=== PATIENT | female | born 1950 | race American Indian/Alaskan Native ===

== ENCOUNTER 2016-10-09 12:12 | Outpatient (CLI) | payer MEDICARE ==
--- NOTE | 2016-10-10 16:02 | Mammography Report ---
BONE DENSITY STUDY: DEFINITIONS: BMD = Bone Mineral Density T-score = BMD related to mean peak bone mass of young adult (mean expressed in Standard Deviation) Z-score = Age matched BMD expressed in SD World Health Organization (WHO) Diagnostic Criteria Normal T-score > -1 SD Osteopenia T-score between -1 and -2.4 SD Osteoporosis T-score -2.5 SD or below FINDINGS: The average L1-L4 BMD is 1.239 with a T-value score of 1.7. The average left hip BMD is 1.116 with a T-value score of 1.4. IMPRESSION: The patient's T-score is diagnostic for normal bone density and low relative risk for fracture. RECOMMENDATION: Follow-up with referring physician. NOTE: BMD is not the only risk factor for fracture; also consider factors such as the patient's age, risk of falling, previous osteoporotic fracture, family history of osteoporotic fractures, current smoker, and low body weight. Lakhani's triangle is a region of interest in femur, predominantly of trabecular bone. It is not a true anatomic site, and [facility] does not recommend its use clinically.
== END 2016-10-09 12:13 | disposition home or self-care (01) ==
LOC: MAMMO 12:12
PROVIDERS: ATTEND Physician Assistant
DX: M81.0 Age-related osteoporosis without current pathological fracture (principal); Z85.9 Personal history of malignant neoplasm, unspecified
CPT/HCPCS: 77080

== ENCOUNTER 2016-11-06 11:31 | Outpatient (CLI) | payer MEDICARE ==
--- NOTE | 2016-11-06 13:34 | XRay Report ---
ROUTINE CHEST, TWO VIEWS: HISTORY: Followup pleural effusion. The moderate right pleural effusion appears stable in size since 09/02/16. There is compressive atelectasis at the right lung base. No evidence for infiltrate, pleural effusion or pneumothorax. Heart size is within normal limits. Right [id number] is in good position. IMPRESSION: No change.
== END 2016-11-06 11:32 | disposition home or self-care (01) ==
LOC: XRAY 11:31
PROVIDERS: ATTEND Internal Medicine
DX: J90 Pleural effusion, not elsewhere classified (principal)
CPT/HCPCS: 71020

== ENCOUNTER 2016-12-05 12:59 | Outpatient (CLI) | payer MEDICARE ==
--- NOTE | 2016-12-05 14:32 | XRay Report ---
Bilateral knee: History: Chronic knee pain. Findings: Narrowing of the medial, lateral and patellofemoral compartment knee joint. Sclerotic articular surfaces with peripheral osteophyte suggestive of moderate to severe degenerative changes. No fracture. No soft tissue lesion. Impression: Moderate to severe tricompartment degenerative changes right and left knee.
== END 2016-12-05 13:00 | disposition home or self-care (01) ==
LOC: XRAY 12:59
PROVIDERS: ATTEND Physician Assistant
DX: M25.762 Osteophyte, left knee (principal); M25.761 Osteophyte, right knee

== ENCOUNTER 2017-04-08 12:03 | Outpatient (CLI) | payer MEDICARE ==
[2017-04-08 12:41] LABS: Blood Urea Nitrogen 17 mg/dL (7-17)
--- NOTE | 2017-04-09 08:05 | Cat Scan Report ---
CT CHEST WITH CONTRAST HISTORY: Breast cancer, pain with breathing. TECHNIQUE: Helical CT and 1.25 mm intervals with sagittal and coronal reformatted images. IV contrast was administered. COMPARISON: Correlation is made to the PET/CT dated 05/02/16. FINDINGS: Surgical changes in the left breast are again noted and appear stable. A left axillary lymph node has decreased from 2.1 cm to 1.6 cm. A left subpectoral lymph node has decreased from 2.2 cm to 1.4 cm. Borderline paratracheal lymph nodes have also decreased in size. No new thoracic adenopathy is appreciated. Right pleural drain has been removed since 05/02/16. The loculated right pleural effusion has decreased by 50% or more. No left pleural collection. There are numerous areas of focal pleural thickening and nodularity particularly within the right lung consistent with pleural metastasis. Most of the pleural nodules appear slightly decreased in size since the previous exam. For instance, a pleural-based mass in the medial right lung base has decreased from 2.2 cm to 1.4 cm. There are few tiny areas of pleural thickening along the major fissure in the left lung which probably represents early left pleural metastasis which are unchanged. 1 cm nodule in the left lower lobe is stable. No new pulmonary masses. No infiltrate or pneumothorax. Heart size is within normal limits. The mediastinal vessels are patent. Thyroid gland, tracheobronchial tree and esophagus remain within normal limits. There is mild multilevel thoracic spondylosis but no evidence for fracture or suspicious bony lesion. 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 Impression: No acute cardiopulmonary process is appreciated. Decreased complex and loculated right pleural effusion. 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 Improved left axillary/left subpectoral/peritracheal lymphadenopathy.
--- NOTE | 2017-04-09 08:10 | Cat Scan Report ---
CT ABDOMEN WITH CONTRAST HISTORY: Breast cancer, abdominal pain, pain with breathing. TECHNIQUE: Helical CT following IV contrast. Sagittal and coronal reformatted images. COMPARISON: Head CT dated 05/02/16. FINDINGS: The liver and spleen remain normal size and attenuation. No suspicious mass has developed. Noncalcified debris is identified in the gallbladder which probably represent sludge or noncalcified stone. No biliary dilatation or inflammation. The pancreas, kidneys and right adrenal gland remain normal. A 1 cm nodule is identified in the medial limb of the left adrenal gland which is unchanged since the previous PET/CT. This probably represents a small adenoma. The visualized bowel loops are normal caliber and wall thickness. The appendix is not included. The aorta is normal caliber. No evidence for abdominal adenopathy, ascites or suspicious mass. There is moderate thoracolumbar spondylosis no evidence for fracture or bony lesion. Moderate to large umbilical hernia containing fat is noted in the 3 cm neck. IMPRESSION: No evidence for metastatic disease to the abdomen. No acute process noted. Probable cholelithiasis or sludge in the gallbladder. Left adrenal adenoma, unchanged. Umbilical hernia containing fat.
== END 2017-04-08 12:04 | disposition home or self-care (01) ==
LOC: CT 12:03
DX: C78.2 Secondary malignant neoplasm of pleura (principal); C50.412 Malignant neoplasm of upper-outer quadrant of left female breast; D35.02 Benign neoplasm of left adrenal gland; K42.9 Umbilical hernia without obstruction or gangrene; K82.8 Other specified diseases of gallbladder; M47.894 Other spondylosis, thoracic region; J94.8 Other specified pleural conditions; R91.1 Solitary pulmonary nodule; J90 Pleural effusion, not elsewhere classified; E11.9 Type 2 diabetes mellitus without complications; I10 Essential (primary) hypertension; J45.909 Unspecified asthma, uncomplicated; J96.10 Chronic respiratory failure, unspecified whether with hypoxia or hypercapnia
CPT/HCPCS: 36415; 71260; 74160; 82565; 84520; Q9967

== ENCOUNTER 2017-05-15 17:50 | Emergency (ER) | payer MEDICARE ==
[2017-05-15 18:30] VITALS: BP 144/98
--- NOTE | 2017-05-15 20:37 | XRay Report ---
FINAL REPORT PROCEDURE: XR HIP 2-3V LT TECHNIQUE: AP view of the pelvis and lateral view of the left hip are obtained HISTORY: fall / left lower back / hip pain COMPARISON: No prior studies are available for comparison. FINDINGS: There is no fracture or dislocation. No arthritic changes are seen. IMPRESSION: No fracture is seen.
[2017-05-15] MEDS ORDERED: TYLENOL PO ONE (22:00)
--- NOTE | 2017-05-15 22:00 | Emergency Department Report ---
ED Fall HPI - General Chief Complaint: Fall Stated Complaint: FALL Time Seen by Provider: 05/15/17 21:16 Source: patient Mode of arrival: Wheelchair - History of Present Illness Initial Comments: This is a 66-year-old female nontoxic, well nourished in appearance, no acute signs of distress since the ED complaining of low back pain and left hip pain status post fall has occurred 3 days ago. Patient stated that her knee gave out and she fell backwards landed on her left buttock region. Patient denies any numbness, tingling, joint swelling, fever, chills, headache, nausea or vomiting, chest pain and short of breath. He denies any head trauma. Denies loss of consciousness. Patient stated that her was there during fall. Daughter and were present during fall. Daughter stated that when patient fell she was holding on to the wall and did not fall fast and hard. Patient denies any allergies. Patient denies any abnormal gait but stated she is in pain when waking due to the left hip. 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 denies: headache, neck pain, numbness, weakness, chest paint, shortness of breath, abdominal pain, hematuria, unable to walk, lightheaded, vertigo, confusion - Related Data Home Medications Medication Instructions Recorded Confirmed Last Taken Carvedilol [Carvedilol] 3.125 mg PO BID 09/02/16 09/02/16 09/01/16 3.125mg Cyproheptadine HCl [Cyproheptadine 4 mg PO DAILY 09/02/16 09/02/16 09/01/16 HCl] 4mg Exemestane [Exemestane] 25 mg PO BID 09/02/16 09/02/16 09/01/16 25mg Furosemide [Furosemide] 40 mg PO DAILY 09/02/16 09/02/16 09/01/16 40mg Metoclopramide HCl [Metoclopramide 10 mg PO DAILY 09/02/16 09/02/16 09/01/16 HCl] 10mg Previous Rx's Medication Instructions Recorded Last Taken Type Metformin HCl [Glucophage] 1,000 mg PO BID #60 tablet 02/07/16 09/01/16 Rx 1000mg Omeprazole [PriLOSEC] 20 mg PO QDAY #30 capsule. 02/07/16 09/01/16 Rx 20mg Acetaminophen [Arthritis Pain 650 mg PO Q6H #30 tablet.er 05/15/17 Unknown Rx Relief] Allergies Allergy/AdvReac Type Severity Reaction Status Date / Time No Known Allergies Allergy Verified 05/15/17 18:23 ED Review of Systems ROS: Stated complaint: FALL Other details as noted in HPI Constitutional: denies: chills, fever Eyes: denies: eye pain, eye discharge, vision change ENT: denies: ear pain, throat pain Respiratory: denies: cough, shortness of breath, wheezing Cardiovascular: denies: chest pain, palpitations Endocrine: no symptoms reported Gastrointestinal: denies: abdominal pain, nausea, diarrhea Genitourinary: denies: urgency, dysuria, discharge Musculoskeletal: back pain (low). denies: joint swelling, arthralgia Skin: denies: rash, lesions Neurological: denies: headache, weakness, paresthesias Psychiatric: denies: anxiety, depression Hematological/Lymphatic: denies: easy bleeding, easy bruising ED Past Medical Hx - Past Medical History Hx Hypertension: Yes Hx Heart Attack/AMI: No Hx Congestive Heart Failure: Yes Hx Diabetes: Yes Hx GERD: Yes Hx Liver Disease: No Hx of Cancer: Yes (left breast) Hx Seizures: No Hx Psychiatric Treatment: Yes (depression) Hx Asthma: Yes Hx COPD: Yes (O2 @ home PRN) Hx HIV: No Additional medical history: Breast Cancer- Received chemo on 03/05/16. anemia. high cholesterol - Surgical History Hx Appendectomy: Yes Additional Surgical History: Port Placement to right chest. Hyst. Left knee surgery. sinus surgery. tonsillectomy - Social History Smoking Status: Never Smoker Substance Use Type: Prescribed - Medications Home Medications: Home Medications Medication Instructions Recorded Confirmed Last Taken Type Metformin HCl [Glucophage] 1,000 mg PO BID #60 tablet 05/11/16 12/05/16 12/04/ 16 Rx 1000mg Omeprazole [PriLOSEC] 20 mg PO QDAY #30 capsule. 02/07/16 09/02/16 09/01/16 Rx 20mg Carvedilol [Carvedilol] 3.125 mg PO BID 09/02/16 09/02/16 09/01/16 History 3.125mg Cyproheptadine HCl [Cyproheptadine 4 mg PO DAILY 09/02/16 09/02/16 09/01/16 History HCl] 4mg Exemestane [Exemestane] 25 mg PO BID 09/02/16 09/02/16 09/01/16 History 25mg Furosemide [Furosemide] 40 mg PO DAILY 09/02/16 09/02/16 09/01/16 History 40mg Metoclopramide HCl [Metoclopramide 10 mg PO DAILY 09/02/16 09/02/16 09/01/16 History HCl] 10mg Acetaminophen [Arthritis Pain 650 mg PO Q6H #30 tablet.er 05/15/17 Unknown Rx Relief] ED Physical Exam - General Limitations: Physical Limitation General appearance: alert, in no apparent distress - Head Head exam: Present: atraumatic, normocephalic, normal inspection - Eye Eye exam: Present: normal appearance, PERRL, EOMI. Absent: scleral icterus, conjunctival injection, nystagmus, periorbital swelling, periorbital tenderness Pupils: Present: normal accommodation - ENT ENT exam: Present: normal exam, normal orophraynx, mucous membranes moist, TM's normal bilaterally, normal external ear exam - Neck Neck exam: Present: normal inspection, full ROM. Absent: tenderness, meningismus, lymphadenopathy, thyromegaly - Respiratory Respiratory exam: Present: normal lung sounds bilaterally. Absent: respiratory distress, wheezes, rales, rhonchi, stridor, chest wall tenderness, accessory muscle use, decreased breath sounds, prolonged expiratory - Cardiovascular Cardiovascular Exam: Present: regular rate, normal rhythm, normal heart sounds. Absent: bradycardia, tachycardia, irregular rhythm, systolic murmur, diastolic murmur, rubs, gallop - GI/Abdominal GI/Abdominal exam: Present: soft, normal bowel sounds. Absent: distended, tenderness, guarding, rebound, rigid, diminished bowel sounds - Rectal Rectal exam: Present: deferred - Extremities Exam Extremities exam: Present: normal inspection, full ROM, normal capillary refill. Absent: tenderness, pedal edema, joint swelling, calf tenderness - Expanded Lower Extremity Exam Left Hip exam: Present: normal inspection, full ROM, external rotation, internal rotation, pelvic stability. Absent: tenderness, swelling, abrasion, laceration , ecchymosis, deformity, crepidus, dislocation, erythema, shortening Upper Leg exam: Present: normal inspection, full ROM. Absent: tenderness, swelling, abrasion, laceration, ecchymosis, deformity, crepidus, dislocation, erythema Knee exam: Present: normal inspection, full ROM, full knee extension. Absent: tenderness, swelling, abrasion, laceration, ecchymosis, deformity, crepidus, dislocation, erythema, effusion, pain w/ pronation/supination, posterior draw sign, pain/laxity with valgus, pain/laxity with varus Lower Leg exam: Present: normal inspection, full ROM. Absent: tenderness, swelling, abrasion, laceration, ecchymosis, deformity, crepidus, dislocation, erythema, palpable cord, Brayan's sign Ankle exam: Present: normal inspection, full ROM. Absent: tenderness, swelling , abrasion, laceration, ecchymosis, deformity, crepidus, dislocation, erythema, anterior draw sign Foot/Toe exam: Present: normal inspection, full ROM. Absent: tenderness, swelling, abrasion, laceration, ecchymosis, deformity, crepidus, dislocation, erythema, amputation, puncture wound, foreign body, calcaneal tenderness, tenderness at base of 5th metatarsal, nail avulsion, subungual hematoma Neuro vascular tendon exam: Present: no vascular compromise. Absent: pulse deficit, abnormal cap refill, motor deficit, sensory deficit, tendon deficit, extremity cold to touch, pallor, abnormal 2-point discrimination, decreased fine /light touch, foot drop, peroneal nerve deficit, significant pain with passive ROM of distal joint Gait: Positive: observed and normal - Back Exam Back exam: Present: normal inspection, full ROM, paraspinal tenderness (lumbar region). Absent: tenderness, CVA tenderness (R), CVA tenderness (L), muscle spasm, vertebral tenderness, rash noted - Neurological Exam Neurological exam: Present: alert, oriented X3, CN II-XII intact, normal gait, reflexes normal - Psychiatric Psychiatric exam: Present: normal affect, normal mood - Skin Skin exam: Present: warm, dry, intact, normal color. Absent: rash ED Course Vital Signs 05/15/17 05/15/17 18:27 22:17 Temperature 98.9 F Pulse Rate 88 Respiratory 17 18 Rate Blood Pressure 144/98 O2 Sat by Pulse 95 Oximetry - Reevaluation(s) Reevaluation #1: 05/15/17 22:07 Patient is able to speak in full sentences with no signs of distress noted. ED Medical Decision Making - Medical Decision Making Ed course: This is a 66-year-old female that presents with low back strain and hip strain s/p fall 1- patient was examined. Xray of hip has been obtained with normal findings of any fractures or dislocation. Dictated by radiologist. Patient was notified of xray findings with no further questions noted by the patient 2- Patient received acetaminophen 650 in the ed as well as d/c 3- patient was instructed follow-up with orthopedic doctor in 3-5 days for possible MRI or if symptoms worsen such as numbness or tingling sensation in extremities, headache, dizziness, visual changes, nausea vomiting, chest pain, shortness of breathe, or abdominal pain, return back to emergency room as was possible. 4- At time time of discharge, the patient does not seem toxic or ill in appearance. No acute signs of distress noted. Patient agrees to discharge treatment plan of care. No further questions noted by the patient. 5- patient states she does have a walker present and a cane at home. 6- patient was instructed not to bear any weight due to possible occult hip fracture and until cleared by orthopedic Critical care attestation.: If time is entered above; I have spent that time in minutes in the direct care of this critically ill patient, excluding procedure time. ED Disposition Clinical Impression: Low back strain Qualifiers: Encounter type: initial encounter Qualified Code(s): S39.012A - Strain of muscle, fascia and tendon of lower back, initial encounter Strain of hip Qualifiers: Encounter type: initial encounter Laterality: left Qualified Code(s): S76.012A - Strain of muscle, fascia and tendon of left hip, initial encounter Disposition: TO HOME OR SELFCARE Is pt being admited?: No Does the pt Need Aspirin: No Condition: Stable Instructions: Acetaminophen (By mouth), Hip Sprain (ED) Additional Instructions: Do not put any weight on hip/leg until cleared by orthopedic doctor Follow-up with orthopedic doctor in 3-5 days for possible MRI or if symptoms worsen such as numbness or tingling sensation in extremities, headache, dizziness, visual changes, nausea vomiting, chest pain, shortness of breathe, or abdominal pain, return back to emergency room as was possible. Prescriptions: Acetaminophen [Arthritis Pain Relief] 650 mg PO Q6H #30 tablet.er Referrals: ANJU CASTRO MD [Primary Care Provider] - 3-5 Days JOSE NARAYAN MD [Staff Physician] - 3-5 Days [facility] [Outside] - 3-5 Days [facility] [Outside] - 3-5 Days
== END 2017-05-15 22:34 | disposition home or self-care (01) ==
LOC: ED 17:50
DX: S39.012A Strain of muscle, fascia and tendon of lower back, initial encounter (principal); S76.012A Strain of muscle, fascia and tendon of left hip, initial encounter; I50.9 Heart failure, unspecified; E11.9 Type 2 diabetes mellitus without complications; K21.9 Gastro-esophageal reflux disease without esophagitis; F32.9 Major depressive disorder, single episode, unspecified; J45.909 Unspecified asthma, uncomplicated; W17.89XA Other fall from one level to another, initial encounter; Y93.89 Activity, other specified; Y99.8 Other external cause status; Y92.89 Other specified places as the place of occurrence of the external cause
CPT/HCPCS: 99283

== ENCOUNTER 2017-05-25 15:37 | Emergency (ER) | payer MEDICARE ==
[2017-05-25] MEDS ORDERED: BENADRYL IV ONE (19:36)
[2017-05-25] MEDS ORDERED: PEPCID IV ONE (19:36)
[2017-05-25] MEDS ORDERED: DILAUDID IV ONE (19:49)
[2017-05-25] MEDS ORDERED: ZOFRAN IV ONE (19:49)
--- NOTE | 2017-05-25 20:35 | Emergency Department Report ---
HPI - General Chief Complaint: Allergic Reaction Time Seen by Provider: 05/25/17 19:36 - HPI HPI: 66 year old female with multiple past medical problems presents to the hospital with complaints of complaints about 1 PM. Swelling started to upper and lower lip to see to spread to face. Patient denies tongue or throat swelling. She feels like the swelling is causing nose to feel closed up. No shortness of breath or stridor reported. Patient has been on Benazapril for several years and last dose was this a.m. Denies rash or wheezing. ED Past Medical Hx - Past Medical History Hx Hypertension: Yes Hx Heart Attack/AMI: No Hx Congestive Heart Failure: Yes Hx Diabetes: Yes Hx GERD: Yes Hx Liver Disease: No Hx Seizures: No Hx Psychiatric Treatment: Yes (depression) Hx Asthma: Yes Hx COPD: Yes (O2 @ home PRN) Hx HIV: No Additional medical history: Breast Cancer- Received chemo on 03/05/16. anemia. high cholesterol. DVT - Surgical History Hx Appendectomy: Yes Additional Surgical History: Port Placement to right chest. Hyst. Left knee surgery. sinus surgery. tonsillectomy - Social History Smoking Status: Never Smoker Substance Use Type: None - Medications Home Medications: Home Medications Medication Instructions Recorded Confirmed Last Taken Type Omeprazole [PriLOSEC] 20 mg PO QDAY #30 capsule. 02/07/16 05/25/17 05/25/17 Rx Cyproheptadine HCl [Cyproheptadine 4 mg PO DAILY 09/02/16 05/25/17 05/25/17 History HCl] Exemestane [Exemestane] 25 mg PO DAILY 09/02/16 05/25/17 05/25/17 History Metoclopramide HCl [Metoclopramide 10 mg PO DAILY 09/02/16 05/25/17 05/24/17 21: 00 History HCl] Benazepril (Nf) 20 mg PO 05/25/17 05/25/17 History FLUoxetine [PROzac] 20 mg PO QDAY 05/25/17 05/25/17 05/25/17 History Famotidine [Pepcid] 20 mg PO BID #10 tablet 05/25/17 Unknown Rx Ferrous Sulfate [Feosol] 325 mg PO BID 05/25/17 05/25/17 05/25/17 History Furosemide [Lasix] 10 mg PO QDAY #15 tablet 05/25/17 Unknown Rx Metformin HCl [Metformin HCl ER] 1,000 mg PO QAM #30 [id number] 05/25/17 Unknown Rx amLODIPine [Norvasc] 10 mg PO DAILY 05/25/17 05/25/17 05/25/17 History diphenhydrAMINE [Benadryl CAP] 25 mg PO Q6HR PRN #20 capsule 05/25/17 Unknown Rx predniSONE [Deltasone] 40 mg PO QDAY 5 Days 05/25/17 Unknown Rx ED Review of Systems ROS: Stated complaint: LIP SWELLING Other details as noted in HPI Comment: All other systems reviewed and negative Other: Constitutional: No fevers chills or weight loss Eyes: No eye pain visual changes or discharge ENT: as per hpi Neck: Denies pain Respiratory: Denies cough wheezing shortness of breath Cardiovascular: Denies chest pain, palpitations, syncope GI: Denies abdominal pain, nausea, vomiting, diarrhea : Denies dysuria Musculoskeletal: Denies back pain Skin: Denies rash, lesions, erythema Neurologic: Denies headache, numbness, weakness Psychiatric: Denies suicidal ideation, hallucinations Physical Exam - Physical Exam Vital Signs: Vital Signs 05/25/17 05/25/17 05/25/17 15:45 15:46 15:48 Temperature Pulse Rate Respiratory Rate Blood Pressure 123/85 123/85 123/85 O2 Sat by Pulse 100 100 Oximetry 05/25/17 05/25/17 05/25/17 15:50 15:52 15:54 Temperature Pulse Rate 79 82 83 Respiratory 17 13 21 Rate Blood Pressure 123/85 123/85 123/85 O2 Sat by Pulse 100 99 100 Oximetry 05/25/17 05/25/17 05/25/17 15:55 15:56 15:58 Temperature 98.4 F Pulse Rate 74 80 Respiratory 19 13 Rate Blood Pressure 123/85 123/85 O2 Sat by Pulse 100 100 Oximetry 05/25/17 05/25/17 05/25/17 16:00 16:02 16:04 Temperature Pulse Rate 79 88 78 Respiratory 11 L 11 L 12 Rate Blood Pressure 122/84 122/84 122/84 O2 Sat by Pulse 99 100 100 Oximetry 05/25/17 05/25/17 05/25/17 16:06 16:08 16:10 Temperature Pulse Rate 76 78 73 Respiratory 15 16 12 Rate Blood Pressure 122/84 122/84 122/84 O2 Sat by Pulse 100 100 100 Oximetry 05/25/17 05/25/17 05/25/17 16:12 16:14 16:16 Temperature Pulse Rate 76 72 75 Respiratory 13 14 12 Rate Blood Pressure 122/84 122/84 120/82 O2 Sat by Pulse 100 99 100 Oximetry 05/25/17 05/25/17 05/25/17 16:18 16:20 16:22 Temperature Pulse Rate 71 80 73 Respiratory 12 13 11 L Rate Blood Pressure 120/82 120/82 120/82 O2 Sat by Pulse 99 99 100 Oximetry 05/25/17 05/25/17 05/25/17 16:24 16:26 16:28 Temperature Pulse Rate 72 76 77 Respiratory 16 12 10 L Rate Blood Pressure 120/82 120/82 120/82 O2 Sat by Pulse 100 99 100 Oximetry 05/25/17 05/25/17 05/25/17 16:30 16:32 16:34 Temperature Pulse Rate 74 73 76 Respiratory 13 11 L 12 Rate Blood Pressure 123/80 123/80 123/80 O2 Sat by Pulse 98 100 100 Oximetry 05/25/17 05/25/17 05/25/17 16:36 16:38 16:40 Temperature Pulse Rate 75 74 77 Respiratory 12 13 11 L Rate Blood Pressure 123/80 123/80 123/80 O2 Sat by Pulse 100 100 99 Oximetry 05/25/17 05/25/17 05/25/17 16:42 16:44 16:46 Temperature Pulse Rate 79 78 75 Respiratory 14 13 17 Rate Blood Pressure 123/80 123/80 121/85 O2 Sat by Pulse 99 100 100 Oximetry 05/25/17 05/25/17 05/25/17 16:48 16:50 16:52 Temperature Pulse Rate 75 75 71 Respiratory 13 11 L 12 Rate Blood Pressure 121/85 121/85 121/85 O2 Sat by Pulse 100 100 100 Oximetry 05/25/17 05/25/17 05/25/17 16:54 16:56 16:58 Temperature Pulse Rate 82 80 82 Respiratory 12 14 12 Rate Blood Pressure 121/85 121/85 121/85 O2 Sat by Pulse 99 100 99 Oximetry 05/25/17 05/25/17 05/25/17 17:00 17:02 17:04 Temperature Pulse Rate 85 79 81 Respiratory 10 L 12 12 Rate Blood Pressure 146/71 146/71 146/71 O2 Sat by Pulse 100 100 98 Oximetry 05/25/17 05/25/17 05/25/17 17:06 17:08 17:10 Temperature Pulse Rate 81 78 86 Respiratory 11 L 12 14 Rate Blood Pressure 146/71 146/71 146/71 O2 Sat by Pulse 98 99 100 Oximetry 05/25/17 05/25/17 05/25/17 17:12 17:14 17:16 Temperature Pulse Rate 83 84 87 Respiratory 12 15 15 Rate Blood Pressure 146/71 146/71 125/92 O2 Sat by Pulse 99 99 98 Oximetry 05/25/17 05/25/17 05/25/17 17:18 17:20 17:22 Temperature Pulse Rate 83 93 H 86 Respiratory 16 12 15 Rate Blood Pressure 125/92 125/92 125/92 O2 Sat by Pulse 99 99 100 Oximetry Physical Exam: General: No limitations, patient is alert in no acute distress Head exam: Atraumatic, normocephalic Eyes exam: Normal appearance, pupils equal reactive to light, extraocular movements intact ENT: Moist mucous membrane, swelling isolated to upper and mild swelling to the lower lip. No tongue swelling, no swelling to posterior oropharynx Neck exam: Normal inspection, full range of motion, no meningismus nontender Respiratory exam: Clear to auscultation bilateral, no wheezes, rales, crackles Cardiovascular: Normal rate and rhythm, normal heart sounds Abdomen: Soft, nondistended, and nontender, with normal bowel sounds, no rebound, or guarding Extremity: Full range of motion normal inspection no deformity Back: Normal Inspection, full range of motion, no tenderness Neurologic: Alert, oriented x3, cranial nerves intact, no motor or sensory deficit Psychiatric: normal affect, normal mood Skin: Warm, dry, intact, no rash ED Course Vital Signs 05/25/17 05/25/17 05/25/17 15:45 15:46 15:48 Temperature Pulse Rate Respiratory Rate Blood Pressure 123/85 123/85 123/85 O2 Sat by Pulse 100 100 Oximetry 05/25/17 05/25/17 05/25/17 15:50 15:52 15:54 Temperature Pulse Rate 79 82 83 Respiratory 17 13 21 Rate Blood Pressure 123/85 123/85 123/85 O2 Sat by Pulse 100 99 100 Oximetry 05/25/17 05/25/17 05/25/17 15:55 15:56 15:58 Temperature 98.4 F Pulse Rate 74 80 Respiratory 19 13 Rate Blood Pressure 123/85 123/85 O2 Sat by Pulse 100 100 Oximetry 05/25/17 05/25/17 05/25/17 16:00 16:02 16:04 Temperature Pulse Rate 79 88 78 Respiratory 11 L 11 L 12 Rate Blood Pressure 122/84 122/84 122/84 O2 Sat by Pulse 99 100 100 Oximetry 05/25/17 05/25/17 05/25/17 16:06 16:08 16:10 Temperature Pulse Rate 76 78 73 Respiratory 15 16 12 Rate Blood Pressure 122/84 122/84 122/84 O2 Sat by Pulse 100 100 100 Oximetry 05/25/17 05/25/17 05/25/17 16:12 16:14 16:16 Temperature Pulse Rate 76 72 75 Respiratory 13 14 12 Rate Blood Pressure 122/84 122/84 120/82 O2 Sat by Pulse 100 99 100 Oximetry 05/25/17 05/25/17 05/25/17 16:18 16:20 16:22 Temperature Pulse Rate 71 80 73 Respiratory 12 13 11 L Rate Blood Pressure 120/82 120/82 120/82 O2 Sat by Pulse 99 99 100 Oximetry 05/25/17 05/25/17 05/25/17 16:24 16:26 16:28 Temperature Pulse Rate 72 76 77 Respiratory 16 12 10 L Rate Blood Pressure 120/82 120/82 120/82 O2 Sat by Pulse 100 99 100 Oximetry 05/25/17 05/25/17 05/25/17 16:30 16:32 16:34 Temperature Pulse Rate 74 73 76 Respiratory 13 11 L 12 Rate Blood Pressure 123/80 123/80 123/80 O2 Sat by Pulse 98 100 100 Oximetry 05/25/17 05/25/17 05/25/17 16:36 16:38 16:40 Temperature Pulse Rate 75 74 77 Respiratory 12 13 11 L Rate Blood Pressure 123/80 123/80 123/80 O2 Sat by Pulse 100 100 99 Oximetry 05/25/17 05/25/17 05/25/17 16:42 16:44 16:46 Temperature Pulse Rate 79 78 75 Respiratory 14 13 17 Rate Blood Pressure 123/80 123/80 121/85 O2 Sat by Pulse 99 100 100 Oximetry 05/25/17 05/25/17 05/25/17 16:48 16:50 16:52 Temperature Pulse Rate 75 75 71 Respiratory 13 11 L 12 Rate Blood Pressure 121/85 121/85 121/85 O2 Sat by Pulse 100 100 100 Oximetry 05/25/17 05/25/17 05/25/17 16:54 16:56 16:58 Temperature Pulse Rate 82 80 82 Respiratory 12 14 12 Rate Blood Pressure 121/85 121/85 121/85 O2 Sat by Pulse 99 100 99 Oximetry 05/25/17 05/25/17 05/25/17 17:00 17:02 17:04 Temperature Pulse Rate 85 79 81 Respiratory 10 L 12 12 Rate Blood Pressure 146/71 146/71 146/71 O2 Sat by Pulse 100 100 98 Oximetry 05/25/17 05/25/17 05/25/17 17:06 17:08 17:10 Temperature Pulse Rate 81 78 86 Respiratory 11 L 12 14 Rate Blood Pressure 146/71 146/71 146/71 O2 Sat by Pulse 98 99 100 Oximetry 05/25/17 05/25/17 05/25/17 17:12 17:14 17:16 Temperature Pulse Rate 83 84 87 Respiratory 12 15 15 Rate Blood Pressure 146/71 146/71 125/92 O2 Sat by Pulse 99 99 98 Oximetry 05/25/17 05/25/17 05/25/17 17:18 17:20 17:22 Temperature Pulse Rate 83 93 H 86 Respiratory 16 12 15 Rate Blood Pressure 125/92 125/92 125/92 O2 Sat by Pulse 99 99 100 Oximetry - Reevaluation(s) Reevaluation #1: 05/25/17 21:23 Patient received Benadryl, Pepcid, and Solu-Medrol. Dilaudid and Zofran given for chronic pain 05/25/17 22:20 Pt is lower lip swelling has improved however upper lip still swollen. Still denies any still denies any tongue swelling or throat swelling at this time ED Medical Decision Making - Medical Decision Making Patient was observed for several hours in the ED. Symptoms are not significantly advanced and actually improved at the ED treatment. Patient will be discharged home on medications for allergic reaction. Patient instructed to to discontinue her benazepril and follow-up with PMD for further BP medication adjustment as necessary. Outpatient follow-up with PMD will be encouraged. I will restart patient's metformin and Lasix as requested since she no longer has any more of the medication. - Differential Diagnosis allergic reaction, angioedema Critical Care Time: No Critical care attestation.: If time is entered above; I have spent that time in minutes in the direct care of this critically ill patient, excluding procedure time. ED Disposition Clinical Impression: CHRISTEL inhibitor-aggravated angioedema Disposition: DC- TO HOME OR SELFCARE Is pt being admited?: No Does the pt Need Aspirin: No Condition: Stable Instructions: Angioedema (ED) Additional Instructions: STOP BENAZAPRIL. Please report Benazepril as and allergy and inform your health care providers that this medicine causes your lip to swell while taking this medication. Follow-up with primary care doctor for further adjustment of blood pressure medication. Take the allergy medication as prescribed. Contineu to monitor your sugars closely because steroids may cause your sugar to be elevated more than normal. Return if symptoms worsen. Prescriptions: diphenhydrAMINE [Benadryl CAP] 25 mg PO Q6HR PRN #20 capsule PRN Reason: Allergic Reaction Famotidine [Pepcid] 20 mg PO BID #10 tablet Furosemide [Lasix] 10 mg PO QDAY #15 tablet Metformin HCl [Metformin HCl ER] 1,000 mg PO QAM #30 [id number] predniSONE [Deltasone] 40 mg PO QDAY 5 Days Referrals: PRIMARY CARE, [Primary Care Provider] - 2-3 Days Time of Disposition: 22:33
[2017-05-25 23:11] VITALS: BP 146/97
== END 2017-05-25 23:08 | disposition home or self-care (01) ==
LOC: ED 15:37
DX: T78.3XXA Angioneurotic edema, initial encounter (principal); I11.0 Hypertensive heart disease with heart failure; I50.9 Heart failure, unspecified; E11.9 Type 2 diabetes mellitus without complications; K21.9 Gastro-esophageal reflux disease without esophagitis; J44.9 Chronic obstructive pulmonary disease, unspecified
CPT/HCPCS: 82962; 96374; 96375; 99283; J1170; J1200; J2405; J2930

== ENCOUNTER 2017-07-25 08:20 | Outpatient (CLI) | payer MEDICARE ==
[2017-07-25 08:37] LABS: Hematocrit 32.1 % (30.3-42.9); Hemoglobin 10.1 gm/dl (10.1-14.3); Mean Corpuscular HGB Conc 32 % (30-34); Platelet Count 363 K/mm3 (140-440); Red Blood Count 4.62 M/mm3 (3.65-5.03); Red Cell Distribution Width 19.3 % (13.2-15.2); White Blood Count 6.3 K/mm3 (4.5-11.0)
[2017-07-25 08:38] LABS: Mean Corpuscular Hemoglobin 22 pg (28-32); Mean Corpuscular Volume 69 fl (79-97)
[2017-07-25 08:57] LABS: Alanine Aminotransferase 26 units/L (7-56); Albumin/Globulin Ratio 0.8 %; Alkaline Phosphatase 71 units/L (35-129); Anion Gap 20 mmol/L; BUN/Creatinine Ratio 12; Blood Urea Nitrogen 11 mg/dL (7-17); Calcium 8.7 mg/dL (8.4-10.2); Carbon Dioxide 26 mmol/L (22-30); Chloride 100.9 mmol/L (98-107); Glucose 126 mg/dL (65-100); Potassium 3.6 mmol/L (3.6-5.0); Sodium 143 mmol/L (137-145); Total Protein 6.9 g/dL (6.3-8.2)
[2017-07-25] MEDS ORDERED: NACL ONE (09:05)
--- NOTE | 2017-07-25 15:22 | Cat Scan Report ---
CTA CHEST INDICATION: Shortness of breath. Breast cancer. COMPARISON: 04/08/2017 FINDINGS: Chest CTA performed following intravenous administration of 100 cc of Omnipaque 350. Rotational MIP's also obtained. Stable, normal heart size and great vessels without aortic aneurysm, dissection or suspicious pulmonary arterial filling defects. Patent central airway. Few small mediastinal lymph nodes may again be noted as also an approximately 1.2 cm right paratracheal lymph node, axial image 65, series 2. No pericardial effusion. Approximately 1.9 cm left axillary lymph node again noted, axial image 61 series 2, previously 1.6 cm. Few left subpectoral lymph nodes also appear stable, axial image 43. Normal imaged thyroid. Increased interstitial densities within both lungs now noted, greatest at the right lung base/lower lobe with few confluent opacities measuring approximately 3 x 2.5 cm on axial image 141, series 2. Small, somewhat loculated right pleural fluid again noted, stable to slightly smaller along inner aspect of the right ribs and measuring approximately 3.5 x 2.8 cm, axial image 153, series 2, previously approximately 5.2 x 3 cm, axial image 82. Multifocal right hemithorax nodular pleural thickening/masses again noted, axial series 2, images 18-178 with an index lesion approximately 2.7 x 1.2 cm on axial image 145, series 2, previously the same. Approximately 8 mm noncalcified presumed metastatic nodule in the superior segment of the left lower lobe again noted, axial image 103, series 2. Nonspecific distal esophageal wall prominence/thickening, not excluded for gastroesophageal reflux and/or hiatal hernia, amongst others. Few metastatic masses again project adjacent/posterior to the liver, possibly along the pleura posteriorly as measuring approximately 3 cm, axial image 162 and approximately 4 cm, axial image 173, amongst others. Mild air filled distal esophageal prominence/wall thickening, not excluded for gastroesophageal reflux and/or hiatal hernia, amongst illness. Approximately 9 mm hypodense left adrenal nodule/adenoma appears stable, axial image 194. Mild multilevel thoracic spine degenerative changes. CONCLUSION: 1. No CT evidence of pulmonary embolism, though scattered bilateral interstitial infiltrates are new and noted greatest at the right lung base/lower lobe, as described. These may represent lymphangitic spread of tumor in this patient with multiple/diffuse right pleural metastases, left lower lobe nodule and left axillary/subpectoral lymph nodes again noted, as described. Please correlate. 2. Few other incidental findings, as above. Thank you for the opportunity to participate in this patient's care.
--- NOTE | 2017-07-28 07:30 | Vascular Lab Report ---
LOWER EXTREMITY VENOUS DUPLEX: REASON FOR EXAM: Swelling of the lower extremities. COMMENTS ON THE RIGHT: All veins visualized are freely compressible without evidence of internal echogenicity. Flow is spontaneous and phasic throughout. COMMENTS ON THE LEFT: All veins visualized are freely compressible without evidence of internal echogenicity. Flow is spontaneous and phasic throughout. IMPRESSION: No evidence of acute or chronic deep venous thrombosis in either lower extremity.
== END 2017-07-25 08:21 | disposition home or self-care (01) ==
LOC: CT 08:20
PROVIDERS: ATTEND Internal Medicine
DX: C78.2 Secondary malignant neoplasm of pleura (principal); M47.894 Other spondylosis, thoracic region; R91.8 Other nonspecific abnormal finding of lung field; R60.9 Edema, unspecified
CPT/HCPCS: 36415; 71275; 80053; 85027; 93970; Q9967

== ENCOUNTER 2018-11-16 10:19 | Outpatient (CLI) | payer MEDICARE ==
[2018-11-16 11:19] LABS: Hematocrit 38.9 % (30.3-42.9); Hemoglobin 12.3 gm/dl (10.1-14.3); Mean Corpuscular HGB Conc 32 % (30-34); Mean Corpuscular Volume 84 fl (79-97); Platelet Count 389 K/mm3 (140-440); Red Blood Count 4.61 M/mm3 (3.65-5.03)
[2018-11-16 11:23] LABS: Red Cell Distribution Width 28.9 % (13.2-15.2)
[2018-11-16 11:44] LABS: Alanine Aminotransferase 8 units/L (7-56); BUN/Creatinine Ratio 19; Blood Urea Nitrogen 17 mg/dL (7-17); Calcium 9.4 mg/dL (8.4-10.2); Hemolysis Index 8
--- NOTE | 2018-11-16 12:20 | Ultrasound Report ---
ULTRASOUND CHEST History: Chronic cough. Findings: Targeted grayscale ultrasound of both sides of the chest were performed. A large left pleural effusion is identified measuring approximately 1900 cc. No left pleural effusion was detected. Impression: Large right pleural effusion.
== END 2018-11-16 10:20 | disposition home or self-care (01) ==
LOC: US 10:19
PROVIDERS: ATTEND Internal Medicine
DX: J90 Pleural effusion, not elsewhere classified (principal); K21.9 Gastro-esophageal reflux disease without esophagitis; E11.9 Type 2 diabetes mellitus without complications; I11.0 Hypertensive heart disease with heart failure; I50.9 Heart failure, unspecified; J44.9 Chronic obstructive pulmonary disease, unspecified; E66.9 Obesity, unspecified; Z90.710 Acquired absence of both cervix and uterus
CPT/HCPCS: 36415; 76604; 80053; 85027

== ENCOUNTER 2018-11-23 07:24 | Day surgery (SDC) | payer MEDICARE ==
[2018-11-23 09:34] LABS: INR 1.01 (0.87-1.13)
--- NOTE | 2018-11-23 10:29 | Short Stay Summary ---
Short Stay Documentation Date of service: 11/23/18 - History Principal diagnosis: left pleural effusion Past Medical History: cancer (left breast CA) - Allergies and Medications Current Medications: Allergies benazepril Adverse Reaction (Verified 05/25/17 22:24) Angioedema Home Medications Medication Instructions Recorded Confirmed Last Taken Type Omeprazole [PriLOSEC] 20 mg PO QDAY #30 capsule. 02/07/16 11/23/18 11/22/18 Rx 20mg Exemestane 25 mg PO DAILY 09/02/16 11/23/18 11/22/18 History 25mg FLUoxetine [PROzac] 20 mg PO QDAY 05/25/17 11/23/18 11/22/18 History 20mg amLODIPine [Norvasc] 10 mg PO DAILY 05/25/17 11/23/18 11/22/18 History 10mg Apixaban [Eliquis] 5 mg PO DAILY 11/23/18 11/23/18 11/20/18 History 5mg Atenolol [Tenormin] 100 mg PO DAILY 11/23/18 11/23/18 11/22/18 History 100mg Carvedilol [Coreg] 3.125 mg PO BID 11/23/18 11/23/18 11/22/18 History 3.125mg Everolimus [Afinitor] 10 mg PO DAILY 11/23/18 11/23/18 11/22/18 History 10mg Fluticasone [Flonase] 50 mcg INHALATION DAILY 11/23/18 11/23/18 11/22/18 History 50mcg Furosemide [Lasix] 40 mg PO QDAY 11/23/18 11/23/18 11/22/18 History 40mg Loratadine [Claritin] 10 mg PO DAILY 11/23/18 11/23/18 11/22/18 History 10mg Losartan [Cozaar] 25 mg PO DAILY 11/23/18 11/23/18 11/22/18 History 25mg Metformin HCl [Metformin HCl ER] 1,000 mg PO BID 11/23/18 11/23/18 11/22/18 History Potassium Chloride [Klor-Con M10] 10 meq PO DAILY 11/23/18 11/23/18 11/22/18 History 10meq Umeclidinium Brm/Vilanterol Tr 25 mcg INTRANASAL DAILY 11/23/18 11/23/18 11/22/18 History [Anoro Ellipta 62.5-25 Mcg INH] 25mcg oxyCODONE /ACETAMINOPHEN [Percocet 1 tab PO Q8HR PRN 11/23/18 11/23/18 11/22/18 History 5/325 mg] 1 traZODone [Desyrel] 100 mg PO DAILY 11/23/18 11/23/18 11/22/18 History 100mg - Physical exam General appearance: mild distress, well-nourished Lungs: Other (decreased BS on left) - Brief post op/procedure progress note Date of procedure: 11/23/18 Pre-op diagnosis: left pleural effusion Post-op diagnosis: other (left hemothorax) Procedure: US left thoracentesis Anesthesia: local Findings: large left pleural fluid collection Surgeon: RENE PATHAK Estimated blood loss: none Pathology: list (120cc) Specimen disposition: to lab Condition: stable - Disposition Condition at discharge: Good Disposition: DC-01 TO HOME OR SELFCARE Short Stay Discharge Plan Follow up with: JOSE ALBERTO WONG MD [Primary Care Provider] - 7 Days
--- NOTE | 2018-11-23 10:54 | Ultrasound Report ---
ULTRASOUND THORACENTESIS History: Left Pleural effusion Description of procedure: Informed consent was obtained. Sterile technique was utilized. 1% lidocaine for skin anesthesia. Using ultrasound guidance, a 5 [place] centesis needle was advanced into the left pleural space. There was spontaneous return of bloody fluid. 1700 cc of fluid was aspirated. 120 cc of fluid was sent to the lab for analysis. No complications. A followup chest x-ray was ordered. Impression: Successful ultrasound-guided left thoracentesis.
[2018-11-23 11:34] VITALS: BP 101/59
[2018-11-23 11:53] LABS: Alanine Aminotransferase 8 units/L (7-56); Albumin 3.8 g/dL (3.9-5); BUN/Creatinine Ratio 18; Blood Urea Nitrogen 18 mg/dL (7-17); Calcium 8.9 mg/dL (8.4-10.2); Hemolysis Index 2
--- NOTE | 2018-11-23 12:24 | XRay Report ---
AP CHEST: HISTORY: Recent left thoracentesis, pleural effusion Recent ultrasound-guided left pleural effusion was performed. 1700 cc of bloody fluid was removed. There is near-complete evacuation of the left pleural fluid. No evidence for pneumothorax. IMPRESSION: No evidence for pneumothorax.
[2018-11-23 12:44] LABS: Total Cells Counted 100 /mm3
== END 2018-11-23 13:07 | disposition home or self-care (01) ==
LOC: CATHLABREC 07:24 → EDSTATUS 07:30 → CATHLABREC 13:07
PROVIDERS: ATTEND Internal Medicine
DX: J90 Pleural effusion, not elsewhere classified (principal); J96.10 Chronic respiratory failure, unspecified whether with hypoxia or hypercapnia; E11.9 Type 2 diabetes mellitus without complications; K21.9 Gastro-esophageal reflux disease without esophagitis; D72.829 Elevated white blood cell count, unspecified; I11.0 Hypertensive heart disease with heart failure; I50.9 Heart failure, unspecified; J44.9 Chronic obstructive pulmonary disease, unspecified; F32.9 Major depressive disorder, single episode, unspecified; D64.9 Anemia, unspecified; E66.9 Obesity, unspecified; Z68.39 Body mass index [BMI] 39.0-39.9, adult; Z79.899 Other long term (current) drug therapy; Z79.84 Long term (current) use of oral hypoglycemic drugs; Z79.01 Long term (current) use of anticoagulants; Z90.49 Acquired absence of other specified parts of digestive tract; Z90.710 Acquired absence of both cervix and uterus; Z85.3 Personal history of malignant neoplasm of breast; Z98.890 Other specified postprocedural states; Z88.8 Allergy status to other drugs, medicaments and biological substances
CPT/HCPCS: 32555; 36415; 71045; 80053; 83605; 83615; 84160; 85610; 87116; 88112; 88305; 88341; 88342; 89051

== ENCOUNTER 2018-12-08 16:27 | Inpatient (IN) | payer MEDICARE ==
--- NOTE | 2018-12-08 16:45 | Emergency Department Report ---
ED Shortness of Breath HPI - General Stated Complaint: DIFFICULTY BREATHING Time Seen by Provider: 12/08/18 16:36 - History of Present Illness Initial Comments: Patient is 68 years old female with history of congestive heart failure, hypertension, diabetes and breast cancer. Patient presented to the ER complaining of shortness of breath since yesterday with hypoxia. Patient was sent from our freight tallier office. Patient had thoracocentesis by inte rventional radiologist at 2 weeks ago for left pleural effusion. According to the freight tallier office patient initial oxygen saturation was 68%. Patient was put on nasal cannula 4 L/m and hypoxia and saturation went up to 95%. Patient denied any chest pain, fever, nausea or vomiting. MD Complaint: shortness of breath - Related Data Home Medications Medication Instructions Recorded Confirmed Last Taken Exemestane 25 mg PO DAILY 09/02/16 11/23/18 11/22/18 25mg FLUoxetine [PROzac] 20 mg PO QDAY 05/25/17 11/23/18 11/22/18 20mg amLODIPine [Norvasc] 10 mg PO DAILY 05/25/17 11/23/18 11/22/18 10mg Apixaban [Eliquis] 5 mg PO DAILY 11/23/18 11/23/18 11/20/18 5mg Atenolol [Tenormin] 100 mg PO DAILY 11/23/18 11/23/18 11/22/18 100mg Carvedilol [Coreg] 3.125 mg PO BID 11/23/18 11/23/18 11/22/18 3.125mg Everolimus [Afinitor] 10 mg PO DAILY 11/23/18 11/23/18 11/22/18 10mg Fluticasone [Flonase] 50 mcg INHALATION DAILY 11/23/18 11/23/18 11/22/18 50mcg Furosemide [Lasix] 40 mg PO QDAY 11/23/18 11/23/18 11/22/18 40mg Loratadine [Claritin] 10 mg PO DAILY 11/23/18 11/23/18 11/22/18 10mg Losartan [Cozaar] 25 mg PO DAILY 11/23/18 11/23/18 11/22/18 25mg Metformin HCl [Metformin HCl ER] 1,000 mg PO BID 11/23/18 11/23/18 11/22/18 Potassium Chloride [Klor-Con M10] 10 meq PO DAILY 11/23/18 11/23/18 11/22/18 10meq Umeclidinium Brm/Vilanterol Tr 25 mcg INTRANASAL DAILY 11/23/18 11/23/18 11/22/18 [Anoro Ellipta 62.5-25 Mcg INH] 25mcg oxyCODONE /ACETAMINOPHEN [Percocet 1 tab PO Q8HR PRN 11/23/18 11/23/18 11/22/18 5/325 mg] 1 traZODone [Desyrel] 100 mg PO DAILY 11/23/18 11/23/18 11/22/18 100mg Previous Rx's Medication Instructions Recorded Last Taken Type Omeprazole [PriLOSEC] 20 mg PO QDAY #30 capsule. 02/07/16 11/22/18 Rx 20mg Allergies Allergy/AdvReac Type Severity Reaction Status Date / Time benazepril AdvReac Angioedema Verified 05/25/17 22:24 ED Review of Systems ROS: Stated complaint: DIFFICULTY BREATHING Other details as noted in HPI Comment: All other systems reviewed and negative Constitutional: denies: chills, fever Respiratory: orthopnea, shortness of breath, SOB with exertion, SOB at rest. denies: cough, wheezing Cardiovascular: denies: chest pain, palpitations Gastrointestinal: denies: abdominal pain, nausea, vomiting, diarrhea, constipation, hematemesis, melena, hematochezia Musculoskeletal: denies: back pain Neurological: denies: headache, weakness, numbness, paresthesias ED Past Medical Hx - Past Medical History Hx Hypertension: Yes Hx Heart Attack/AMI: No Hx Congestive Heart Failure: Yes Hx Diabetes: Yes Hx GERD: Yes Hx Liver Disease: No Hx Seizures: No Hx Psychiatric Treatment: Yes (depression) Hx Asthma: Yes Hx COPD: Yes (O2 @ home PRN) Hx HIV: No Additional medical history: Breast Cancer- Received chemo on 03/05/16. anemia. high cholesterol. DVT - Surgical History Hx Appendectomy: Yes Additional Surgical History: Port Placement to right chest. Hyst. Left knee surgery. sinus surgery. tonsillectomy - Social History Smoking Status: Never Smoker - Medications Home Medications: Home Medications Medication Instructions Recorded Confirmed Last Taken Type Omeprazole [PriLOSEC] 20 mg PO QDAY #30 capsule. 02/07/16 11/23/18 11/22/18 Rx 20mg Exemestane 25 mg PO DAILY 09/02/16 11/23/18 11/22/18 History 25mg FLUoxetine [PROzac] 20 mg PO QDAY 05/25/17 11/23/18 11/22/18 History 20mg amLODIPine [Norvasc] 10 mg PO DAILY 05/25/17 11/23/18 11/22/18 History 10mg Apixaban [Eliquis] 5 mg PO DAILY 11/23/18 11/23/18 11/20/18 History 5mg Atenolol [Tenormin] 100 mg PO DAILY 11/23/18 11/23/18 11/22/18 History 100mg Carvedilol [Coreg] 3.125 mg PO BID 11/23/18 11/23/18 11/22/18 History 3.125mg Everolimus [Afinitor] 10 mg PO DAILY 11/23/18 11/23/18 11/22/18 History 10mg Fluticasone [Flonase] 50 mcg INHALATION DAILY 11/23/18 11/23/18 11/22/18 History 50mcg Furosemide [Lasix] 40 mg PO QDAY 11/23/18 11/23/18 11/22/18 History 40mg Loratadine [Claritin] 10 mg PO DAILY 11/23/18 11/23/18 11/22/18 History 10mg Losartan [Cozaar] 25 mg PO DAILY 11/23/18 11/23/18 11/22/18 History 25mg Metformin HCl [Metformin HCl ER] 1,000 mg PO BID 11/23/18 11/23/18 11/22/18 History Potassium Chloride [Klor-Con M10] 10 meq PO DAILY 11/23/18 11/23/18 11/22/18 History 10meq Umeclidinium Brm/Vilanterol Tr 25 mcg INTRANASAL DAILY 11/23/18 11/23/18 11/22/18 History [Anoro Ellipta 62.5-25 Mcg INH] 25mcg oxyCODONE /ACETAMINOPHEN [Percocet 1 tab PO Q8HR PRN 11/23/18 11/23/18 11/22/18 History 5/325 mg] 1 traZODone [Desyrel] 100 mg PO DAILY 11/23/18 11/23/18 11/22/18 History 100mg ED Physical Exam - General General appearance: alert, in distress (moderate respiratory distress) - Head Head exam: Present: atraumatic, normocephalic, normal inspection - Eye Eye exam: Present: normal appearance, PERRL - ENT ENT exam: Present: normal exam, normal orophraynx, mucous membranes moist - Neck Neck exam: Present: normal inspection, full ROM. Absent: tenderness, meningismus, lymphadenopathy, thyromegaly - Respiratory Respiratory exam: Present: respiratory distress (moderate respiratory distress), decreased breath sounds (left lower lobe). Absent: wheezes, rales, rhonchi, stridor, chest wall tenderness, accessory muscle use, prolonged expiratory - Cardiovascular Cardiovascular Exam: Present: regular rate, normal rhythm, normal heart sounds - GI/Abdominal GI/Abdominal exam: Present: soft, normal bowel sounds. Absent: distended, tenderness, guarding, rebound, rigid, mass, bruit, pulsatile mass, hernia - Extremities Exam Extremities exam: Present: normal inspection, full ROM, normal capillary refill - Back Exam Back exam: Present: normal inspection, full ROM. Absent: tenderness, CVA tenderness (R), CVA tenderness (L), muscle spasm, paraspinal tenderness, vertebral tenderness - Neurological Exam Neurological exam: Present: alert, oriented X3, CN II-XII intact - Psychiatric Psychiatric exam: Present: normal mood - Skin Skin exam: Present: warm, intact, normal color ED Course Vital Signs 12/08/18 12/08/18 12/08/18 16:36 16:44 16:45 Temperature 98.4 F 98.4 F Pulse Rate 84 84 Respiratory 16 16 Rate Blood Pressure 103/67 Blood Pressure 103/67 [Right] O2 Sat by Pulse 94 94 94 Oximetry 12/08/18 12/08/18 12/08/18 16:46 17:00 17:16 Temperature Pulse Rate 80 79 80 Respiratory 20 18 22 Rate Blood Pressure 103/67 103/67 103/67 Blood Pressure [Right] O2 Sat by Pulse 95 96 94 Oximetry 12/08/18 12/08/18 12/08/18 17:30 17:48 18:00 Temperature Pulse Rate 76 Respiratory 18 Rate Blood Pressure 103/67 103/67 103/67 Blood Pressure [Right] O2 Sat by Pulse 94 65 L 94 Oximetry - Consultations Consultation #1: 12/08/18 19:31 I discussed the patient is Dr. Saini, he stated that he is familiar with the patient. He agreed with the plan that patient is still have a thoracocentesis tomorrow ultrasound-guided by interventional radiologist. ED Medical Decision Making - Lab Data Result diagrams: 12/08/18 17:03 12/08/18 17:03 - EKG Data -: EKG Interpreted by Me EKG shows normal: sinus rhythm Rate: tachycardia - Radiology Data Radiology results: report reviewed - Medical Decision Making Patient is 68 years old female with history of congestive heart failure, hypertension, diabetes and breast cancer. Patient presented to the ER complaining of shortness of breath since yesterday with hypoxia. Patient was sent from our freight tallier office. Patient had thoracocentesis by interventional radiologist at 2 weeks ago for left pleural effusion. According to the freight tallier office patient initial oxygen saturation was 68%. Patient was put on nasal cannula 4 L/m and hypoxia and saturation went up to 95%. Patient denied any chest pain, fever, nausea or vomiting Patient remained stable in the emergency room on 4 L with an oxygen saturation of 96%. Patient evaluated by me multiple times. Patient stated that she is feeling better. I discussed the patient with DR Maravilla, he agreed to admit the patient to medical service for thoracocentesis in the morning by interventional radiologist. Critical Care Time: Yes Critical care time in (mins) excluding proc time.: 30 Critical care attestation.: If time is entered above; I have spent that time in minutes in the direct care of this critically ill patient, excluding procedure time. ED Disposition Clinical Impression: Difficulty breathing, Pleural effusion on left Disposition: [id number] OP ADMIT IP TO THIS HOSP Is pt being admited?: Yes Condition: Stable
[2018-12-08 17:46] LABS: Hematocrit 34.8 % (30.3-42.9); Hemoglobin 11.4 gm/dl (10.1-14.3); Mean Corpuscular HGB Conc 33 % (30-34); Mean Corpuscular Volume 89 fl (79-97); Platelet Count 381 K/mm3 (140-440); Red Blood Count 3.93 M/mm3 (3.65-5.03)
[2018-12-08 17:47] LABS: Red Cell Distribution Width 26.9 % (13.2-15.2)
--- NOTE | 2018-12-08 17:47 | XRay Report ---
PROCEDURES: XR CHEST 1V AP TECHNIQUE: AP portable view of the chest. HISTORY: Dyspnea COMPARISON: CXR 11/23/2018 FINDINGS: Lines, tubes, and devices: Right subclavian port catheter terminates in the distal superior vena cava Lungs and pleura: Trachea is normal in position. There is a new large left pleural effusion involving the lower two thirds of left hemithorax. Blunting of the right costophrenic angle is reduced. Severa l areas of pleural-based density in the right lateral lung are stable. Cardiomediastinal silhouette: Cardiac and mediastinal silhouettes are slightly shifted to the right d ue to the large pleural effusion. Other: Bony structures are intact. IMPRESSION: Left pleural effusion. Otherwise no change This document is electronically signed by Loretta James MD., December 08 2018 05:45:32 PM ET
[2018-12-08 17:50] LABS: INR 1.12 (0.87-1.13); Partial Thromboplastin Time 21.3 Sec. (24.2-36.6)
[2018-12-08 18:07] LABS: BUN/Creatinine Ratio 18; Blood Urea Nitrogen 18 mg/dL (7-17); Calcium 9.2 mg/dL (8.4-10.2); Hemolysis Index 128
[2018-12-08 18:28] LABS: Basophils % (Manual) 0 % (0.0-1.8); RBC Morphology Normal; Total Cells Counted 100
--- NOTE | 2018-12-08 22:22 | History and Physical Report ---
History of Present Illness Date of examination: 12/08/18 Date of admission: 12/08/18 18:21 Medications and Allergies Allergies Allergy/AdvReac Type Severity Reaction Status Date / Time benazepril AdvReac Angioedema Verified 05/25/17 22:24 Home Medications Medication Instructions Recorded Confirmed Last Taken Type Omeprazole [PriLOSEC] 20 mg PO QDAY #30 capsule. 02/07/16 12/08/18 11/22/18 Rx 20mg amLODIPine [Norvasc] 10 mg PO DAILY 05/25/17 12/08/18 11/22/18 History 10mg Apixaban [Eliquis] 5 mg PO BID 11/23/18 12/08/18 11/20/18 History 5mg Carvedilol [Coreg] 3.125 mg PO BIDWM 11/23/18 12/08/18 11/22/18 History 3.125mg Furosemide [Lasix] 20 mg PO BID 11/23/18 12/08/18 11/22/18 History 40mg Losartan [Cozaar] 25 mg PO DAILY 11/23/18 12/08/18 11/22/18 History 25mg Potassium Chloride [Klor-Con M10] 10 meq PO DAILY 11/23/18 12/08/18 11/22/18 History 10meq Umeclidinium Brm/Vilanterol Tr 1 puff IH DAILY 11/23/18 12/08/18 11/22/18 History [Anoro Ellipta 62.5-25 Mcg INH] 25mcg Fulvestrant (Nf) [Faslodex (Nf) 500 mg IM QMONTH 12/08/18 12/08/18 Unknown History Inj] Metformin HCl [Glucophage] 1,000 mg PO BID 12/08/18 12/08/18 Unknown History Palbociclib [Ibrance] 100 mg PO DAILY 12/08/18 12/08/18 Unknown History Exam - Constitutional Vitals: Temp Pulse Resp BP Pulse Ox 98.4 F 86 20 105/70 94 12/08/18 16:45 12/08/18 19:30 12/08/18 19:30 12/08/18 19:30 12/08/18 19:30 Results - Labs CBC & Chem 7: 12/08/18 17:03 12/08/18 17:03 Labs: Laboratory Last Values WBC 5.9 K/mm3 (4.5-11.0) 12/08/18 17:03 RBC 3.93 M/mm3 (3.65-5.03) 12/08/18 17:03 Hgb 11.4 gm/dl (10.1-14.3) 12/08/18 17:03 Hct 34.8 % (30.3-42.9) 12/08/18 17:03 MCV 89 fl (79-97) 12/08/18 17:03 MCH 29 pg (28-32) 12/08/18 17:03 MCHC 33 % (30-34) 12/08/18 17:03 RDW 26.9 % (13.2-15.2) H 12/08/18 17:03 Plt Count 381 K/mm3 (140-440) 12/08/18 17:03 Lymph % (Auto) Relay Man 12/08/18 17:03 [place] % (Auto) Relay Man 12/08/18 17:03 Eos % (Auto) Relay Man 12/08/18 17:03 Baso % (Auto) Relay Man 12/08/18 17:03 Lymph # Relay Man 12/08/18 17:03 [place] # Relay Man 12/08/18 17:03 Eos # Relay Man 12/08/18 17:03 Baso # Relay Man 12/08/18 17:03 Add Manual Diff Complete 12/08/18 17:03 Total Counted 100 12/08/18 17:03 Seg Neutrophils % Relay Man 12/08/18 17:03 Seg Neuts % (Manual) 70.0 % (40.0-70.0) 12/08/18 17:03 Band Neutrophils % 0 % 12/08/18 17:03 Lymphocytes % (Manual) 19.0 % (13.4-35.0) 12/08/18 17:03 Reactive Lymphs % (Man) 0 % 12/08/18 17:03 Monocytes % (Manual) 7.0 % (0.0-7.3) 12/08/18 17:03 Eosinophils % (Manual) 4.0 % (0.0-4.3) 12/08/18 17:03 Basophils % (Manual) 0 % (0.0-1.8) 12/08/18 17:03 Metamyelocytes % 0 % 12/08/18 17:03 Myelocytes % 0 % 12/08/18 17:03 Promyelocytes % 0 % 12/08/18 17:03 Blast Cells % 0 % 12/08/18 17:03 Nucleated RBC % Not Reportable 12/08/18 17:03 Seg Neutrophils # Relay Man 12/08/18 17:03 Seg Neutrophils # Man 4.1 K/mm3 (1.8-7.7) 12/08/18 17:03 Band Neutrophils # 0.0 K/mm3 12/08/18 17:03 Lymphocytes # (Manual) 1.1 K/mm3 (1.2-5.4) L 12/08/18 17:03 Abs React Lymphs (Man) 0.0 K/mm3 12/08/18 17:03 Monocytes # (Manual) 0.4 K/mm3 (0.0-0.8) 12/08/18 17:03 Eosinophils # (Manual) 0.2 K/mm3 (0.0-0.4) 12/08/18 17:03 Basophils # (Manual) 0.0 K/mm3 (0.0-0.1) 12/08/18 17:03 Metamyelocytes # 0.0 K/mm3 12/08/18 17:03 Myelocytes # 0.0 K/mm3 12/08/18 17:03 Promyelocytes # 0.0 K/mm3 12/08/18 17:03 Blast Cells # 0.0 K/mm3 12/08/18 17:03 WBC Morphology Not Reportable 12/08/18 17:03 Hypersegmented Neuts Not Reportable 12/08/18 17:03 Hyposegmented Neuts Not Reportable 12/08/18 17:03 Hypogranular Neuts Not Reportable 12/08/18 17:03 Smudge Cells Not Reportable 12/08/18 17:03 Toxic Granulation Not Reportable 12/08/18 17:03 Toxic Vacuolation Not Reportable 12/08/18 17:03 Dohle Bodies Not Reportable 12/08/18 17:03 Pelger-Huet Anomaly Not Reportable 12/08/18 17:03 Bonnie Rods Not Reportable 12/08/18 17:03 Platelet Estimate Not Reportable 12/08/18 17:03 Clumped Platelets Not Reportable 12/08/18 17:03 Plt Clumps, EDTA Not Reportable 12/08/18 17:03 Large Platelets Not Reportable 12/08/18 17:03 Giant Platelets Not Reportable 12/08/18 17:03 Platelet Satelliting Not Reportable 12/08/18 17:03 Plt Morphology Comment Not Reportable 12/08/18 17:03 RBC Morphology Normal 12/08/18 17:03 Dimorphic RBCs Not Reportable 12/08/18 17:03 Polychromasia Not Reportable 12/08/18 17:03 Hypochromasia Not Reportable 12/08/18 17:03 Poikilocytosis Not Reportable 12/08/18 17:03 Anisocytosis Not Reportable 12/08/18 17:03 Microcytosis Not Reportable 12/08/18 17:03 Macrocytosis Not Reportable 12/08/18 17:03 Spherocytes Not Reportable 12/08/18 17:03 Pappenheimer Bodies Not Reportable 12/08/18 17:03 Sickle Cells Not Reportable 12/08/18 17:03 Target Cells Not Reportable 12/08/18 17:03 Tear Drop Cells Not Reportable 12/08/18 17:03 Ovalocytes Not Reportable 12/08/18 17:03 Helmet Cells Not Reportable 12/08/18 17:03 Tejeda-Dousman Bodies Not Reportable 12/08/18 17:03 [place] Rings Not Reportable 12/08/18 17:03 Leary Cells Not Reportable 12/08/18 17:03 Bite Cells Not Reportable 12/08/18 17:03 Crenated Cell Not Reportable 12/08/18 17:03 Elliptocytes Not Reportable 12/08/18 17:03 Acanthocytes (Spur) Not Reportable 12/08/18 17:03 Rouleaux Not Reportable 12/08/18 17:03 Hemoglobin C Crystals Not Reportable 12/08/18 17:03 Schistocytes Not Reportable 12/08/18 17:03 Malaria parasites Not Reportable 12/08/18 17:03 Maikel Bodies Not Reportable 12/08/18 17:03 Hem Pathologist Commnt No 12/08/18 17:03 PT 15.1 Sec. (12.2-14.9) H 12/08/18 17:03 INR 1.12 (0.87-1.13) 12/08/18 17:03 APTT 21.3 Sec. (24.2-36.6) L 12/08/18 17:03 Sodium 141 mmol/L (137-145) 12/08/18 17:03 Potassium 4.9 mmol/L (3.6-5.0) 12/08/18 17:03 Chloride 100.7 mmol/L (98-107) 12/08/18 17:03 Carbon Dioxide 27 mmol/L (22-30) 12/08/18 17:03 Anion Gap 18 mmol/L 12/08/18 17:03 BUN 18 mg/dL (7-17) H 12/08/18 17:03 Creatinine 1.0 mg/dL (0.7-1.2) 12/08/18 17:03 Estimated GFR > 60 ml/min 12/08/18 17:03 BUN/Creatinine Ratio 18 % 12/08/18 17:03 Glucose 90 mg/dL (65-100) 12/08/18 17:03 Calcium 9.2 mg/dL (8.4-10.2) 12/08/18 17:03 Troponin T < 0.010 ng/mL (0.00-0.029) 12/08/18 17:03
[2018-12-08] MEDS ORDERED: DILAUDID IV PRN (22:28)
[2018-12-08] MEDS ORDERED: TYLENOL PO PRN (22:28)
[2018-12-08] MEDS ORDERED: ZOFRAN IV PRN (22:28)
[2018-12-08] MEDS ORDERED: SODIUM CHLORIDE FLUSH SYRINGE 10 ML IV PRN (22:28)
[2018-12-08] MEDS ORDERED: K-DUR PO SCH (23:00)
[2018-12-08] MEDS ORDERED: ELIQUIS PO SCH (23:00)
[2018-12-08] MEDS: COREG PO SCH (23:39)
[2018-12-08] MEDS: PEPCID PO SCH (23:44)
[2018-12-08] MEDS: SODIUM CHLORIDE FLUSH SYRINGE 10 ML IV SCH (23:51)
[2018-12-09] MEDS: LASIX IV SCH ×3 (05:43→22:16)
--- NOTE | 2018-12-09 06:45 | Event Note ---
Date: 12/08/18 COPD exaderbation Pleural effusion See H/p in reports
--- NOTE | 2018-12-09 07:57 | History and Physical Report ---
CHIEF COMPLAINT: Increasing shortness of breath since yesterday. HISTORY OF PRESENT ILLNESS: A 68-year-old female with history of congestive heart failure, hypertension, pleural effusion, diabetes, breast cancer, comes in for increasing shortness of breath since yesterday. Also, low oxygen saturations as per the control clerk head, who sent her here. The patient had thoracentesis by Interventional Radiology 2 weeks ago for left pleural effusion. Apparently, oxygen saturations were 68% in the control clerk head's office of Dr. Crowder. The patient is on nasal cannula 4 liters per minute. Saturations went up to 95%. No chest pain. The patient improved with oxygen. PAST MEDICAL HISTORY: Significant for hypertension, congestive heart failure, diabetes, GERD, depression, breast cancer, received chemo in 02/2016, had cholesterol and DVT also. PAST SURGICAL HISTORY: Appendectomy. Port placement of right chest. Left knee surgery. Sinus surgery. Tonsillectomy. SOCIAL HISTORY: Does not smoke. FAMILY HISTORY: Hypertension. CURRENT MEDICATIONS: On the chart including Eliquis 5 mg once a day, amlodipine 10 mg once a day, losartan 25 mg once a day, metformin 1000 mg twice a day and Anoro 25 mcg intranasal daily. REVIEW OF SYSTEMS: As mentioned, increasing shortness of breath and low oxygen saturations in the mid 60s to high 60s. PHYSICAL EXAMINATION: GENERAL: Elderly female, cooperative during examination. VITAL SIGNS: Blood pressure is 104/62, temperature is 98.2, pulse is 68, sats are 100%. HEENT: Unremarkable. Pupils equal and reactive. NECK: Supple, no lymphadenopathy, no thyromegaly. LUNGS: Scattered bilateral rales present. CARDIOVASCULAR: S1, S2 heard. No gallop, no murmur, no rub. Apical impulse in left fifth intercostal space and midclavicular line. ABDOMEN: Soft and benign. No hepatosplenomegaly. No guarding, no rigidity. Hernial orifices are normal. EXTREMITIES: Good pedal pulses. CENTRAL NERVOUS SYSTEM: Alert and oriented x 4. Nonfocal exam. SKIN: Normal. LABORATORY DATA: H and H is 11.4 and 34.8. Electrolytes are normal. BUN is 18. DIAGNOSTIC DATA: Chest x-ray shows left pleural effusion, otherwise no change. Blunting of the right costophrenic angle is reduced. Right subclavian port catheter is present. ASSESSMENT AND PLAN: 1. Acute respiratory failure secondary to congestive heart failure and chronic obstructive pulmonary disease. BNP was not done. We will get an echocardiogram for ejection fraction. IV Lasix for now and thoracentesis and also DuoNebs initiated. 2. Chronic obstructive pulmonary disease exacerbation. DuoNebs, steroids and antibiotics. 3. Type 2 diabetes. Continue metformin and coverage. 4. Hypertension. Continue atenolol and losartan. 5. History of breast cancer with remote. 6. Allergic rhinitis. Continue loratadine. 7. Depression. Continue fluoxetine. 8. Deep venous thrombosis prophylaxis. The patient is on Eliquis. GI prophylaxis continued. 10.L pleural effusion US guided Thoracentesis ordered In summary, the patient has COPD exacerbation, acute respiratory failure and possible CHF exacerbation. BNP ordered. Echocardiogram ordered. Thoracentesis ordered. JOB# [id number] SERA/HANNAH GALARZA
[2018-12-09] MEDS: NORVASC PO SCH (09:10)
[2018-12-09] MEDS: GLUCOPHAGE PO SCH (09:12)
[2018-12-09] MEDS: COREG PO SCH ×2 (09:13→22:11)
[2018-12-09] MEDS: PEPCID PO SCH ×2 (09:13→22:09)
[2018-12-09] MEDS: K-DUR PO SCH (09:13)
[2018-12-09] MEDS: COZAAR PO SCH (09:14)
[2018-12-09] MEDS: PROTONIX PO SCH (09:14)
[2018-12-09] MEDS ORDERED: PALBOCICLIB 100 MG PO SCH (10:00)
[2018-12-09] MEDS ORDERED: VILANTEROL TR IH SCH (10:00)
[2018-12-09] MEDS ORDERED: UMECLIDINIUM BRM IH SCH (10:00)
[2018-12-09] MEDS ORDERED: NON-FORMULARY (Omeprazole [Prilosec] 20 MG) PO SCH (10:00)
--- NOTE | 2018-12-09 10:51 | Consultation ---
History of Present Illness Consult date: 12/09/18 Reason for consult: dyspnea, pleural effusion History of present illness: PULMONARY AND CRITICAL CARE CONSULTATION DR. GONZALEZ THANK YOU FOR ASKING US TO PARTICIPATE IN THE CARE OF THIS PATIENT. Patient is 68 years old female with history of congestive heart failure, hypertension, diabetes and breast cancer. Patient presented to the ER complaining of shortness of breath since yesterday with hypoxia. Patient was sent from our business account manager office. Patient had thoracocentesis by interventional radiologist at 2 weeks ago for left pleural effusion. According to the business account manager office patient initial oxygen saturation was 68%. Patient was put on nasal cannula 4 L/m and hypoxia and saturation went up to 95%. Patient denied any chest pain, fever, nausea or vomiting. Past History Past Medical History: other (Breast cancer, left malignant pleural effusion.) Medications and Allergies Allergies Allergy/AdvReac Type Severity Reaction Status Date / Time benazepril AdvReac Angioedema Verified 12/08/18 22:44 Home Medications Medication Instructions Recorded Confirmed Last Taken Type Omeprazole [PriLOSEC] 20 mg PO QDAY #30 capsule. 02/07/16 12/08/18 11/22/18 Rx 20mg amLODIPine [Norvasc] 10 mg PO DAILY 05/25/17 12/08/18 11/22/18 History 10mg Apixaban [Eliquis] 5 mg PO BID 11/23/18 12/08/18 11/20/18 History 5mg Carvedilol [Coreg] 3.125 mg PO BIDWM 11/23/18 12/08/18 11/22/18 History 3.125mg Furosemide [Lasix] 20 mg PO BID 11/23/18 12/08/18 11/22/18 History 40mg Losartan [Cozaar] 25 mg PO DAILY 11/23/18 12/08/18 11/22/18 History 25mg Potassium Chloride [Klor-Con M10] 10 meq PO DAILY 11/23/18 12/08/18 11/22/18 History 10meq Umeclidinium Brm/Vilanterol Tr 1 puff IH DAILY 11/23/18 12/08/18 11/22/18 History [Anoro Ellipta 62.5-25 Mcg INH] 25mcg Fulvestrant (Nf) [Faslodex (Nf) 500 mg IM QMONTH 12/08/18 12/08/18 Unknown History Inj] Metformin HCl [Glucophage] 1,000 mg PO BID 12/08/18 12/08/18 Unknown History Palbociclib [Ibrance] 100 mg PO DAILY 12/08/18 12/08/18 Unknown History Active Meds: Active Medications Acetaminophen (Tylenol) 650 mg PO Q4H PRN PRN Reason: Pain MILD(1-3)/Fever >100.5/RANDLE Last Admin: 12/08/18 23:46 Dose: 650 mg Documented by: Amlodipine Besylate (Norvasc) 10 mg PO DAILY [facility] Last Admin: 12/09/18 09:10 Dose: 10 mg Documented by: Apixaban (Eliquis) 5 mg PO BID [facility]; Protocol Last Admin: 12/08/18 23:39 Dose: 5 mg Documented by: Carvedilol (Coreg) 3.125 mg PO BID [facility] Last Admin: 12/09/18 09:13 Dose: 3.125 mg Documented by: Famotidine (Pepcid) 20 mg PO BID [facility] Last Admin: 12/09/18 09:13 Dose: 20 mg Documented by: Furosemide (Lasix) 40 mg IV 0600,1800 [facility] Last Admin: 12/09/18 06:11 Dose: Not Given Documented by: Hydromorphone HCl (Dilaudid) 0.5 mg IV Q3H PRN PRN Reason: Pain , Severe (7-10) Losartan Potassium (Cozaar) 25 mg PO DAILY [facility] Last Admin: 12/09/18 09:14 Dose: 25 mg Documented by: Metformin HCl (Glucophage) 1,000 mg PO BIDDIAB [facility] Last Admin: 12/09/18 09:12 Dose: 1,000 mg Documented by: Miscellaneous Medication (Palbociclib [Ibrance]) 100 mg PO DAILY [facility] Miscellaneous Medication (Umeclidinium Brm/Vilanterol Tr [Anoro Ellipta 62.5-25 Mcg Inh]) 1 puff IH DAILY [facility] Ondansetron HCl (Zofran) 4 mg IV Q8H PRN PRN Reason: Nausea And Vomiting Oxycodone/Acetaminophen (Percocet 5/325) 1 tab PO Q6H PRN PRN Reason: Pain, Moderate (4-6) Pantoprazole Sodium (Protonix) 20 mg PO QDAY [facility] Last Admin: 12/09/18 09:14 Dose: 20 mg Documented by: Potassium Chloride (K-Dur) 10 meq PO DAILY [facility] Last Admin: 12/09/18 09:13 Dose: 10 meq Documented by: Potassium Chloride (K-Dur) 20 meq PO Q12H [facility] Last Admin: 12/08/18 23:38 Dose: 20 meq Documented by: Sodium Chloride (Sodium Chloride Flush Syringe 10 Ml) 10 ml IV BID [facility] Last Admin: 12/08/18 23:51 Dose: 10 ml Documented by: Sodium Chloride (Sodium Chloride Flush Syringe 10 Ml) 10 ml IV PRN PRN PRN Reason: LINE FLUSH Review of Systems All systems: negative Physical Examination Vital signs: Vital Signs Pulse Ox 94 12/08/18 16:36 General appearance: appears uncomfortable, other (Shortness of breath.) Eyes: non-icteric ENT: oropharynx moist Neck: supple, no JVD Ascultation: Left: diminished breath sounds Cardiovascular: regular rate and rhythm Gastrointestinal: normoactive bowel sounds, soft, non-tender Integumentary: normal Extremities: no cyanosis, no edema Musculoskeletal: no deformities Gait: poor gait normal mental status, non-focal exam, pupils equal and round, CN II-XII normal mood appropriate Results - Laboratory Findings CBC and BMP: 12/08/18 17:03 12/08/18 17:03 PT/INR, D-dimer PT 15.1 Sec. (12.2-14.9) H 12/08/18 17:03 INR 1.12 (0.87-1.13) 12/08/18 17:03 Abnormal lab findings: Abnormal Labs 12/08/18 12/08/18 12/08/18 17:03 17:03 17:03 RDW 26.9 H Lymphocytes # (Manual) 1.1 L PT 15.1 H APTT 21.3 L BUN 18 H - Diagnostic Findings Chest x-ray: report reviewed (Left pleural effusion.) Assessment and Plan Patient is 68 years old female with history of congestive heart failure, hypertension, diabetes and breast cancer. Patient presented to the ER complaining of shortness of breath since yesterday with hypoxia. Patient was sent from our business account manager office. Patient had thoracocentesis by interventional radiologist at 2 weeks ago for left pleural effusion. According to the business account manager office patient initial oxygen saturation was 68%. Patient was put on nasal cannula 4 L/m and hypoxia and saturation went up to 95%. Patient denied any chest pain, fever, nausea or vomiting. - Patient Problems (1) Acute on chronic respiratory failure with hypoxia Current Visit: Yes Status: Acute (2) Pleural effusion on left Current Visit: Yes Status: Acute (3) Acute deep vein thrombosis (DVT) of right lower extremity Current Visit: No Status: Acute (4) Asthma Current Visit: No Status: Chronic (5) Gastroesophageal reflux disease Current Visit: No Status: Chronic (6) Hypertension Current Visit: No Status: Chronic (7) Type 2 diabetes mellitus Current Visit: No Status: Chronic (8) Metastatic breast cancer Current Visit: Yes Status: Acute
--- NOTE | 2018-12-09 11:42 | Consultation ---
History of Present Illness Consult date: 12/09/18 Consult reason: congestive heart failure History of present illness: Patient is a 68 year old woman who gives a history of hypertension, diabetes, breast cancer and is awaiting initiation of chemotherapy. There is no history of coronary artery disease. Her latest echocardiogram, done in 2015, documents a normal left ventricular systolic function, ejection fraction 50-55%. On yesterday, patient went for a routine visit at her primary care office. She complained of shortness of breath, noted hypoxic with a reported oxygen saturation of 60% and sent to the emergency department for further evaluation. Cardiac consultation requested. Further workup with a chest x-ray reveals left pleural effusion. It would be noted patient had thoracentesis 2 weeks ago for left pleural effusion. ECG is sinus rhythm with low voltage. Past History Past Medical History: other (Breast cancer, left malignant pleural effusion.) Medications and Allergies Allergies Allergy/AdvReac Type Severity Reaction Status Date / Time benazepril AdvReac Angioedema Verified 12/08/18 22:44 Home Medications Medication Instructions Recorded Confirmed Last Taken Type Omeprazole [PriLOSEC] 20 mg PO QDAY #30 capsule. 02/07/16 12/08/18 11/22/18 Rx 20mg amLODIPine [Norvasc] 10 mg PO DAILY 05/25/17 12/08/18 11/22/18 History 10mg Apixaban [Eliquis] 5 mg PO BID 11/23/18 12/08/18 11/20/18 History 5mg Carvedilol [Coreg] 3.125 mg PO BIDWM 11/23/18 12/08/18 11/22/18 History 3.125mg Furosemide [Lasix] 20 mg PO BID 11/23/18 12/08/18 11/22/18 History 40mg Losartan [Cozaar] 25 mg PO DAILY 11/23/18 12/08/18 11/22/18 History 25mg Potassium Chloride [Klor-Con M10] 10 meq PO DAILY 11/23/18 12/08/18 11/22/18 History 10meq Umeclidinium Brm/Vilanterol Tr 1 puff IH DAILY 11/23/18 12/08/18 11/22/18 History [Anoro Ellipta 62.5-25 Mcg INH] 25mcg Fulvestrant (Nf) [Faslodex (Nf) 500 mg IM QMONTH 12/08/18 12/08/18 Unknown History Inj] Metformin HCl [Glucophage] 1,000 mg PO BID 12/08/18 12/08/18 Unknown History Palbociclib [Ibrance] 100 mg PO DAILY 12/08/18 12/08/18 Unknown History Active Meds: Active Medications Acetaminophen (Tylenol) 650 mg PO Q4H PRN PRN Reason: Pain MILD(1-3)/Fever >100.5/RANDLE Last Admin: 12/08/18 23:46 Dose: 650 mg Documented by: Amlodipine Besylate (Norvasc) 10 mg PO DAILY [facility] Last Admin: 12/09/18 09:10 Dose: 10 mg Documented by: Apixaban (Eliquis) 5 mg PO BID [facility]; Protocol Last Admin: 12/08/18 23:39 Dose: 5 mg Documented by: Carvedilol (Coreg) 3.125 mg PO BID [facility] Last Admin: 12/09/18 09:13 Dose: 3.125 mg Documented by: Famotidine (Pepcid) 20 mg PO BID [facility] Last Admin: 12/09/18 09:13 Dose: 20 mg Documented by: Furosemide (Lasix) 40 mg IV 0600,1800 [facility] Last Admin: 12/09/18 06:11 Dose: Not Given Documented by: Hydromorphone HCl (Dilaudid) 0.5 mg IV Q3H PRN PRN Reason: Pain , Severe (7-10) Losartan Potassium (Cozaar) 25 mg PO DAILY [facility] Last Admin: 12/09/18 09:14 Dose: 25 mg Documented by: Metformin HCl (Glucophage) 1,000 mg PO BIDDIAB [facility] Last Admin: 12/09/18 09:12 Dose: 1,000 mg Documented by: Miscellaneous Medication (Palbociclib [Ibrance]) 100 mg PO DAILY [facility] Miscellaneous Medication (Umeclidinium Brm/Vilanterol Tr [Anoro Ellipta 62.5-25 Mcg Inh]) 1 puff IH DAILY [facility] Ondansetron HCl (Zofran) 4 mg IV Q8H PRN PRN Reason: Nausea And Vomiting Oxycodone/Acetaminophen (Percocet 5/325) 1 tab PO Q6H PRN PRN Reason: Pain, Moderate (4-6) Pantoprazole Sodium (Protonix) 20 mg PO QDAY [facility] Last Admin: 12/09/18 09:14 Dose: 20 mg Documented by: Potassium Chloride (K-Dur) 10 meq PO DAILY [facility] Last Admin: 12/09/18 09:13 Dose: 10 meq Documented by: Sodium Chloride (Sodium Chloride Flush Syringe 10 Ml) 10 ml IV BID [facility] Last Admin: 12/08/18 23:51 Dose: 10 ml Documented by: Sodium Chloride (Sodium Chloride Flush Syringe 10 Ml) 10 ml IV PRN PRN PRN Reason: LINE FLUSH Physical Examination Vital Signs Pulse Ox 94 12/08/18 16:36 General appearance: no acute distress HEENT: Positive: PERRL Neck: Positive: trachea midline Cardiac: Positive: Reg Rate and Rhythm Lungs: Positive: Decreased Breath Sounds Neuro: Positive: Grossly Intact Extremities: Absent: edema Results 12/08/18 17:03 12/08/18 17:03 Coagulation 12/08/18 Range/Units 17:03 PT 15.1 H (12.2-14.9) Sec. INR 1.12 (0.87-1.13) APTT 21.3 L (24.2-36.6) Sec. CBC 12/08/18 Range/Units 17:03 WBC 5.9 (4.5-11.0) K/mm3 RBC 3.93 (3.65-5.03) M/mm3 Hgb 11.4 (10.1-14.3) gm/dl Hct 34.8 (30.3-42.9) % Plt Count 381 (140-440) K/mm3 Lymph # [employer]oli[employer] [place] # [employer] Eos # [employer] Baso # [employer] Comprehensive Metabolic Panel 12/08/18 Range/Units 17:03 Sodium 141 (137-145) mmol/L Potassium 4.9 (3.6-5.0) mmol/L Chloride 100.7 (98-107) mmol/L Carbon Dioxide 27 (22-30) mmol/L BUN 18 H (7-17) mg/dL Creatinine 1.0 (0.7-1.2) mg/dL Glucose 90 (65-100) mg/dL Calcium 9.2 (8.4-10.2) mg/dL Assessment and Plan Acute hypoxic respiratory failure Recurrent Left Pleural effusion Hypertension Diabetes Breast Cancer awaits chemotherapy per pt. EF 50-55% by echo 01/2016.
--- NOTE | 2018-12-09 18:51 | Progress Note ---
Assessment and Plan Assessment and plan: Acute respiratory failure due to malignant pleural effusion Admitted to Telemetry Supplemental oxygen Pulm consulted Malignant pleural effusion, large. For thoracentesis tomorrow. she last had thoracentesis just 2 weeks ago on 11/23/18 Eliquis put on hold Breast cancer with metastases. Oncology following as outpatient COPD Chronic diastolic CHF Hypertension monitor BP Diabetes mellitus type 2 fingerstick qac and hs Full code status History Interval history: Shortness of breath History of malignant pleural effusion Hospitalist Physical - Physical exam Narrative exam: GEN: Not in acute distress, lying in bed HEENT: Normocephalic, atraumatic, Neck: supple, No JVD Lungs: Decreased breath sounds on left lung field, no crackles, no wheeze Abd:soft, non tender, non distended, normal bowel sounds Ext: Trace bilat edema, no clubbing, no cyanosis Neuro:Awake,alert,oriented X 3, no focal signs Skin:No rash Psych: Depressed - Constitutional Vitals: Temp Pulse Resp BP Pulse Ox 97.7 F 78 20 126/75 91 12/09/18 17:33 12/09/18 17:32 12/09/18 17:32 12/09/18 17:32 12/09/18 17:32 General appearance: Present: no acute distress Results - Labs CBC & Chem 7: 12/08/18 17:03 12/10/18 13:17 Labs: Laboratory Last Values WBC 5.9 K/mm3 (4.5-11.0) 12/08/18 17:03 RBC 3.93 M/mm3 (3.65-5.03) 12/08/18 17:03 Hgb 11.4 gm/dl (10.1-14.3) 12/08/18 17:03 Hct 34.8 % (30.3-42.9) 12/08/18 17:03 MCV 89 fl (79-97) 12/08/18 17:03 MCH 29 pg (28-32) 12/08/18 17:03 MCHC 33 % (30-34) 12/08/18 17:03 RDW 26.9 % (13.2-15.2) H 12/08/18 17:03 Plt Count 381 K/mm3 (140-440) 12/08/18 17:03 Lymph % (Auto) State Attorney 12/08/18 17:03 [place] % (Auto) State Attorney 12/08/18 17:03 Eos % (Auto) State Attorney 12/08/18 17:03 Baso % (Auto) State Attorney 12/08/18 17:03 Lymph # State Attorney 12/08/18 17:03 [place] # State Attorney 12/08/18 17:03 Eos # State Attorney 12/08/18 17:03 Baso # State Attorney 12/08/18 17:03 Add Manual Diff Complete 12/08/18 17:03 Total Counted 100 12/08/18 17:03 Seg Neutrophils % State Attorney 12/08/18 17:03 Seg Neuts % (Manual) 70.0 % (40.0-70.0) 12/08/18 17:03 Band Neutrophils % 0 % 12/08/18 17:03 Lymphocytes % (Manual) 19.0 % (13.4-35.0) 12/08/18 17:03 Reactive Lymphs % (Man) 0 % 12/08/18 17:03 Monocytes % (Manual) 7.0 % (0.0-7.3) 12/08/18 17:03 Eosinophils % (Manual) 4.0 % (0.0-4.3) 12/08/18 17:03 Basophils % (Manual) 0 % (0.0-1.8) 12/08/18 17:03 Metamyelocytes % 0 % 12/08/18 17:03 Myelocytes % 0 % 12/08/18 17:03 Promyelocytes % 0 % 12/08/18 17:03 Blast Cells % 0 % 12/08/18 17:03 Nucleated RBC % Not Reportable 12/08/18 17:03 Seg Neutrophils # State Attorney 12/08/18 17:03 Seg Neutrophils # Man 4.1 K/mm3 (1.8-7.7) 12/08/18 17:03 Band Neutrophils # 0.0 K/mm3 12/08/18 17:03 Lymphocytes # (Manual) 1.1 K/mm3 (1.2-5.4) L 12/08/18 17:03 Abs React Lymphs (Man) 0.0 K/mm3 12/08/18 17:03 Monocytes # (Manual) 0.4 K/mm3 (0.0-0.8) 12/08/18 17:03 Eosinophils # (Manual) 0.2 K/mm3 (0.0-0.4) 12/08/18 17:03 Basophils # (Manual) 0.0 K/mm3 (0.0-0.1) 12/08/18 17:03 Metamyelocytes # 0.0 K/mm3 12/08/18 17:03 Myelocytes # 0.0 K/mm3 12/08/18 17:03 Promyelocytes # 0.0 K/mm3 12/08/18 17:03 Blast Cells # 0.0 K/mm3 12/08/18 17:03 WBC Morphology Not Reportable 12/08/18 17:03 Hypersegmented Neuts Not Reportable 12/08/18 17:03 Hyposegmented Neuts Not Reportable 12/08/18 17:03 Hypogranular Neuts Not Reportable 12/08/18 17:03 Smudge Cells Not Reportable 12/08/18 17:03 Toxic Granulation Not Reportable 12/08/18 17:03 Toxic Vacuolation Not Reportable 12/08/18 17:03 Dohle Bodies Not Reportable 12/08/18 17:03 Pelger-Huet Anomaly Not Reportable 12/08/18 17:03 Bonnie Rods Not Reportable 12/08/18 17:03 Platelet Estimate Not Reportable 12/08/18 17:03 Clumped Platelets Not Reportable 12/08/18 17:03 Plt Clumps, EDTA Not Reportable 12/08/18 17:03 Large Platelets Not Reportable 12/08/18 17:03 Giant Platelets Not Reportable 12/08/18 17:03 Platelet Satelliting Not Reportable 12/08/18 17:03 Plt Morphology Comment Not Reportable 12/08/18 17:03 RBC Morphology Normal 12/08/18 17:03 Dimorphic RBCs Not Reportable 12/08/18 17:03 Polychromasia Not Reportable 12/08/18 17:03 Hypochromasia Not Reportable 12/08/18 17:03 Poikilocytosis Not Reportable 12/08/18 17:03 Anisocytosis Not Reportable 12/08/18 17:03 Microcytosis Not Reportable 12/08/18 17:03 Macrocytosis Not Reportable 12/08/18 17:03 Spherocytes Not Reportable 12/08/18 17:03 Pappenheimer Bodies Not Reportable 12/08/18 17:03 Sickle Cells Not Reportable 12/08/18 17:03 Target Cells Not Reportable 12/08/18 17:03 Tear Drop Cells Not Reportable 12/08/18 17:03 Ovalocytes Not Reportable 12/08/18 17:03 Helmet Cells Not Reportable 12/08/18 17:03 Tejeda-Muse Bodies Not Reportable 12/08/18 17:03 [place] Rings Not Reportable 12/08/18 17:03 Svetlana Cells Not Reportable 12/08/18 17:03 Bite Cells Not Reportable 12/08/18 17:03 Crenated Cell Not Reportable 12/08/18 17:03 Elliptocytes Not Reportable 12/08/18 17:03 Acanthocytes (Spur) Not Reportable 12/08/18 17:03 Rouleaux Not Reportable 12/08/18 17:03 Hemoglobin C Crystals Not Reportable 12/08/18 17:03 Schistocytes Not Reportable 12/08/18 17:03 Malaria parasites Not Reportable 12/08/18 17:03 Maikel Bodies Not Reportable 12/08/18 17:03 Hem Pathologist Commnt No 12/08/18 17:03 PT 15.1 Sec. (12.2-14.9) H 12/08/18 17:03 INR 1.12 (0.87-1.13) 12/08/18 17:03 APTT 21.3 Sec. (24.2-36.6) L 12/08/18 17:03 Sodium 141 mmol/L (137-145) 12/08/18 17:03 Potassium 4.9 mmol/L (3.6-5.0) 12/08/18 17:03 Chloride 100.7 mmol/L (98-107) 12/08/18 17:03 Carbon Dioxide 27 mmol/L (22-30) 12/08/18 17:03 Anion Gap 18 mmol/L 12/08/18 17:03 BUN 18 mg/dL (7-17) H 12/08/18 17:03 Creatinine 1.0 mg/dL (0.7-1.2) 12/08/18 17:03 Estimated GFR > 60 ml/min 12/08/18 17:03 BUN/Creatinine Ratio 18 % 12/08/18 17:03 Glucose 90 mg/dL (65-100) 12/08/18 17:03 Hemoglobin A1c 5.2 % (4-6) 12/08/18 22:57 Calcium 9.2 mg/dL (8.4-10.2) 12/08/18 17:03 Troponin T < 0.010 ng/mL (0.00-0.029) 12/08/18 17:03
[2018-12-09 20:52] LABS: Bilirubin,Urine NEG (Negative); Blood,Urine NEG (Negative); Color,Urine Yellow (Yellow); Mucus,Urine FEW /HPF; Protein,Urine <15 mg/dL mg/dL (Negative); RBC,Urine < 1.0 /HPF (0.0-6.0)
[2018-12-09] MEDS: SODIUM CHLORIDE FLUSH SYRINGE 10 ML IV SCH (22:12)
[2018-12-09] MEDS: HEPARIN SUB-Q SCH (22:12)
[2018-12-10] MEDS: HEPARIN SUB-Q SCH ×4 (05:16→21:38)
[2018-12-10] MEDS: LASIX IV SCH ×2 (05:19→19:53)
[2018-12-10] MEDS: PERCOCET 5/325 PO PRN ×3 (08:00→21:38)
--- NOTE | 2018-12-10 09:40 | Progress Note ---
Assessment and Plan Acute hypoxemic respiratory failure Recurrent malignant pleural effusion Shortness of breath and hypoxemia due to malignant pleural effusion History of DVT on Eliquis therapy h/o Breast cancer -Continue supplemental oxygen to keep O2 sats>90% -Diagnostic and therapeutic thoracentesis -Anticoagulation on hold for procedure -If she continues to have recurrent accumulation of the pleural fluid, she will benefit from an indwelling pleural drain for periodic drainage -continue all chronic medications -Continue al other care per other attendings and independent beauty consultant Subjective Date of service: 12/10/18 Interval history: Follow up for: acute hypoxemia, dyspnea; recurrent left malignant pleural effusion; RLext DVT No acute overnight events reported, no fevers or chills, no nausea or vomiting. For thoracentesis, diagnostic and therapeutic today Objective Vital Signs - 12hr 12/09/18 12/09/18 12/09/18 22:00 22:11 23:46 Temperature 98.3 F Pulse Rate 80 81 73 Respiratory 20 Rate Blood Pressure 131/76 122/70 O2 Sat by Pulse 92 Oximetry 12/10/18 12/10/18 12/10/18 04:20 06:39 09:21 Temperature 98.1 F Pulse Rate 73 82 Respiratory 22 18 Rate Blood Pressure 121/85 O2 Sat by Pulse 81 L Oximetry Constitutional: appears uncomfortable, other (Shortness of breath.) Eyes: non-icteric ENT: oropharynx moist Neck: supple, no JVD Ascultation: Left: diminished breath sounds Cardiovascular: regular rate and rhythm Gastrointestinal: normoactive bowel sounds, soft, non-tender Integumentary: normal Extremities: no cyanosis, no edema Neurologic: normal mental status, non-focal exam, pupils equal and round, CN II- XII normal Psychiatric: mood appropriate CBC and BMP: 12/08/18 17:03 12/10/18 13:17 ABG, PT/INR, D-dimer: PT/INR, D-dimer PT 15.1 Sec. (12.2-14.9) H 12/08/18 17:03 INR 1.12 (0.87-1.13) 12/08/18 17:03 Abnormal lab findings: Abnormal Labs 12/08/18 12/08/18 12/08/18 17:03 17:03 17:03 RDW 26.9 H Lymphocytes # (Manual) 1.1 L PT 15.1 H APTT 21.3 L BUN 18 H
[2018-12-10] MEDS ORDERED: BENADRYL IV PRN (10:27)
--- NOTE | 2018-12-10 11:40 | Ultrasound Report ---
ULTRASOUND THORACENTESIS History: Left pleural effusion. Description of procedure: Informed consent was obtained. Sterile technique was utilized. 1% lidocaine for skin anesthesia. Using ultrasound guidance, a 5 [place] centesis needle was advanced into the left pleural space. Spontaneous return of bloody fluid was noted. 2.1 L of fluid was aspirated. 120 cc of fluid was sent to the lab for analysis. No complications. Impression: Successful ultrasound-guided left thoracentesis.
--- NOTE | 2018-12-10 11:55 | Progress Note ---
Assessment and Plan Acute hypoxic respiratory failure Recurrent Left Pleural effusion s/p thoracentesis Hypertension Diabetes Metastatic Breast Cancer Hx of DVT on eliquis as an outpatient Echocardiogram this admission reports a normal systolic function, EF 55-60%. Conservative cardiac management. Subjective Date of service: 12/10/18 Interval history: Awaits thoracentesis. Complains of nausea. Objective Vital Signs Temp Pulse Resp BP Pulse Ox 12/10/18 09:21 18 12/10/18 06:39 98.1 F 82 22 121/85 81 L 12/10/18 04:20 73 12/09/18 23:46 98.3 F 73 20 122/70 92 12/09/18 22:11 81 131/76 12/09/18 22:00 80 12/09/18 21:23 98.3 F 84 20 131/76 88 12/09/18 17:33 97.7 F 12/09/18 17:32 78 20 126/75 91 - Physical Examination General: No Apparent Distress HEENT: Positive: PERRL Neck: Positive: trachea midline Cardiac: Positive: Reg Rate and Rhythm Lungs: Positive: Decreased Breath Sounds Neuro: Positive: Grossly Intact Extremities: Absent: edema
[2018-12-10] MEDS: SODIUM CHLORIDE FLUSH SYRINGE 10 ML IV SCH ×3 (12:00→23:35)
[2018-12-10 14:15] LABS: Total Cells Counted 100 /mm3
[2018-12-10 14:30] LABS: Calcium 9.6 mg/dL (8.4-10.2)
[2018-12-10] MEDS: GLUCOPHAGE PO SCH ×3 (15:41→16:06)
--- NOTE | 2018-12-10 15:45 | Procedure Note ---
Date of procedure: 12/10/18 Pre-op diagnosis: left pleural effusion Post-op diagnosis: other (left hemothorax) Procedure: US thoracentesis Findings: large left pleural collection Anesthesia: local Surgeon: RENE PATHAK Estimated blood loss: none Pathology: list (120cc) Specimen disposition: to lab Condition: stable Disposition: floor
[2018-12-10] MEDS: NORVASC PO SCH (16:07)
[2018-12-10] MEDS: COZAAR PO SCH (16:10)
[2018-12-10] MEDS: COREG PO SCH ×2 (16:12→21:38)
[2018-12-10] MEDS: K-DUR PO SCH (16:23)
[2018-12-10] MEDS: PROTONIX PO SCH (16:27)
--- NOTE | 2018-12-10 17:33 | Progress Note ---
Assessment and Plan Assessment and plan: Acute respiratory failure due to malignant pleural effusion Admitted to Telemetry Supplemental oxygen Pulmonology following Malignant left pleural effusion, large. s/p thoracentesis today 2100ml removed, she last had thoracentesis just 2 weeks ago on 11/23/18 Eliquis put on hold Breast cancer with metastases. Consulted Dr. Palacios,Oncology, he was following as outpatient COPD,stable Hypertension monitor BP Diabetes mellitus type 2 fingerstick qac and hs Full code status History Interval history: Shortness of breath improved after thoracentesis today History of malignant pleural effusion Hospitalist Physical - Physical exam Narrative exam: GEN: Not in acute distress, lying in bed HEENT: Normocephalic, atraumatic, Neck: supple, No JVD Lungs: Decreased breath sounds on left lung field, no crackles, no wheeze Abd:soft, non tender, non distended, normal bowel sounds Ext: Trace bilat edema, no clubbing, no cyanosis Neuro:Awake,alert,oriented X 3, no focal signs Skin:No rash Psych: Depressed - Constitutional Vitals: Temp Pulse Resp BP Pulse Ox 98.1 F 68 18 122/68 81 L 12/10/18 06:39 12/10/18 16:12 12/10/18 09:21 12/10/18 16:10 12/10/18 06:39 Results - Labs CBC & Chem 7: 12/08/18 17:03 12/10/18 13:17 Labs: Laboratory Last Values WBC 5.9 K/mm3 (4.5-11.0) 12/08/18 17:03 RBC 3.93 M/mm3 (3.65-5.03) 12/08/18 17:03 Hgb 11.4 gm/dl (10.1-14.3) 12/08/18 17:03 Hct 34.8 % (30.3-42.9) 12/08/18 17:03 MCV 89 fl (79-97) 12/08/18 17:03 MCH 29 pg (28-32) 12/08/18 17:03 MCHC 33 % (30-34) 12/08/18 17:03 RDW 26.9 % (13.2-15.2) H 12/08/18 17:03 Plt Count 381 K/mm3 (140-440) 12/08/18 17:03 Lymph % (Auto) Acetylene Gas Compressor 12/08/18 17:03 [place] % (Auto) Acetylene Gas Compressor 12/08/18 17:03 Eos % (Auto) Acetylene Gas Compressor 12/08/18 17:03 Baso % (Auto) Acetylene Gas Compressor 12/08/18 17:03 Lymph # Acetylene Gas Compressor 12/08/18 17:03 [place] # Acetylene Gas Compressor 12/08/18 17:03 Eos # Acetylene Gas Compressor 12/08/18 17:03 Baso # Acetylene Gas Compressor 12/08/18 17:03 Add Manual Diff Complete 12/08/18 17:03 Total Counted 100 12/08/18 17:03 Seg Neutrophils % Acetylene Gas Compressor 12/08/18 17:03 Seg Neuts % (Manual) 70.0 % (40.0-70.0) 12/08/18 17:03 Band Neutrophils % 0 % 12/08/18 17:03 Lymphocytes % (Manual) 19.0 % (13.4-35.0) 12/08/18 17:03 Reactive Lymphs % (Man) 0 % 12/08/18 17:03 Monocytes % (Manual) 7.0 % (0.0-7.3) 12/08/18 17:03 Eosinophils % (Manual) 4.0 % (0.0-4.3) 12/08/18 17:03 Basophils % (Manual) 0 % (0.0-1.8) 12/08/18 17:03 Metamyelocytes % 0 % 12/08/18 17:03 Myelocytes % 0 % 12/08/18 17:03 Promyelocytes % 0 % 12/08/18 17:03 Blast Cells % 0 % 12/08/18 17:03 Nucleated RBC % Not Reportable 12/08/18 17:03 Seg Neutrophils # Acetylene Gas Compressor 12/08/18 17:03 Seg Neutrophils # Man 4.1 K/mm3 (1.8-7.7) 12/08/18 17:03 Band Neutrophils # 0.0 K/mm3 12/08/18 17:03 Lymphocytes # (Manual) 1.1 K/mm3 (1.2-5.4) L 12/08/18 17:03 Abs React Lymphs (Man) 0.0 K/mm3 12/08/18 17:03 Monocytes # (Manual) 0.4 K/mm3 (0.0-0.8) 12/08/18 17:03 Eosinophils # (Manual) 0.2 K/mm3 (0.0-0.4) 12/08/18 17:03 Basophils # (Manual) 0.0 K/mm3 (0.0-0.1) 12/08/18 17:03 Metamyelocytes # 0.0 K/mm3 12/08/18 17:03 Myelocytes # 0.0 K/mm3 12/08/18 17:03 Promyelocytes # 0.0 K/mm3 12/08/18 17:03 Blast Cells # 0.0 K/mm3 12/08/18 17:03 WBC Morphology Not Reportable 12/08/18 17:03 Hypersegmented Neuts Not Reportable 12/08/18 17:03 Hyposegmented Neuts Not Reportable 12/08/18 17:03 Hypogranular Neuts Not Reportable 12/08/18 17:03 Smudge Cells Not Reportable 12/08/18 17:03 Toxic Granulation Not Reportable 12/08/18 17:03 Toxic Vacuolation Not Reportable 12/08/18 17:03 Dohle Bodies Not Reportable 12/08/18 17:03 Pelger-Huet Anomaly Not Reportable 12/08/18 17:03 Bonnie Rods Not Reportable 12/08/18 17:03 Platelet Estimate Not Reportable 12/08/18 17:03 Clumped Platelets Not Reportable 12/08/18 17:03 Plt Clumps, EDTA Not Reportable 12/08/18 17:03 Large Platelets Not Reportable 12/08/18 17:03 Giant Platelets Not Reportable 12/08/18 17:03 Platelet Satelliting Not Reportable 12/08/18 17:03 Plt Morphology Comment Not Reportable 12/08/18 17:03 RBC Morphology Normal 12/08/18 17:03 Dimorphic RBCs Not Reportable 12/08/18 17:03 Polychromasia Not Reportable 12/08/18 17:03 Hypochromasia Not Reportable 12/08/18 17:03 Poikilocytosis Not Reportable 12/08/18 17:03 Anisocytosis Not Reportable 12/08/18 17:03 Microcytosis Not Reportable 12/08/18 17:03 Macrocytosis Not Reportable 12/08/18 17:03 Spherocytes Not Reportable 12/08/18 17:03 Pappenheimer Bodies Not Reportable 12/08/18 17:03 Sickle Cells Not Reportable 12/08/18 17:03 Target Cells Not Reportable 12/08/18 17:03 Tear Drop Cells Not Reportable 12/08/18 17:03 Ovalocytes Not Reportable 12/08/18 17:03 Helmet Cells Not Reportable 12/08/18 17:03 [place] Bodies Not Reportable 12/08/18 17:03 [place] Rings Not Reportable 12/08/18 17:03 [place] Cells Not Reportable 12/08/18 17:03 Bite Cells Not Reportable 12/08/18 17:03 Crenated Cell Not Reportable 12/08/18 17:03 Elliptocytes Not Reportable 12/08/18 17:03 Acanthocytes (Spur) Not Reportable 12/08/18 17:03 Rouleaux Not Reportable 12/08/18 17:03 Hemoglobin C Crystals Not Reportable 12/08/18 17:03 Schistocytes Not Reportable 12/08/18 17:03 Malaria parasites Not Reportable 12/08/18 17:03 Maikel Bodies Not Reportable 12/08/18 17:03 Hem Pathologist Commnt No 12/08/18 17:03 PT 15.1 Sec. (12.2-14.9) H 12/08/18 17:03 INR 1.12 (0.87-1.13) 12/08/18 17:03 APTT 21.3 Sec. (24.2-36.6) L 12/08/18 17:03 Sodium 146 mmol/L (137-145) H 12/10/18 13:17 Potassium 4.5 mmol/L (3.6-5.0) 12/10/18 13:17 Chloride 100.8 mmol/L (98-107) 12/10/18 13:17 Carbon Dioxide 28 mmol/L (22-30) 12/10/18 13:17 Anion Gap 22 mmol/L 12/10/18 13:17 BUN 20 mg/dL (7-17) H 12/10/18 13:17 Creatinine 1.1 mg/dL (0.7-1.2) 12/10/18 13:17 Estimated GFR 60 ml/min 12/10/18 13:17 BUN/Creatinine Ratio 18 % 12/10/18 13:17 Glucose 111 mg/dL (65-100) H 12/10/18 13:17 POC Glucose 165 (70-105) H 12/10/18 10:44 Hemoglobin A1c 5.2 % (4-6) 12/08/18 22:57 Calcium 9.6 mg/dL (8.4-10.2) 12/10/18 13:17 Troponin T < 0.010 ng/mL (0.00-0.029) 12/08/18 17:03 Urine Color Yellow (Yellow) 12/09/18 16:37 Urine Turbidity Clear (Clear) 12/09/18 16:37 Urine pH 5.0 (5.0-7.0) 12/09/18 16:37 Ur Specific [place] 1.025 (1.003-1.030) 12/09/18 16:37 Urine Protein <15 mg/dl mg/dL (Negative) 12/09/18 16:37 Urine Glucose (UA) Neg mg/dL (Negative) 12/09/18 16:37 Urine Ketones Neg mg/dL (Negative) 12/09/18 16:37 Urine Blood Neg (Negative) 12/09/18 16:37 Urine Nitrite Neg (Negative) 12/09/18 16:37 Urine Bilirubin Neg (Negative) 12/09/18 16:37 Urine Urobilinogen 4.0 mg/dL (<2.0) 12/09/18 16:37 Ur Leukocyte Esterase Sm (Negative) 12/09/18 16:37 Urine WBC (Auto) 3.0 /HPF (0.0-6.0) 12/09/18 16:37 Urine RBC (Auto) < 1.0 /HPF (0.0-6.0) 12/09/18 16:37 U Epithel Cells (Auto) 1.0 /HPF (0-13.0) 12/09/18 16:37 Urine Mucus Few /HPF 12/09/18 16:37 Fluid Type Pleural 12/10/18 11:10 Fluid Color Bloody 12/10/18 11:10 Fluid Appearance Bloody 12/10/18 11:10 Fluid WBC 880 /mm3 12/10/18 11:10 Fluid RBC 44595 /mm3 12/10/18 11:10 Fluid Seg Neutrophils 2.0 % 12/10/18 11:10 Fluid Lymphocytes 8.0 % 12/10/18 11:10 Fluid Reactive Lymphs 0 % 12/10/18 11:10 Fluid Monocytes 87.0 % 12/10/18 11:10 Fluid Eosinophils 3.0 % 12/10/18 11:10 Fluid Basophils 0 % 12/10/18 11:10
--- NOTE | 2018-12-10 17:42 | XRay Report ---
PROCEDURE: XR CHEST 1V AP TECHNIQUE: Single view chest HISTORY: sob, recent left thora COMPARISONS: Chest x-ray December 08, 2018 FINDINGS: Near complete resolution left effusion status post thoracentesis. No pneumothorax. Small residual lef t effusion. Generalized interstitial prominence. Right port stable. Cardiomegaly stable. Trachea midl ine. IMPRESSION: Near complete resolution left effusion. No left pneumothorax. This document is electronically signed by Bruno Tran MD., December 10 2018 05:39:54 PM ET
[2018-12-11] MEDS: PEPCID PO SCH (00:53)
[2018-12-11] MEDS: PERCOCET 5/325 PO PRN (04:22)
[2018-12-11] MEDS: HEPARIN SUB-Q SCH ×2 (04:22→05:14)
[2018-12-11] MEDS: LASIX IV SCH (05:45)
--- NOTE | 2018-12-11 09:31 | Progress Note ---
Assessment and Plan Recurrent malignant pleural effusion s/p multiple thoracentesis including this admission Shortness of breath and hypoxemia due to malignant pleural effusion Echo this admission showing normal LVEF with normal left sided filling pressures ECG showing no interval changes Troponin negative x 1 Metastatic breast cancer History of DVT on eliquis therapy Paroxysmal atrial tachycardia on tele Recommendations: Resume eliquis therapy and start diltiazem po for PAT with holding parameters Change IV lasix to po 20 mg daily May go home cardiac francis Subjective Date of service: 12/11/18 Principal diagnosis: SOB Interval history: Patient is feeling much better after thoracentesis Patient is ready to go home Objective Vital Signs Temp Pulse Resp BP Pulse Ox 12/11/18 04:18 98.2 F 63 20 94/61 98 12/11/18 04:00 63 12/10/18 23:40 98.4 F 63 18 91/58 95 12/10/18 22:00 18 12/10/18 21:35 97.2 F L 66 20 101/67 97 12/10/18 18:11 98.0 F 64 16 100/66 97 12/10/18 16:12 68 12/10/18 16:10 68 122/68 12/10/18 16:07 68 122/68 12/10/18 13:26 97.3 F L 64 16 126/66 98 12/10/18 12:00 77 - Physical Examination General: No Apparent Distress HEENT: Positive: PERRL Neck: Positive: trachea midline Cardiac: Positive: Reg Rate and Rhythm Lungs: Positive: Decreased Breath Sounds Neuro: Positive: Grossly Intact Extremities: Absent: edema - Labs and Meds Comprehensive Metabolic Panel 12/10/18 Range/Units 13:17 Sodium 146 H (137-145) mmol/L Potassium 4.5 (3.6-5.0) mmol/L Chloride 100.8 (98-107) mmol/L Carbon Dioxide 28 (22-30) mmol/L BUN 20 H (7-17) mg/dL Creatinine 1.1 (0.7-1.2) mg/dL Glucose 111 H (65-100) mg/dL Calcium 9.6 (8.4-10.2) mg/dL
--- NOTE | 2018-12-11 10:31 | Progress Note ---
Assessment and Plan Acute hypoxemic respiratory failure Recurrent malignant pleural effusion Shortness of breath and hypoxemia due to malignant pleural effusion History of DVT on Eliquis therapy h/o Breast cancer -Continue supplemental oxygen to keep O2 sats>90% -s/p Diagnostic and therapeutic thoracentesis, folllow up on pleural fluid analysis report - Resume anticoagulation on hold for procedure -If she continues to have recurrent accumulation of the pleural fluid, she will benefit from an indwelling pleural drain for periodic drainage -continue all chronic medications -Continue al other care per other attendings and animal nutrition consultant -Discharge planning Subjective Date of service: 12/11/18 Principal diagnosis: SOB Interval history: Follow up for: acute hypoxemia, dyspnea; recurrent left malignant pleural effusion; RLext DVT No acute overnight events reported, no fevers or chills, no nausea or vomiting. s/ thoracentesis, diagnostic and therapeutic today. Feels much better. daughter is at the bedside Objective Vital Signs - 12hr 12/10/18 12/11/18 12/11/18 23:40 04:00 04:18 Temperature 98.4 F 98.2 F Pulse Rate 63 63 63 Respiratory 18 20 Rate Blood Pressure 91/58 94/61 O2 Sat by Pulse 95 98 Oximetry 12/11/18 09:50 Temperature 98.0 F Pulse Rate 66 Respiratory 20 Rate Blood Pressure 94/56 O2 Sat by Pulse 98 Oximetry Constitutional: no acute distress, alert Eyes: non-icteric ENT: oropharynx moist Neck: supple, no JVD Ascultation: Left: diminished breath sounds Cardiovascular: regular rate and rhythm Gastrointestinal: normoactive bowel sounds, soft, non-tender Integumentary: normal Extremities: no cyanosis, no edema Neurologic: normal mental status, non-focal exam, pupils equal and round, CN II- XII normal Psychiatric: mood appropriate CBC and BMP: 12/08/18 17:03 12/10/18 13:17 ABG, PT/INR, D-dimer: PT/INR, D-dimer PT 15.1 Sec. (12.2-14.9) H 12/08/18 17:03 INR 1.12 (0.87-1.13) 12/08/18 17:03 Abnormal lab findings: Abnormal Labs 12/08/18 12/08/18 12/08/18 17:03 17:03 17:03 RDW 26.9 H Lymphocytes # (Manual) 1.1 L PT 15.1 H APTT 21.3 L Sodium BUN 18 H Glucose POC Glucose 12/10/18 12/10/18 10:44 13:17 RDW Lymphocytes # (Manual) PT APTT Sodium 146 H BUN 20 H Glucose 111 H POC Glucose 165 H Chest x-ray: image reviewed
[2018-12-11] MEDS: GLUCOPHAGE PO SCH ×2 (10:41→19:19)
[2018-12-11] MEDS: SODIUM CHLORIDE FLUSH SYRINGE 10 ML IV SCH ×2 (10:43→21:22)
[2018-12-11] MEDS: PROTONIX PO SCH (10:43)
[2018-12-11] MEDS: K-DUR PO SCH (10:46)
[2018-12-11] MEDS: ELIQUIS PO SCH ×2 (15:41→21:22)
[2018-12-11] MEDS: LASIX PO SCH (15:41)
[2018-12-11] MEDS: CARDIZEM CD PO SCH (15:41)
[2018-12-11] MEDS ORDERED: NACL 0.45% 500 ML IV SCH (18:00)
--- NOTE | 2018-12-11 18:57 | Progress Note ---
Assessment and Plan Assessment and plan: Acute respiratory failure due to malignant pleural effusion Admitted to Telemetry Supplemental oxygen Pulmonology following Malignant left pleural effusion, large. s/p thoracentesis 12/10 with 2100ml pleural fluid removed, she last had thoracentesis just 2 weeks ago on 11/23/18 Eliquis put on hold Breast cancer with metastases. Consulted Dr. Palacios, Oncology, he was following as outpatient COPD,stable Hypertension monitor BP Diabetes mellitus type 2 fingerstick qac and hs Full code status Discussed with patient and daughter at bedside. History Interval history: Shortness of breath improved after thoracentesis History of malignant pleural effusion Hospitalist Physical - Physical exam Narrative exam: GEN: Not in acute distress, lying in bed HEENT: Normocephalic, atraumatic, Neck: supple, No JVD Lungs: Cleatr to auscultation bilaterally, no crackles, no wheeze Abd:soft, non tender, non distended, normal bowel sounds Ext: No edema, no clubbing, no cyanosis Neuro:Awake,alert,oriented X 3, no focal signs Skin:No rash Psych: Depressed - Constitutional Vitals: Temp Pulse Resp BP Pulse Ox 98.0 F 66 20 94/56 98 12/11/18 09:50 12/11/18 09:50 12/11/18 09:50 12/11/18 09:50 12/11/18 09:50 General appearance: Present: no acute distress Results - Labs CBC & Chem 7: 12/08/18 17:03 12/10/18 13:17 Labs: Laboratory Last Values WBC 5.9 K/mm3 (4.5-11.0) 12/08/18 17:03 RBC 3.93 M/mm3 (3.65-5.03) 12/08/18 17:03 Hgb 11.4 gm/dl (10.1-14.3) 12/08/18 17:03 Hct 34.8 % (30.3-42.9) 12/08/18 17:03 MCV 89 fl (79-97) 12/08/18 17:03 MCH 29 pg (28-32) 12/08/18 17:03 MCHC 33 % (30-34) 12/08/18 17:03 RDW 26.9 % (13.2-15.2) H 12/08/18 17:03 Plt Count 381 K/mm3 (140-440) 12/08/18 17:03 Lymph % (Auto) Heat [employer] Frost Insulator Helper 12/08/18 17:03 [place] % (Auto) [employer] Insulator Helper 12/08/18 17:03 Eos % (Auto) [employer] Insulator Helper 12/08/18 17:03 Baso % (Auto) [employer] Insulator Helper 12/08/18 17:03 Lymph # [employer] Insulator Helper 12/08/18 17:03 [place] # Heat And Frost Insulator Helper 12/08/18 17:03 Eos # Heat And Frost Insulator Helper 12/08/18 17:03 Baso # Heat [employer] Frost Insulator Helper 12/08/18 17:03 Add Manual Diff Complete 12/08/18 17:03 Total Counted 100 12/08/18 17:03 Seg Neutrophils % [employer] Insulator Helper 12/08/18 17:03 Seg Neuts % (Manual) 70.0 % (40.0-70.0) 12/08/18 17:03 Band Neutrophils % 0 % 12/08/18 17:03 Lymphocytes % (Manual) 19.0 % (13.4-35.0) 12/08/18 17:03 Reactive Lymphs % (Man) 0 % 12/08/18 17:03 Monocytes % (Manual) 7.0 % (0.0-7.3) 12/08/18 17:03 Eosinophils % (Manual) 4.0 % (0.0-4.3) 12/08/18 17:03 Basophils % (Manual) 0 % (0.0-1.8) 12/08/18 17:03 Metamyelocytes % 0 % 12/08/18 17:03 Myelocytes % 0 % 12/08/18 17:03 Promyelocytes % 0 % 12/08/18 17:03 Blast Cells % 0 % 12/08/18 17:03 Nucleated RBC % Not Reportable 12/08/18 17:03 Seg Neutrophils # Heat [employer] Frost Insulator Helper 12/08/18 17:03 Seg Neutrophils # Man 4.1 K/mm3 (1.8-7.7) 12/08/18 17:03 Band Neutrophils # 0.0 K/mm3 12/08/18 17:03 Lymphocytes # (Manual) 1.1 K/mm3 (1.2-5.4) L 12/08/18 17:03 Abs React Lymphs (Man) 0.0 K/mm3 12/08/18 17:03 Monocytes # (Manual) 0.4 K/mm3 (0.0-0.8) 12/08/18 17:03 Eosinophils # (Manual) 0.2 K/mm3 (0.0-0.4) 12/08/18 17:03 Basophils # (Manual) 0.0 K/mm3 (0.0-0.1) 12/08/18 17:03 Metamyelocytes # 0.0 K/mm3 12/08/18 17:03 Myelocytes # 0.0 K/mm3 12/08/18 17:03 Promyelocytes # 0.0 K/mm3 12/08/18 17:03 Blast Cells # 0.0 K/mm3 12/08/18 17:03 WBC Morphology Not Reportable 12/08/18 17:03 Hypersegmented Neuts Not Reportable 12/08/18 17:03 Hyposegmented Neuts Not Reportable 12/08/18 17:03 Hypogranular Neuts Not Reportable 12/08/18 17:03 Smudge Cells Not Reportable 12/08/18 17:03 Toxic Granulation Not Reportable 12/08/18 17:03 Toxic Vacuolation Not Reportable 12/08/18 17:03 Dohle Bodies Not Reportable 12/08/18 17:03 Pel[place]-Huet Anomaly Not Reportable 12/08/18 17:03 Bonnie Rods Not Reportable 12/08/18 17:03 Platelet Estimate Not Reportable 12/08/18 17:03 Clumped Platelets Not Reportable 12/08/18 17:03 Plt Clumps, EDTA Not Reportable 12/08/18 17:03 Large Platelets Not Reportable 12/08/18 17:03 Giant Platelets Not Reportable 12/08/18 17:03 Platelet Satelliting Not Reportable 12/08/18 17:03 Plt Morphology Comment Not Reportable 12/08/18 17:03 RBC Morphology Normal 12/08/18 17:03 Dimorphic RBCs Not Reportable 12/08/18 17:03 Polychromasia Not Reportable 12/08/18 17:03 Hypochromasia Not Reportable 12/08/18 17:03 Poikilocytosis Not Reportable 12/08/18 17:03 Anisocytosis Not Reportable 12/08/18 17:03 Microcytosis Not Reportable 12/08/18 17:03 Macrocytosis Not Reportable 12/08/18 17:03 Spherocytes Not Reportable 12/08/18 17:03 Pappenheimer Bodies Not Reportable 12/08/18 17:03 Sickle Cells Not Reportable 12/08/18 17:03 Target Cells Not Reportable 12/08/18 17:03 Tear Drop Cells Not Reportable 12/08/18 17:03 Ovalocytes Not Reportable 12/08/18 17:03 Helmet Cells Not Reportable 12/08/18 17:03 [place] Bodies Not Reportable 12/08/18 17:03 [place] Rings Not Reportable 12/08/18 17:03 [place] Cells Not Reportable 12/08/18 17:03 Bite Cells Not Reportable 12/08/18 17:03 Crenated Cell Not Reportable 12/08/18 17:03 Elliptocytes Not Reportable 12/08/18 17:03 Acanthocytes (Spur) Not Reportable 12/08/18 17:03 Rouleaux Not Reportable 12/08/18 17:03 Hemoglobin C Crystals Not Reportable 12/08/18 17:03 Schistocytes Not Reportable 12/08/18 17:03 Malaria parasites Not Reportable 12/08/18 17:03 Maikel Bodies Not Reportable 12/08/18 17:03 Hem Pathologist Commnt No 12/08/18 17:03 PT 15.1 Sec. (12.2-14.9) H 12/08/18 17:03 INR 1.12 (0.87-1.13) 12/08/18 17:03 APTT 21.3 Sec. (24.2-36.6) L 12/08/18 17:03 Sodium 146 mmol/L (137-145) H 12/10/18 13:17 Potassium 4.5 mmol/L (3.6-5.0) 12/10/18 13:17 Chloride 100.8 mmol/L (98-107) 12/10/18 13:17 Carbon Dioxide 28 mmol/L (22-30) 12/10/18 13:17 Anion Gap 22 mmol/L 12/10/18 13:17 BUN 20 mg/dL (7-17) H 12/10/18 13:17 Creatinine 1.1 mg/dL (0.7-1.2) 12/10/18 13:17 Estimated GFR 60 ml/min 12/10/18 13:17 BUN/Creatinine Ratio 18 % 12/10/18 13:17 Glucose 111 mg/dL (65-100) H 12/10/18 13:17 POC Glucose 99 (70-105) 12/11/18 17:17 Hemoglobin A1c 5.2 % (4-6) 12/08/18 22:57 Calcium 9.6 mg/dL (8.4-10.2) 12/10/18 13:17 Troponin T < 0.010 ng/mL (0.00-0.029) 12/08/18 17:03 Urine Color Yellow (Yellow) 12/09/18 16:37 Urine Turbidity Clear (Clear) 12/09/18 16:37 Urine pH 5.0 (5.0-7.0) 12/09/18 16:37 Ur Specific [place] 1.025 (1.003-1.030) 12/09/18 16:37 Urine Protein <15 mg/dl mg/dL (Negative) 12/09/18 16:37 Urine Glucose (UA) Neg mg/dL (Negative) 12/09/18 16:37 Urine Ketones Neg mg/dL (Negative) 12/09/18 16:37 Urine Blood Neg (Negative) 12/09/18 16:37 Urine Nitrite Neg (Negative) 12/09/18 16:37 Urine Bilirubin Neg (Negative) 12/09/18 16:37 Urine Urobilinogen 4.0 mg/dL (<2.0) 12/09/18 16:37 Ur Leukocyte Esterase Sm (Negative) 12/09/18 16:37 Urine WBC (Auto) 3.0 /HPF (0.0-6.0) 12/09/18 16:37 Urine RBC (Auto) < 1.0 /HPF (0.0-6.0) 12/09/18 16:37 U Epithel Cells (Auto) 1.0 /HPF (0-13.0) 12/09/18 16:37 Urine Mucus Few /HPF 12/09/18 16:37 Fluid Type Pleural 12/10/18 11:10 Fluid Color Bloody 12/10/18 11:10 Fluid Appearance Bloody 12/10/18 11:10 Fluid WBC 880 /mm3 12/10/18 11:10 Fluid RBC 56643 /mm3 12/10/18 11:10 Fluid Seg Neutrophils 2.0 % 12/10/18 11:10 Fluid Lymphocytes 8.0 % 12/10/18 11:10 Fluid Reactive Lymphs 0 % 12/10/18 11:10 Fluid Monocytes 87.0 % 12/10/18 11:10 Fluid Eosinophils 3.0 % 12/10/18 11:10 Fluid Basophils 0 % 12/10/18 11:10
[2018-12-12 07:09] VITALS: BP 106/63
[2018-12-12] MEDS: ELIQUIS PO SCH (10:45)
[2018-12-12] MEDS: PROTONIX PO SCH (10:45)
[2018-12-12] MEDS: LASIX PO SCH (10:45)
[2018-12-12] MEDS: GLUCOPHAGE PO SCH (10:45)
[2018-12-12] MEDS: K-DUR PO SCH (10:46)
[2018-12-12] MEDS: CARDIZEM CD PO SCH (10:46)
[2018-12-12] MEDS: SODIUM CHLORIDE FLUSH SYRINGE 10 ML IV SCH (10:48)
--- NOTE | 2018-12-12 11:57 | Progress Note ---
Assessment and Plan - Patient Problems (1) Pleural effusion on left Current Visit: Yes Status: Acute Plan to address problem: Patient is being managed by pulmonary medicine for presenting left pleural effusion. Cardiac status is stable, will follow intermittently. Subjective Date of service: 12/12/18 Principal diagnosis: SOB Interval history: Patient is comfortable, no cardiac complaints, shortness of breath has improved following the thoracentesis. Objective Vital Signs Temp Pulse Resp BP Pulse Ox 12/12/18 04:40 97.6 F 72 20 106/63 98 12/12/18 04:00 87 12/11/18 23:55 97.7 F 94 H 20 98/69 97 12/11/18 22:00 18 12/11/18 20:53 97.6 F 85 20 101/65 96 12/11/18 18:57 98.0 F 18 12/11/18 18:56 98.2 F 20 12/11/18 18:53 98.2 F 93 H 20 100/62 97 12/11/18 12:00 67 - Physical Examination General: No Apparent Distress HEENT: Positive: PERRL Neck: Positive: trachea midline Cardiac: Positive: Reg Rate and Rhythm Lungs: Positive: Decreased Breath Sounds Neuro: Positive: Grossly Intact Abdomen: Positive: Soft Skin: Positive: Clear Extremities: Absent: edema
--- NOTE | 2018-12-12 14:01 | Discharge Summary ---
Providers - Providers Date of Admission: 12/08/18 18:21 Date of discharge: 12/12/18 Attending physician: DWAYNE JUAREZ 12/08/18 18:33 Consult to Physician [CONS] Urgent Comment: Dr. Sanchez spoke with Dr. Whalen @ 1931 Consulting Provider: LIONEL ALFRED Physician Instructions: Reason For Exam: shortness of breath, left pleural effusion. 12/08/18 22:28 Consult to Physician [CONS] Routine Comment: Consulting Provider: ROMULO BECKER Physician Instructions: Reason For Exam: CHF 12/10/18 11:14 Consult to Physician [CONS] Routine Comment: Consulting Provider: SAMI WHEATLEY Physician Instructions: Reason For Exam: metastatic breast cancer, malig pleural effusion Hospitalization Condition: Fair Hospital course: Patient is 68 yo with history of breast cancer, pleural effusion, CHF, COPD, chroic respiratory failure on home Oxygen,history of DVT on Eliquis.. She presented with shortness of breath.Chest X ray revealed large left pleural effusion. She was diagnosed with acute on chronic resp failure due to large left pleural effusion, placed on Oxygen and admitted. She ws evaluated by Pulmonology, Cardiology and Oncology. Ultrasound guided Thoracentesis was done on 12/10/18 and 2100ml removed and 120 ml sample sent for analysis. This revealed malignant cells. Of note he had thoracentesis done 2 weeks earler. Shortness of breath improved and she was discharged home on 12/12/18 to follow as outpatient. Discharged on Cardizem for paroxysmal atrial tachycardia Total time spent on discharge,37 mins Disposition: [id number]/TX-06 HOME UNDER HOME HLTH - Discharge Diagnoses (1) Acute on chronic respiratory failure with hypoxia Status: Acute (2) Dyspnea Status: Acute Qualifiers: Dyspnea type: shortness of breath Qualified Code(s): R06.02 - Shortness of breath; R06.00 - Dyspnea, unspecified; R06.01 - Orthopnea (3) Pleural effusion on left Status: Acute (4) COPD (chronic obstructive pulmonary disease) Status: Chronic Qualifiers: Emphysema type: unspecified (5) Hypertension Status: Chronic (6) Metastatic breast cancer Status: Chronic (7) Type 2 diabetes mellitus Status: Chronic Core Measure Documentation - Palliative Care Palliative Care/ Comfort Measures: Not Applicable - Core Measures Any of the following diagnoses?: none Exam - Constitutional Vitals: Temp Pulse Resp BP Pulse Ox 97.6 F 72 20 106/63 98 12/12/18 04:40 12/12/18 04:40 12/12/18 04:40 12/12/18 04:40 12/12/18 04:40 Plan Activity: no restrictions Diet: low fat, low cholesterol, low salt Additional Instructions: 1.Follow up with PCP in 3-5 days. 2.Follow up with Dr. wheatley on Friday12/14/18. 3.Foloow up with Dr. Cornell in 3-5 days. 4.Continue home Oxygen at 2 l/min NC Follow up with: RIP LEVIN [Other] - 3-5 Days Prescriptions: dilTIAZem CD [Cardizem CD] 120 mg PO QDAY #30 capsule
--- NOTE | 2018-12-13 08:57 | Event Note ---
Date: 12/11/18 dictation system [phone] [id number]
--- NOTE | 2018-12-13 13:00 | Consultation ---
REFERRING PHYSICIAN: Bartolome Marquez MD REASON FOR CONSULTATION: Breast cancer stage 4 with pleural effusion. HISTORY OF PRESENT ILLNESS: I saw the patient who is a 68-year-old female with past history of breast cancer stage 4, pleural effusion, CHF, hypertension, diabetes came to the hospital because of shortness of breath. Saturations were low [facility] and she was sent here. She has had a thoracentesis a few weeks ago. After that, I had seen her in the clinic and changed her chemotherapy. The patient's breast cancer was diagnosed by axillary lymph node biopsy and right pleural effusion. The primary was in the left breast, ER positive. The patient received TC regimen 4 cycles in the past. Caris testing had suggested benefit with exemestane, Afinitor. The patient was recently on Faslodex and Ibrance. However, the pleural effusion recurred while on this medication. Hence, chemotherapy was changed recently to eribulin. The patient was at primary care and her oxygen saturation was 68% and the patient was sent to the hospital. During this admission, the patient underwent thoracentesis of 2 liters. She is feeling better. She wants to go home. REVIEW OF SYSTEMS: At this time, no headache, no visual disturbances, no ear discharge. Shortness of breath has improved. No chest pain, no abdominal pain, no vomiting, no diarrhea, no dysuria. PAST MEDICAL HISTORY: As above. SURGICAL HISTORY: Port placement, appendectomy, left knee surgery, sinus surgery, tonsil surgery. SOCIAL HISTORY: No history of smoking. FAMILY HISTORY: Hypertension. PHYSICAL EXAMINATION: VITAL SIGNS: Temperature 97, pulse 94, respirations 20, BP 98/69. HEENT: No pallor. No icterus. NECK: No neck lymph nodes. HEART: S1, S2. LUNGS: Decreased air entry at the bases. ABDOMEN: Soft. EXTREMITIES: No calf tenderness. NEUROLOGIC: Alert, awake, oriented. LABORATORY DATA: Potassium 4.5, creatinine 1.1. Recent labs, white cell 5, hemoglobin 11, MCV 89, platelets 381. ASSESSMENT AND PLAN: 1. Recurrent breast cancer stage 4, pleural effusion, ER positive, HER-2 negative. The patient was on Faslodex and Ibrance; however, disease progressed on this regimen. The patient has been on this regimen since August 2018. Recently eribulin-based treatment was started and a thoracentesis for pleural effusion. 2. Elevated tumor markers. 3. Diabetes. 4. Hypertension. 5. History of congestive heart failure. 6. History of chronic obstructive pulmonary disease. 7. I will follow the patient during inpatient stay and then in the clinic setting. JOB# [id number] NM/NTS
[2018-12-14 09:39] LABS: LDH,Body Fluid 160
== END 2018-12-12 15:55 | disposition home health service (06) | DRG 597 ==
LOC: ED 16:27 → 4A 18:21
PROVIDERS: ADMIT Internal Medicine; ATTEND Internal Medicine
PROC: 0W9B3ZZ Drainage of Left Pleural Cavity, Percutaneous Approach (ICD-10-PCS; principal; 2018-12-10)
DX: C50.912 Malignant neoplasm of unspecified site of left female breast (principal); J96.21 Acute and chronic respiratory failure with hypoxia; J44.1 Chronic obstructive pulmonary disease with (acute) exacerbation; J91.0 Malignant pleural effusion; I82.401 Acute embolism and thrombosis of unspecified deep veins of right lower extremity; I50.32 Chronic diastolic (congestive) heart failure; C79.9 Secondary malignant neoplasm of unspecified site; E11.9 Type 2 diabetes mellitus without complications; K21.9 Gastro-esophageal reflux disease without esophagitis; I11.0 Hypertensive heart disease with heart failure; F32.9 Major depressive disorder, single episode, unspecified; J30.9 Allergic rhinitis, unspecified; Z90.49 Acquired absence of other specified parts of digestive tract; Z82.49 Family history of ischemic heart disease and other diseases of the circulatory system; Z17.0 Estrogen receptor positive status [ER+]; Z79.01 Long term (current) use of anticoagulants; Z79.899 Other long term (current) drug therapy; Z90.710 Acquired absence of both cervix and uterus
CPT/HCPCS: 32555; 36415; 71045; 80048; 81001; 82947; 82962; 83036; 83605; 84160; 84484; 85007; 85025; 85610; 85730; 87040; 89051; 93005; 93010; 93306; 99291; G0378; C1729; J1200; J1644; J1940; J2405

== ENCOUNTER 2018-12-22 13:04 | Inpatient (IN) | payer MEDICARE ==
--- NOTE | 2018-12-22 13:16 | Emergency Department Report ---
Chief Complaint: Dyspnea/Respdistress Stated Complaint: LUNGS FILLED UP WITH FLUID Time Seen by Provider: 12/22/18 13:13 - HPI History of Present Illness: This is a 68 y.o. female that presents with increasing SOB. Patient states she was released from this hospital 2 weeks ago. On home oxygen 2L. Currently being treated for breast cancer, left breast, stage 4. Patient states symptoms are similar to last admission. She weighed herself last Friday 243 and 252 toda y. - Exam Vital Signs: Vital Signs 12/22/18 13:05 Temperature 97.6 F Pulse Rate 83 Respiratory 20 Rate Blood Pressure 147/79 [Right] O2 Sat by Pulse 93 Oximetry MSE screening note: Focused history and physical exam performed. Due to findings the following was ordered: Labs, EKG, & CXR Main ED for further evaluation. ED Disposition for MSE Condition: Stable
[2018-12-22 13:38] LABS: Hematocrit 34.2 % (30.3-42.9); Hemoglobin 11.1 gm/dl (10.1-14.3); Mean Corpuscular HGB Conc 33 % (30-34); Mean Corpuscular Volume 89 fl (79-97); Platelet Count 304 K/mm3 (140-440); Red Blood Count 3.84 M/mm3 (3.65-5.03)
[2018-12-22 13:40] LABS: Red Cell Distribution Width 23.5 % (13.2-15.2)
--- NOTE | 2018-12-22 13:44 | Emergency Department Report ---
HPI - General Chief Complaint: Dyspnea/Respdistress Time Seen by Provider: 12/22/18 13:13 - HPI HPI: 68-year-old female presents to the emergency department with a complaint of some occasional shortness of breath and feeling like there is a collection of fluid on her lungs. She has a history of stage IV breast cancer with some metastasis causing pleural effusions. The patient was here earlier in the month and had 2 different episodes of thoracentesis to remove his pleural fluid. Patient says that over the past few days has been feeling like it has come back on and she says she has gained about 10 pounds in the past couple of days. She denies any chest or back pain. She just finished her second chemotherapy session today. Her primary care physician is Dr. Omari Dempsey. Her oncologist is Dr. Monge. Her rail track maintainer is Dr. Campbell. She has not taken anything for her symptoms prior to presentation. She also has a past medical history of COPD on 2 L oxygen at home, diabetes, GERD, hypertension, hyperlipidemia and a previous DVT for which she is on anticoagulation. ED Past Medical Hx - Past Medical History Hx Hypertension: Yes Hx Heart Attack/AMI: No Hx Congestive Heart Failure: Yes Hx Diabetes: Yes Hx GERD: Yes Hx Liver Disease: No Hx Seizures: No Hx Psychiatric Treatment: Yes (depression) Hx Asthma: Yes Hx COPD: Yes (O2 @ home PRN) Hx HIV: No Additional medical history: Breast Cancer- Received chemo on 03/05/16. anemia. high cholesterol. DVT - Surgical History Hx Appendectomy: Yes Additional Surgical History: Port Placement to right chest. Hyst. Left knee surgery. sinus surgery. tonsillectomy - Social History Smoking Status: Never Smoker Substance Use Type: None - Medications Home Medications: Home Medications Medication Instructions Recorded Confirmed Last Taken Type Omeprazole [PriLOSEC] 20 mg PO QDAY #30 capsule. 02/07/16 12/22/18 11/22/18 Rx 20mg Apixaban [Eliquis] 5 mg PO BID 11/23/18 12/22/18 11/20/18 History 5mg Furosemide [Lasix TAB] 20 mg PO BID 11/23/18 12/22/18 11/22/18 History 40mg Potassium Chloride [Klor-Con M10] 10 meq PO DAILY 11/23/18 12/22/18 11/22/18 History 10meq Umeclidinium Brm/Vilanterol Tr 1 puff IH DAILY 11/23/18 12/22/18 11/22/18 History [Anoro Ellipta 62.5-25 Mcg INH] 25mcg Fulvestrant (Nf) [Faslodex (Nf)] 500 mg IM QMONTH 12/08/18 12/22/18 Unknown History Metformin HCl [Glucophage] 1,000 mg PO BID 12/08/18 12/22/18 Unknown History Palbociclib [Ibrance] 100 mg PO DAILY 12/08/18 12/22/18 Unknown History dilTIAZem CD [Cardizem CD] 120 mg PO QDAY #30 capsule 12/12/18 12/22/18 Unknown Rx ED Review of Systems ROS: Stated complaint: LUNGS FILLED UP WITH FLUID Other details as noted in HPI Comment: All other systems reviewed and negative Constitutional: denies: chills, fever Eyes: denies: eye pain, vision change ENT: denies: ear pain, throat pain Respiratory: shortness of breath. denies: wheezing Cardiovascular: denies: chest pain, palpitations Gastrointestinal: denies: abdominal pain, vomiting Genitourinary: denies: dysuria, frequency Musculoskeletal: denies: back pain, arthralgia Skin: denies: rash, lesions Neurological: denies: headache, weakness Physical Exam - Physical Exam Vital Signs: Vital Signs 12/22/18 13:05 Temperature 97.6 F Pulse Rate 83 Respiratory 20 Rate Blood Pressure 147/79 [Right] O2 Sat by Pulse 93 Oximetry Physical Exam: GENERAL: The patient is well-developed well-nourished. HEENT: Normocephalic. Atraumatic. Patient has moist mucous membranes. EYES: Extraocular motions are intact. NECK: Supple. Trachea is midline. CHEST/LUNGS: There are some coarse breath sounds to the left side of the chest. No tachypnea or accessory muscle use. There is no respiratory distress noted. There is a chest port in place. HEART/CARDIOVASCULAR: Regular. There is no tachycardia. There is no obvious murmur. ABDOMEN: Abdomen is soft, nontender. Patient has normal bowel sounds. There is no abdominal distention. SKIN: Skin is warm and dry. NEURO: The patient is awake, alert, and oriented. The patient is cooperative. The patient has no focal neurologic deficits. The patient has normal speech. MUSCULOSKELETAL: There is no tenderness or deformity. There is no evidence of acute injury. ED Course Vital Signs 12/22/18 13:05 Temperature 97.6 F Pulse Rate 83 Respiratory 20 Rate Blood Pressure 147/79 [Right] O2 Sat by Pulse 93 Oximetry ED Medical Decision Making - Lab Data Result diagrams: 12/22/18 13:23 12/22/18 13:59 - EKG Data -: EKG Interpreted by Me EKG shows normal: sinus rhythm, axis, intervals, QRS complexes, ST-T waves Rate: normal - EKG Data When compared to previous EKG there are: previous EKG unavailable Interpretation: normal EKG - Radiology Data Radiology results: image reviewed interpreted by me: Chest x-ray shows a moderate left-sided pleural effusion. No pneumothorax. - Medical Decision Making This patient presents to the emergency department with some intermittent shortn ess of breath and feeling like she has a reaccumulation of her pleural effusion. She had about 1-2 L drained by thoracentesis about 10 days ago. Patient's labs have been unremarkable. Vital signs stable throughout her ED course. However the chest x-ray does show a moderate left-sided pleural effusion that does in fact show a reaccumulation of the previous pleural effusion. With her complaints of intermittent dyspnea the patient will be admitted to the hospital for further evaluation and possible thoracentesis. The patient was accepted for admission by the hospitalist, Dr. Maravilla. - Differential Diagnosis pleural effusion, PE, Pneumonia, CHF Critical Care Time: No Critical care attestation.: If time is entered above; I have spent that time in minutes in the direct care of this critically ill patient, excluding procedure time. ED Disposition Clinical Impression: Pleural effusion on left, Metastatic breast cancer Dyspnea Qualifiers: Dyspnea type: shortness of breath Qualified Code(s): R06.02 - Shortness of breath Disposition: -09 OP ADMIT IP TO THIS HOSP Is pt being admited?: Yes Condition: Fair Referrals: PRIMARY CARE, [Primary Care Provider] - 3-5 Days Time of Disposition: 15:51
[2018-12-22 13:50] LABS: INR 0.92 (0.87-1.13); Partial Thromboplastin Time 23.9 Sec. (24.2-36.6)
[2018-12-22 14:12] LABS: Total Cells Counted 100
[2018-12-22 14:14] LABS: Anisocytosis 1+; Ovalocytes Few; Platelet Estimate Consistent w Auto; Poikilocytosis 1+
[2018-12-22 14:21] LABS: Alanine Aminotransferase 14 units/L (7-56); Albumin 3.6 g/dL (3.9-5); BUN/Creatinine Ratio 13; Blood Urea Nitrogen 13 mg/dL (7-17); Calcium 9.1 mg/dL (8.4-10.2); Hemolysis Index 27
--- NOTE | 2018-12-22 14:51 | XRay Report ---
ROUTINE CHEST, TWO VIEWS: HISTORY: Shortness of breath. Compared to 12/10/18. Mild cardiomegaly and pulmonary venous congestion are stable. Moderate left pleural effusion has reaccumulated. There is compressive atelectasis at the left lung base. No pneumothorax. IMPRESSION: Moderate left pleural effusion has reaccumulated since 12/10/18.
[2018-12-22] MEDS ORDERED: TYLENOL PO PRN (17:33)
[2018-12-22] MEDS ORDERED: PERCOCET 5/325 PO PRN (17:33)
[2018-12-22] MEDS ORDERED: ZOFRAN IV PRN (17:33)
[2018-12-22] MEDS ORDERED: DILAUDID IV PRN (17:33)
[2018-12-22] MEDS ORDERED: SODIUM CHLORIDE FLUSH SYRINGE 10 ML IV PRN (17:33)
[2018-12-22] MEDS ORDERED: VILANTEROL TR IH SCH (17:45)
[2018-12-22] MEDS ORDERED: PALBOCICLIB 100 MG PO SCH (17:45)
[2018-12-22] MEDS ORDERED: NON-FORMULARY (Omeprazole [Prilosec] 20 MG) PO SCH (17:45)
[2018-12-22] MEDS ORDERED: UMECLIDINIUM BRM IH SCH (17:45)
[2018-12-22] MEDS ORDERED: FULVESTRANT IM SCH (17:45)
[2018-12-22] MEDS: DUONEB *Not for PRN Use IH SCH (20:37)
[2018-12-22] MEDS: GLUCOPHAGE PO SCH (21:55)
[2018-12-22] MEDS: PROTONIX PO SCH (21:55)
[2018-12-22] MEDS: K-DUR PO SCH (21:55)
[2018-12-22] MEDS: PEPCID PO SCH (21:55)
[2018-12-22] MEDS: LASIX PO SCH (21:55)
[2018-12-22] MEDS: LOVENOX SUB-Q SCH (21:55)
[2018-12-22] MEDS: CARDIZEM CD PO SCH (21:55)
[2018-12-22] MEDS ORDERED: NON-FORMULARY (Metformin Hcl [Glucophage] 1,000 MG) PO SCH (22:00)
--- NOTE | 2018-12-22 22:38 | History and Physical Report ---
History of Present Illness Date of examination: 12/22/18 Date of admission: 12/22/18 15:56 Chief complaint: Shortness of breath for 1 day History of present illness: 68-year-old female with history of breast cancer, recurrent pleural effusion, congestive heart failure, hypertension and diabetes comes in for increasing shortness of breath since yesterday. Patient and thoracentesis 2 weeks ago for left pleural effusion. Comes in again for recurrence of shortness of breath. No fever or chills. No chest pain. Patient is getting chemotherapy for breast cancer. Her oncologist is . Patient also has history of COPD and is on oxygen 2 L at home. Last admission reviewed and had thoracentesis for pleural effusion Past Medical History Hypertension: Yes Congestive Heart Failure: Yes Diabetes: Yes GERD: Yes Psychiatric Treatment: Yes (depression) Asthma: Yes COPD: Yes (O2 @ home PRN) Additional medical history: Breast Cancer- Received chemo on 03/05/16. anemia. high cholesterol. DVT--on ELIQUIS Surgical History Appendectomy Port Placement to right chest. Hysterectomy. Left knee surgery. sinus surgery. tonsillectomy Social History Smoking Status: Never Smoker Substance Use Type: None Family history Htn-mother Medications Home Medications: Home Medications Medication Instructions Recorded Confirmed Last Taken Type Omeprazole [PriLOSEC] 20 mg PO QDAY #30 capsule. 02/07/16 12/22/18 11/22/18 Rx 20mg Apixaban [Eliquis] 5 mg PO BID 11/23/18 12/22/18 11/20/18 History 5mg Furosemide [Lasix TAB] 20 mg PO BID 11/23/18 12/22/18 11/22/18 History 40mg Potassium Chloride [Klor-Con M10] 10 meq PO DAILY 11/23/18 12/22/18 11/22/18 History 10meq Umeclidinium Brm/Vilanterol Tr 1 puff IH DAILY 11/23/18 12/22/18 11/22/18 History [Anoro Ellipta 62.5-25 Mcg INH] 25mcg Fulvestrant (Nf) [Faslodex (Nf)] 500 mg IM QMONTH 12/08/18 12/22/18 Unknown History Metformin HCl [Glucophage] 1,000 mg PO BID 12/08/18 12/22/18 Unknown History Palbociclib [Ibrance] 100 mg PO DAILY 12/08/18 12/22/18 Unknown History dilTIAZem CD [Cardizem CD] 120 mg PO QDAY #30 capsule 12/12/18 12/22/18 Unknown Rx Review of Systems ROS: Stated complaint: LUNGS FILLED UP WITH FLUID Other details as noted in HPI Comment: All other systems reviewed and negative Constitutional: denies: chills, fever Eyes: denies: eye pain, vision change ENT: denies: ear pain, throat pain Respiratory: shortness of breath. denies: wheezing Cardiovascular: denies: chest pain, palpitations Gastrointestinal: denies: abdominal pain, vomiting Genitourinary: denies: dysuria, frequency Musculoskeletal: denies: back pain, arthralgia Skin: denies: rash, lesions Neurological: denies: headache, weakness Medications and Allergies Allergies Allergy/AdvReac Type Severity Reaction Status Date / Time benazepril AdvReac Angioedema Verified 12/08/18 22:44 Home Medications Medication Instructions Recorded Confirmed Last Taken Type Omeprazole [PriLOSEC] 20 mg PO QDAY #30 capsule. 02/07/16 12/22/18 11/22/18 Rx 20mg Apixaban [Eliquis] 5 mg PO BID 11/23/18 12/22/18 11/20/18 History 5mg Furosemide [Lasix TAB] 20 mg PO BID 11/23/18 12/22/18 11/22/18 History 40mg Potassium Chloride [Klor-Con M10] 10 meq PO DAILY 11/23/18 12/22/18 11/22/18 History 10meq Umeclidinium Brm/Vilanterol Tr 1 puff IH DAILY 11/23/18 12/22/18 11/22/18 History [Anoro Ellipta 62.5-25 Mcg INH] 25mcg Fulvestrant (Nf) [Faslodex (Nf)] 500 mg IM QMONTH 12/08/18 12/22/18 Unknown History Metformin HCl [Glucophage] 1,000 mg PO BID 12/08/18 12/22/18 Unknown History Palbociclib [Ibrance] 100 mg PO DAILY 12/08/18 12/22/18 Unknown History dilTIAZem CD [Cardizem CD] 120 mg PO QDAY #30 capsule 12/12/18 12/22/18 Unknown Rx Active Meds: Active Medications Acetaminophen (Tylenol) 650 mg PO Q4H PRN PRN Reason: Pain MILD(1-3)/Fever >100.5/RANDLE Albuterol/Ipratropium (Duoneb *Not For Prn Use*) 1 ampul IH QIDRT [facility] Last Admin: 12/22/18 20:37 Dose: 1 ampul Documented by: Diltiazem HCl (Cardizem Cd) 120 mg PO QDAY [facility] Last Admin: 12/22/18 21:55 Dose: 120 mg Documented by: Enoxaparin Sodium (Lovenox) 40 mg SUB-Q QDAY@2200 [facility] Last Admin: 12/22/18 21:55 Dose: 40 mg Documented by: Famotidine (Pepcid) 20 mg PO BID [facility] Last Admin: 12/22/18 21:55 Dose: 20 mg Documented by: Furosemide (Lasix) 20 mg PO BID [facility] Last Admin: 12/22/18 21:55 Dose: 20 mg Documented by: Hydromorphone HCl (Dilaudid) 0.5 mg IV Q3H PRN PRN Reason: Pain , Severe (7-10) Metformin HCl (Glucophage) 1,000 mg PO BID [facility] Last Admin: 12/22/18 21:55 Dose: 1,000 mg Documented by: Miscellaneous Medication (Fulvestrant (Nf)) 500 mg IM QMONTH [facility] Miscellaneous Medication (Palbociclib [Ibrance]) 100 mg PO DAILY [facility] Miscellaneous Medication (Umeclidinium Brm/Vilanterol Tr [Anoro Ellipta 62.5-25 Mcg Inh]) 1 puff IH DAILY [facility] Ondansetron HCl (Zofran) 4 mg IV Q8H PRN PRN Reason: Nausea And Vomiting Oxycodone/Acetaminophen (Percocet 5/325) 1 tab PO Q6H PRN PRN Reason: Pain, Moderate (4-6) Pantoprazole Sodium (Protonix) 20 mg PO QDAY [facility] Last Admin: 12/22/18 21:55 Dose: 20 mg Documented by: Potassium Chloride (K-Dur) 10 meq PO DAILY [facility] Last Admin: 12/22/18 21:55 Dose: 10 meq Documented by: Sodium Chloride (Sodium Chloride Flush Syringe 10 Ml) 10 ml IV BID LOAN Sodium Chloride (Sodium Chloride Flush Syringe 10 Ml) 10 ml IV PRN PRN PRN Reason: LINE FLUSH Exam - Physical Exam Narrative exam: Lying in bed in mild distress - Constitutional Vitals: Temp Pulse Resp BP Pulse Ox 98.3 F 99 H 20 126/82 94 12/22/18 19:46 12/22/18 21:55 12/22/18 20:50 12/22/18 21:55 12/22/18 20:50 General appearance: Present: mild distress, well-nourished - EENT Eyes: Present: PERRL ENT: hearing intact, clear oral mucosa - Neck Neck: Present: supple, normal ROM - Respiratory Respiratory effort: normal Respiratory: left: diminished (diminished air entry), bilateral: CTA - Cardiovascular Rhythm: regular Heart Sounds: Present: S1 & S2. Absent: rub, click - Extremities Extremities: pulses symmetrical, No edema Peripheral Pulses: within normal limits - Abdominal General gastrointestinal: Present: soft, non-tender, non-distended, normal bowel sounds Female genitourinary: Present: normal - Integumentary Integumentary: Present: clear, warm, dry - Musculoskeletal Musculoskeletal: gait normal, strength equal bilaterally - Psychiatric Psychiatric: appropriate mood/affect, intact judgment & insight - Neurologic Neurologic: CNII-XII intact, moves all extremities Results - Labs CBC & Chem 7: 12/22/18 13:23 12/22/18 13:59 Labs: Laboratory Last Values WBC 3.0 K/mm3 (4.5-11.0) L 12/22/18 13:23 RBC 3.84 M/mm3 (3.65-5.03) 12/22/18 13:23 Hgb 11.1 gm/dl (10.1-14.3) 12/22/18 13:23 Hct 34.2 % (30.3-42.9) 12/22/18 13:23 MCV 89 fl (79-97) 12/22/18 13:23 MCH 29 pg (28-32) 12/22/18 13:23 MCHC 33 % (30-34) 12/22/18 13:23 RDW 23.5 % (13.2-15.2) H 12/22/18 13:23 Plt Count 304 K/mm3 (140-440) 12/22/18 13:23 Add Manual Diff Complete 12/22/18 13:23 Total Counted 100 12/22/18 13:23 Seg Neuts % (Manual) 72.0 % (40.0-70.0) H 12/22/18 13:23 Band Neutrophils % 0 % 12/22/18 13:23 Lymphocytes % (Manual) 24.0 % (13.4-35.0) 12/22/18 13:23 Reactive Lymphs % (Man) 0 % 12/22/18 13:23 Monocytes % (Manual) 2.0 % (0.0-7.3) 12/22/18 13:23 Eosinophils % (Manual) 1.0 % (0.0-4.3) 12/22/18 13:23 Basophils % (Manual) 1.0 % (0.0-1.8) 12/22/18 13:23 Metamyelocytes % 0 % 12/22/18 13:23 Myelocytes % 0 % 12/22/18 13:23 Promyelocytes % 0 % 12/22/18 13:23 Blast Cells % 0 % 12/22/18 13:23 Nucleated RBC % Not Reportable 12/22/18 13:23 Seg Neutrophils # Man 2.2 K/mm3 (1.8-7.7) 12/22/18 13:23 Band Neutrophils # 0.0 K/mm3 12/22/18 13:23 Lymphocytes # (Manual) 0.7 K/mm3 (1.2-5.4) L 12/22/18 13:23 Abs React Lymphs (Man) 0.0 K/mm3 12/22/18 13:23 Monocytes # (Manual) 0.1 K/mm3 (0.0-0.8) 12/22/18 13:23 Eosinophils # (Manual) 0.0 K/mm3 (0.0-0.4) 12/22/18 13:23 Basophils # (Manual) 0.0 K/mm3 (0.0-0.1) 12/22/18 13:23 Metamyelocytes # 0.0 K/mm3 12/22/18 13:23 Myelocytes # 0.0 K/mm3 12/22/18 13:23 Promyelocytes # 0.0 K/mm3 12/22/18 13:23 Blast Cells # 0.0 K/mm3 12/22/18 13:23 WBC Morphology Not Reportable 12/22/18 13:23 Hypersegmented Neuts Not Reportable 12/22/18 13:23 Hyposegmented Neuts Not Reportable 12/22/18 13:23 Hypogranular Neuts Not Reportable 12/22/18 13:23 Smudge Cells Not Reportable 12/22/18 13:23 Toxic Granulation Not Reportable 12/22/18 13:23 Toxic Vacuolation Not Reportable 12/22/18 13:23 Dohle Bodies Not Reportable 12/22/18 13:23 Pelger-Huet Anomaly Not Reportable 12/22/18 13:23 Bonnie Rods Not Reportable 12/22/18 13:23 Platelet Estimate Consistent w auto 12/22/18 13:23 Clumped Platelets Not Reportable 12/22/18 13:23 Plt Clumps, EDTA Not Reportable 12/22/18 13:23 Large Platelets Not Reportable 12/22/18 13:23 Giant Platelets Not Reportable 12/22/18 13:23 Platelet Satelliting Not Reportable 12/22/18 13:23 Plt Morphology Comment Not Reportable 12/22/18 13:23 RBC Morphology Not Reportable 12/22/18 13:23 Dimorphic RBCs Not Reportable 12/22/18 13:23 Polychromasia Not Reportable 12/22/18 13:23 Hypochromasia Not Reportable 12/22/18 13:23 Poikilocytosis 1+ 12/22/18 13:23 Anisocytosis 1+ 12/22/18 13:23 Microcytosis Not Reportable 12/22/18 13:23 Macrocytosis Not Reportable 12/22/18 13:23 Spherocytes Not Reportable 12/22/18 13:23 Pappenheimer Bodies Not Reportable 12/22/18 13:23 Sickle Cells Not Reportable 12/22/18 13:23 Target Cells Not Reportable 12/22/18 13:23 Tear Drop Cells Not Reportable 12/22/18 13:23 Ovalocytes Few 12/22/18 13:23 Helmet Cells Not Reportable 12/22/18 13:23 Tejeda-Miranda Bodies Not Reportable 12/22/18 13:23 [place] Rings Not Reportable 12/22/18 13:23 Svetlana Cells Not Reportable 12/22/18 13:23 Bite Cells Not Reportable 12/22/18 13:23 Crenated Cell Not Reportable 12/22/18 13:23 Elliptocytes Rare 12/22/18 13:23 Acanthocytes (Spur) Not Reportable 12/22/18 13:23 Rouleaux Not Reportable 12/22/18 13:23 Hemoglobin C Crystals Not Reportable 12/22/18 13:23 Schistocytes Not Reportable 12/22/18 13:23 Malaria parasites Not Reportable 12/22/18 13:23 Maikel Bodies Not Reportable 12/22/18 13:23 Hem Pathologist Commnt No 12/22/18 13:23 PT 12.9 Sec. (12.2-14.9) 12/22/18 13:23 INR 0.92 (0.87-1.13) 12/22/18 13:23 APTT 23.9 Sec. (24.2-36.6) L 12/22/18 13:23 Sodium 143 mmol/L (137-145) 12/22/18 13:59 Potassium 4.4 mmol/L (3.6-5.0) 12/22/18 13:59 Chloride 103.8 mmol/L (98-107) 12/22/18 13:59 Carbon Dioxide 27 mmol/L (22-30) 12/22/18 13:59 Anion Gap 17 mmol/L 12/22/18 13:59 BUN 13 mg/dL (7-17) 12/22/18 13:59 Creatinine 1.0 mg/dL (0.7-1.2) 12/22/18 13:59 Estimated GFR > 60 ml/min 12/22/18 13:59 BUN/Creatinine Ratio 13 % 12/22/18 13:59 Glucose 117 mg/dL (65-100) H 12/22/18 13:59 POC Glucose 247 (70-105) H 12/22/18 21:57 Calcium 9.1 mg/dL (8.4-10.2) 12/22/18 13:59 Total Bilirubin 0.20 mg/dL (0.1-1.2) 12/22/18 13:59 AST 17 units/L (5-40) 12/22/18 13:59 ALT 14 units/L (7-56) 12/22/18 13:59 Alkaline Phosphatase 66 units/L (35-129) 12/22/18 13:59 NT-Pro-B Natriuret Pep 68.16 pg/mL (0-900) 12/22/18 13:59 Total Protein 6.4 g/dL (6.3-8.2) 12/22/18 13:59 Albumin 3.6 g/dL (3.9-5) L 12/22/18 13:59 Albumin/Globulin Ratio 1.3 % 12/22/18 13:59 - Imaging and Cardiology EKG: report reviewed Imaging and Cardiology: Chest x-ray IMPRESSION: Moderate left pleural effusion has reaccumulated since 12/10/18. Assessment and Plan Advance Directives: Yes (full code) VTE prophylaxis?: Chemical Plan of care discussed with patient/family: Yes - Patient Problems (1) Recurrent left pleural effusion Current Visit: Yes Status: Acute Plan to address problem: Patient needs thoracentesis Ultrasound-guided THORACENTESIS WAS ORDERED Pleural fluid to be sent for cell count protein glucose and LDH (2) Metastatic breast cancer Current Visit: Yes Status: Chronic Plan to address problem: Patient on chemotherapy (3) COPD (chronic obstructive pulmonary disease) Current Visit: Yes Status: Chronic Qualifiers: Emphysema type: unspecified Plan to address problem: Continue duo nebs and oxygen (4) Type 2 diabetes mellitus Current Visit: Yes Status: Chronic Qualifiers: Diabetes mellitus terminal computer operator insulin use: without terminal computer operator use Plan to address problem: Continue coverage and check hemoglobin A1c (5) Hypertension Current Visit: Yes Status: Chronic Qualifiers: Hypertension type: essential hypertension Qualified Code(s): I10 - Essential (primary) hypertension Plan to address problem: Continue antihypertensives (6) Depression Current Visit: Yes Status: Chronic Plan to address problem: Continue antidepressants (7) DVT (deep venous thrombosis) Current Visit: Yes Status: Chronic Qualifiers: DVT location: lower extremity Plan to address problem: We will hold the Eliquis for now (8) DVT prophylaxis Current Visit: Yes Status: Acute Plan to address problem: Lovenox initiated and GI prophylaxis
[2018-12-22] MEDS: SODIUM CHLORIDE FLUSH SYRINGE 10 ML IV SCH (22:57)
[2018-12-23 05:48] LABS: Hematocrit 31.4 % (30.3-42.9); Hemoglobin 10.4 gm/dl (10.1-14.3); Mean Corpuscular HGB Conc 33 % (30-34); Mean Corpuscular Volume 88 fl (79-97); Platelet Count 277 K/mm3 (140-440); Red Blood Count 3.57 M/mm3 (3.65-5.03)
[2018-12-23 06:22] LABS: Alanine Aminotransferase 11 units/L (7-56); Albumin 3.5 g/dL (3.9-5); BUN/Creatinine Ratio 14; Blood Urea Nitrogen 13 mg/dL (7-17); Calcium 8.7 mg/dL (8.4-10.2); Hemolysis Index 17
[2018-12-23] MEDS: DUONEB *Not for PRN Use IH SCH ×4 (08:56→20:00)
[2018-12-23 10:06] LABS: Monocytes % (Manual) 0 % (0.0-7.3); Total Cells Counted 100
[2018-12-23 10:07] LABS: Anisocytosis 1+; Basophils % (Manual) 0 % (0.0-1.8); Eosinophils % (Manual) 0 % (0.0-4.3)
[2018-12-23 10:08] LABS: Ovalocytes Few; Platelet Estimate Consistent w Auto; Poikilocytosis 1+
[2018-12-23] MEDS: PROTONIX PO SCH (10:30)
[2018-12-23] MEDS: GLUCOPHAGE PO SCH ×2 (10:31→22:12)
[2018-12-23] MEDS: CARDIZEM CD PO SCH (10:31)
[2018-12-23] MEDS: K-DUR PO SCH (10:31)
[2018-12-23] MEDS: LASIX PO SCH ×2 (10:31→22:13)
[2018-12-23] MEDS: HumaLOG SUB-Q SCH ×4 (10:33→22:30)
[2018-12-23] MEDS: PEPCID PO SCH ×2 (10:33→22:12)
[2018-12-23] MEDS: SODIUM CHLORIDE FLUSH SYRINGE 10 ML IV SCH ×2 (10:39→22:13)
--- NOTE | 2018-12-23 10:51 | Consultation ---
History of Present Illness Consult date: 12/23/18 Reason for consult: dyspnea, pleural effusion History of present illness: PULMONARY AND CRITICAL CARE CONSULTATION DR. GONZALEZ THANK YOU FOR ASKING US TO PARTICIPATE IN THE CARE OF THIS PATIENT. 68-year-old female with history of breast cancer, recurrent pleural effusion, congestive heart failure, hypertension and diabetes comes in for increasing shortness of breath since yesterday. Patient and thoracentesis 2 weeks ago for left pleural effusion. Comes in again for recurrence of shortness of breath. No fever or chills. No chest pain. Patient is getting chemotherapy for breast cancer. Her oncologist is . Patient also has history of COPD and is on oxygen 2 L at home. Patient resting on 2 litres O2.O2 saturation 99%.Patient says breathing better than on admission.Patient says her main problem is upset stomach. Chest xray reported moderate left pleural effusion. Patient scheduled for thoracentesis. Patient having recurrent left pleural effusion. Recommend to consult surgery for chest tube placement and thoracoscopy. Past History Past Medical History: COPD, other (bREAST CANCER AND PLEURAL EFFUSION.) Medications and Allergies Allergies Allergy/AdvReac Type Severity Reaction Status Date / Time benazepril AdvReac Angioedema Verified 12/08/18 22:44 Home Medications Medication Instructions Recorded Confirmed Last Taken Type Omeprazole [PriLOSEC] 20 mg PO QDAY #30 capsule. 02/07/16 12/22/18 11/22/18 Rx 20mg Apixaban [Eliquis] 5 mg PO BID 11/23/18 12/22/18 11/20/18 History 5mg Furosemide [Lasix TAB] 20 mg PO BID 11/23/18 12/22/18 11/22/18 History 40mg Potassium Chloride [Klor-Con M10] 10 meq PO DAILY 11/23/18 12/22/18 11/22/18 History 10meq Umeclidinium Brm/Vilanterol Tr 1 puff IH DAILY 11/23/18 12/22/18 11/22/18 History [Anoro Ellipta 62.5-25 Mcg INH] 25mcg Fulvestrant (Nf) [Faslodex (Nf)] 500 mg IM QMONTH 12/08/18 12/22/18 Unknown History Metformin HCl [Glucophage] 1,000 mg PO BID 12/08/18 12/22/18 Unknown History Palbociclib [Ibrance] 100 mg PO DAILY 12/08/18 12/22/18 Unknown History dilTIAZem CD [Cardizem CD] 120 mg PO QDAY #30 capsule 12/12/18 12/22/18 Unknown Rx Active Meds: Active Medications Acetaminophen (Tylenol) 650 mg PO Q4H PRN PRN Reason: Pain MILD(1-3)/Fever >100.5/RANDLE Albuterol/Ipratropium (Duoneb *Not For Prn Use*) 1 ampul IH QIDRT [facility] Last Admin: 12/23/18 08:56 Dose: 1 ampul Documented by: Diltiazem HCl (Cardizem Cd) 120 mg PO QDAY [facility] Last Admin: 12/23/18 10:31 Dose: 120 mg Documented by: Enoxaparin Sodium (Lovenox) 40 mg SUB-Q QDAY@2200 [facility] Last Admin: 12/22/18 21:55 Dose: 40 mg Documented by: Famotidine (Pepcid) 20 mg PO BID [facility] Last Admin: 12/23/18 10:33 Dose: 20 mg Documented by: Furosemide (Lasix) 20 mg PO BID [facility] Last Admin: 12/23/18 10:31 Dose: 20 mg Documented by: Hydromorphone HCl (Dilaudid) 0.5 mg IV Q3H PRN PRN Reason: Pain , Severe (7-10) Insulin Human Lispro (Humalog) 0 unit SUB-Q ACHS [facility]; Protocol Last Admin: 12/23/18 10:33 Dose: Not Given Documented by: Metformin HCl (Glucophage) 1,000 mg PO BID [facility] Last Admin: 12/23/18 10:31 Dose: 1,000 mg Documented by: Miscellaneous Medication (Fulvestrant (Nf)) 500 mg IM QMONTH [facility] Miscellaneous Medication (Palbociclib [Ibrance]) 100 mg PO DAILY [facility] Miscellaneous Medication (Umeclidinium Brm/Vilanterol Tr [Anoro Ellipta 62.5-25 Mcg Inh]) 1 puff IH DAILY [facility] Ondansetron HCl (Zofran) 4 mg IV Q8H PRN PRN Reason: Nausea And Vomiting Oxycodone/Acetaminophen (Percocet 5/325) 1 tab PO Q6H PRN PRN Reason: Pain, Moderate (4-6) Pantoprazole Sodium (Protonix) 20 mg PO QDAY [facility] Last Admin: 12/23/18 10:30 Dose: 20 mg Documented by: Potassium Chloride (K-Dur) 10 meq PO DAILY [facility] Last Admin: 12/23/18 10:31 Dose: 10 meq Documented by: Sodium Chloride (Sodium Chloride Flush Syringe 10 Ml) 10 ml IV BID [facility] Last Admin: 12/23/18 10:39 Dose: 10 ml Documented by: Sodium Chloride (Sodium Chloride Flush Syringe 10 Ml) 10 ml IV PRN PRN PRN Reason: LINE FLUSH Review of Systems All systems: negative Physical Examination Vital signs: Vital Signs Temp Pulse Resp BP Pulse Ox 97.6 F 83 20 147/79 93 12/22/18 13:05 12/22/18 13:05 12/22/18 13:05 12/22/18 13:05 12/22/18 13:05 General appearance: no acute distress, alert Eyes: non-icteric ENT: oropharynx moist Neck: supple, no JVD Ascultation: Bilateral: diminished breath sounds (left base) Cardiovascular: regular rate and rhythm Gastrointestinal: normoactive bowel sounds, soft, non-tender Integumentary: normal Extremities: no cyanosis, no edema Musculoskeletal: no deformities normal mental status, non-focal exam, pupils equal and round, CN II-XII normal mood appropriate Results - Laboratory Findings CBC and BMP: 12/23/18 04:08 12/23/18 04:08 PT/INR, D-dimer PT 12.9 Sec. (12.2-14.9) 12/22/18 13:23 INR 0.92 (0.87-1.13) 12/22/18 13:23 Abnormal lab findings: Abnormal Labs 12/22/18 12/22/18 12/22/18 13:23 13:23 13:59 WBC 3.0 L RBC RDW 23.5 H Seg Neuts % (Manual) 72.0 H Lymphocytes % (Manual) Lymphocytes # (Manual) 0.7 L APTT 23.9 L Glucose 117 H POC Glucose Total Protein Albumin 3.6 L 12/22/18 12/23/18 12/23/18 21:57 04:08 04:08 WBC 3.3 L RBC 3.57 L RDW 23.0 H Seg Neuts % (Manual) 87.0 H Lymphocytes % (Manual) 13.0 L Lymphocytes # (Manual) 0.4 L APTT Glucose 106 H POC Glucose 247 H Total Protein 6.0 L Albumin 3.5 L 12/23/18 07:20 WBC RBC RDW Seg Neuts % (Manual) Lymphocytes % (Manual) Lymphocytes # (Manual) APTT Glucose POC Glucose 110 H Total Protein Albumin - Diagnostic Findings Chest x-ray: report reviewed (MODERATE LEFT PLEURAL EFFUSION.), image reviewed Assessment and Plan 68-year-old female with history of breast cancer, recurrent pleural effusion, congestive heart failure, hypertension and diabetes comes in for increasing shortness of breath since yesterday. Patient and thoracentesis 2 weeks ago for left pleural effusion. Comes in again for recurrence of shortness of breath. No fever or chills. No chest pain. Patient is getting chemotherapy for breast cancer. Her oncologist is . Patient also has history of COPD and is on oxygen 2 L at home. Patient resting on 2 litres O2.O2 saturation 99%.Patient says breathing better than on admission.Patient says her main problem is upset stomach. Chest xray reported moderate left pleural effusion. Patient scheduled for thoracentesis. Patient having recurrent left pleural effusion. Recommend to consult surgery for chest tube placement and thoracoscopy. - Patient Problems (1) Recurrent left pleural effusion Current Visit: Yes Status: Acute Plan to address problem: Scheduled for thoracentesis. Recommend to consult surgery for Left Chest tube placement and sclerotherapy. (2) COPD (chronic obstructive pulmonary disease) Current Visit: Yes Status: Chronic Qualifiers: Emphysema type: unspecified Plan to address problem: O2 2 litres via nasal canula Albuterol/atrovent aerosol treatments q 6 hours. Continue S/C Lovenox. Continue Protonix. (3) DVT (deep venous thrombosis) Current Visit: Yes Status: Chronic Qualifiers: DVT location: lower extremity Plan to address problem: History of DVT. Patient is on S/C Lovenox. (4) Hypertension Current Visit: Yes Status: Chronic Qualifiers: Hypertension type: essential hypertension Qualified Code(s): I10 - Essential (primary) hypertension Plan to address problem: Management as per primary care. (5) Metastatic breast cancer Current Visit: Yes Status: Chronic Plan to address problem: Recommend to consult Oncology. (6) Type 2 diabetes mellitus Current Visit: Yes Status: Chronic Qualifiers: Diabetes mellitus director of software development insulin use: without director of software development use Plan to address problem: Management as per primary care.
[2018-12-23] MEDS ORDERED: XYLOCAINE 1% 20 mL ONE (11:50)
--- NOTE | 2018-12-23 12:31 | Progress Note ---
Assessment and Plan Assessment and plan: (1) Recurrent left pleural effusion Current Visit: Yes Status: Acute Plan to address problem: Left pleural effusion s/p thoracentesis 1400 mL pleural fluid removed, tolerated the procedure well Pleural fluid sent for histopathology (2) Metastatic breast cancer Current Visit: Yes Status: Chronic Plan to address problem: Patient on chemotherapy (3) COPD (chronic obstructive pulmonary disease) Current Visit: Yes Status: Chronic Qualifiers: Emphysema type: unspecified Plan to address problem: Continue duo nebs and oxygen (4) Type 2 diabetes mellitus Current Visit: Yes Status: Chronic Qualifiers: Diabetes mellitus mcfp insulin use: without vermin exterminator use Plan to address problem: Continue coverage and check hemoglobin A1c (5) Hypertension Current Visit: Yes Status: Chronic Qualifiers: Hypertension type: essential hypertension Qualified Code(s): I10 - Essential (primary) hypertension Plan to address problem: Continue antihypertensives (6) Depression Current Visit: Yes Status: Chronic Plan to address problem: Continue antidepressants (7) DVT (deep venous thrombosis) Current Visit: Yes Status: Chronic Qualifiers: DVT location: lower extremity Plan to address problem: We will hold the Eliquis for now (8) DVT prophylaxis Current Visit: Yes Status: Acute Plan to address problem: Lovenox initiated and GI prophylaxis History Interval history: Since seen and examined medical records reviewed Patient underwent ultrasound-guided left thoracentesis Fluid was sent for analysis Patient feels better no new complaints Vital signs noted Family and the bedside Hospitalist Physical - Constitutional Vitals: Temp Pulse Resp BP Pulse Ox 97.6 F 76 20 126/68 95 12/23/18 07:21 12/23/18 08:58 12/23/18 08:58 12/23/18 07:21 12/23/18 09:16 General appearance: Present: no acute distress, well-nourished - EENT Eyes: Present: PERRL, EOM intact - Neck Neck: Present: supple, normal ROM - Respiratory Respiratory effort: normal Respiratory: bilateral: diminished (left more than right ), rhonchi, negative: rales, wheezing - Cardiovascular Rhythm: regular Heart Sounds: Present: S1 & S2 - Extremities Extremities: no ischemia, No edema - Abdominal General gastrointestinal: soft, non-tender, non-distended, normal bowel sounds - Integumentary Integumentary: Present: clear, warm - Psychiatric Psychiatric: appropriate mood/affect, cooperative - Neurologic Neurologic: CNII-XII intact, moves all extremities Results - Labs CBC & Chem 7: 12/23/18 04:08 12/23/18 04:08 Labs: Laboratory Last Values WBC 3.3 K/mm3 (4.5-11.0) L 12/23/18 04:08 RBC 3.57 M/mm3 (3.65-5.03) L 12/23/18 04:08 Hgb 10.4 gm/dl (10.1-14.3) 12/23/18 04:08 Hct 31.4 % (30.3-42.9) 12/23/18 04:08 MCV 88 fl (79-97) 12/23/18 04:08 MCH 29 pg (28-32) 12/23/18 04:08 MCHC 33 % (30-34) 12/23/18 04:08 RDW 23.0 % (13.2-15.2) H 12/23/18 04:08 Plt Count 277 K/mm3 (140-440) 12/23/18 04:08 Add Manual Diff Complete 12/23/18 04:08 Total Counted 100 12/23/18 04:08 Seg Neuts % (Manual) 87.0 % (40.0-70.0) H 12/23/18 04:08 Band Neutrophils % 0 % 12/23/18 04:08 Lymphocytes % (Manual) 13.0 % (13.4-35.0) L 12/23/18 04:08 Reactive Lymphs % (Man) 0 % 12/23/18 04:08 Monocytes % (Manual) 0 % (0.0-7.3) 12/23/18 04:08 Eosinophils % (Manual) 0 % (0.0-4.3) 12/23/18 04:08 Basophils % (Manual) 0 % (0.0-1.8) 12/23/18 04:08 Metamyelocytes % 0 % 12/23/18 04:08 Myelocytes % 0 % 12/23/18 04:08 Promyelocytes % 0 % 12/23/18 04:08 Blast Cells % 0 % 12/23/18 04:08 Nucleated RBC % Not Reportable 12/23/18 04:08 Seg Neutrophils # Man 2.9 K/mm3 (1.8-7.7) 12/23/18 04:08 Band Neutrophils # 0.0 K/mm3 12/23/18 04:08 Lymphocytes # (Manual) 0.4 K/mm3 (1.2-5.4) L 12/23/18 04:08 Abs React Lymphs (Man) 0.0 K/mm3 12/23/18 04:08 Monocytes # (Manual) 0.0 K/mm3 (0.0-0.8) 12/23/18 04:08 Eosinophils # (Manual) 0.0 K/mm3 (0.0-0.4) 12/23/18 04:08 Basophils # (Manual) 0.0 K/mm3 (0.0-0.1) 12/23/18 04:08 Metamyelocytes # 0.0 K/mm3 12/23/18 04:08 Myelocytes # 0.0 K/mm3 12/23/18 04:08 Promyelocytes # 0.0 K/mm3 12/23/18 04:08 Blast Cells # 0.0 K/mm3 12/23/18 04:08 WBC Morphology Not Reportable 12/23/18 04:08 Hypersegmented Neuts Not Reportable 12/23/18 04:08 Hyposegmented Neuts Not Reportable 12/23/18 04:08 Hypogranular Neuts Not Reportable 12/23/18 04:08 Smudge Cells Not Reportable 12/23/18 04:08 Toxic Granulation Not Reportable 12/23/18 04:08 Toxic Vacuolation Not Reportable 12/23/18 04:08 Dohle Bodies Not Reportable 12/23/18 04:08 Pelger-Huet Anomaly Not Reportable 12/23/18 04:08 Bonnie Rods Not Reportable 12/23/18 04:08 Platelet Estimate Consistent w auto 12/23/18 04:08 Clumped Platelets Not Reportable 12/23/18 04:08 Plt Clumps, EDTA Not Reportable 12/23/18 04:08 Large Platelets Not Reportable 12/23/18 04:08 Giant Platelets Not Reportable 12/23/18 04:08 Platelet Satelliting Not Reportable 12/23/18 04:08 Plt Morphology Comment Not Reportable 12/23/18 04:08 RBC Morphology Not Reportable 12/23/18 04:08 Dimorphic RBCs Not Reportable 12/23/18 04:08 Polychromasia Not Reportable 12/23/18 04:08 Hypochromasia Not Reportable 12/23/18 04:08 Poikilocytosis 1+ 12/23/18 04:08 Anisocytosis 1+ 12/23/18 04:08 Microcytosis Not Reportable 12/23/18 04:08 Macrocytosis Not Reportable 12/23/18 04:08 Spherocytes Not Reportable 12/23/18 04:08 Pappenheimer Bodies Not Reportable 12/23/18 04:08 Sickle Cells Not Reportable 12/23/18 04:08 Target Cells Not Reportable 12/23/18 04:08 Tear Drop Cells Not Reportable 12/23/18 04:08 Ovalocytes Few 12/23/18 04:08 Helmet Cells Not Reportable 12/23/18 04:08 [place] Bodies Not Reportable 12/23/18 04:08 [place] Rings Not Reportable 12/23/18 04:08 [place] Cells Not Reportable 12/23/18 04:08 Bite Cells Not Reportable 12/23/18 04:08 Crenated Cell Not Reportable 12/23/18 04:08 Elliptocytes Rare 12/23/18 04:08 Acanthocytes (Spur) Not Reportable 12/23/18 04:08 Rouleaux Not Reportable 12/23/18 04:08 Hemoglobin C Crystals Not Reportable 12/23/18 04:08 Schistocytes Not Reportable 12/23/18 04:08 Malaria parasites Not Reportable 12/23/18 04:08 Maikel Bodies Not Reportable 12/23/18 04:08 Hem Pathologist Commnt No 12/23/18 04:08 PT 12.9 Sec. (12.2-14.9) 12/22/18 13:23 INR 0.92 (0.87-1.13) 12/22/18 13:23 APTT 23.9 Sec. (24.2-36.6) L 12/22/18 13:23 Sodium 141 mmol/L (137-145) 12/23/18 04:08 Potassium 4.5 mmol/L (3.6-5.0) 12/23/18 04:08 Chloride 102.7 mmol/L (98-107) 12/23/18 04:08 Carbon Dioxide 23 mmol/L (22-30) 12/23/18 04:08 Anion Gap 20 mmol/L 12/23/18 04:08 BUN 13 mg/dL (7-17) 12/23/18 04:08 Creatinine 0.9 mg/dL (0.7-1.2) 12/23/18 04:08 Estimated GFR > 60 ml/min 12/23/18 04:08 BUN/Creatinine Ratio 14 % 12/23/18 04:08 Glucose 106 mg/dL (65-100) H 12/23/18 04:08 POC Glucose 109 (70-105) H 12/23/18 11:35 Calcium 8.7 mg/dL (8.4-10.2) 12/23/18 04:08 Total Bilirubin 0.20 mg/dL (0.1-1.2) 12/23/18 04:08 AST 16 units/L (5-40) 12/23/18 04:08 ALT 11 units/L (7-56) 12/23/18 04:08 Alkaline Phosphatase 56 units/L (35-129) 12/23/18 04:08 NT-Pro-B Natriuret Pep 68.16 pg/mL (0-900) 12/22/18 13:59 Total Protein 6.0 g/dL (6.3-8.2) L 12/23/18 04:08 Albumin 3.5 g/dL (3.9-5) L 12/23/18 04:08 Albumin/Globulin Ratio 1.4 % 12/23/18 04:08 Active Medications - Current Medications Current Medications: Generic Name Dose Route Start Last Admin Trade Name Freq PRN Reason Stop Dose Admin Acetaminophen 650 mg 12/22/18 17:33 Tylenol PO Q4H PRN Pain MILD(1-3)/Fever >100.5/RANDLE Albuterol/Ipratropium 1 ampul 12/22/18 20:00 12/23/18 11:38 Duoneb *Not For Prn Use* IH Not Given QIDRT LOAN Diltiazem HCl 120 mg 12/22/18 18:00 12/23/18 10:31 Cardizem Cd PO 120 mg QDAY LOAN Administration Enoxaparin Sodium 40 mg 12/22/18 22:00 12/22/18 21:55 Lovenox SUB-Q 40 mg QDAY@2200 LOAN Administration Famotidine 20 mg 12/22/18 22:00 12/23/18 10:33 Pepcid PO 20 mg BID LOAN Administration Furosemide 20 mg 12/22/18 22:00 12/23/18 10:31 Lasix PO 20 mg BID LOAN Administration Hydromorphone HCl 0.5 mg 12/22/18 17:33 Dilaudid IV Q3H PRN Pain , Severe (7-10) Insulin Human Lispro 0 unit 12/23/18 07:30 12/23/18 10:33 Humalog SUB-Q Not Given ACHS [facility] Protocol Metformin HCl 1,000 mg 12/22/18 22:00 12/23/18 10:31 Glucophage PO 1,000 mg BID LOAN Administration Miscellaneous Medication 500 mg 12/22/18 17:45 Fulvestrant (Nf) IM QMONTH [facility] Miscellaneous Medication 100 mg 12/22/18 17:45 Palbociclib [Ibrance] PO DAILY [facility] Miscellaneous Medication 1 puff 12/22/18 17:45 Umeclidinium Brm/Vilanterol Tr [Anoro Ellipta 62.5-25 Mcg Inh] IH DAILY [facility] Ondansetron HCl 4 mg 12/22/18 17:33 Zofran IV Q8H PRN Nausea And Vomiting Oxycodone/Acetaminophen 1 tab 12/22/18 17:33 Percocet 5/325 PO Q6H PRN Pain, Moderate (4-6) Pantoprazole Sodium 20 mg 12/22/18 20:30 12/23/18 10:30 Protonix PO 20 mg QDAY LOAN Administration Potassium Chloride 10 meq 12/22/18 18:00 12/23/18 10:31 K-Dur PO 10 meq DAILY [facility]AN Administration Sodium Chloride 10 ml 12/22/18 22:00 12/23/18 10:39 Sodium Chloride Flush Syringe 10 Ml IV 10 ml BID LOAN Administration Sodium Chloride 10 ml 12/22/18 17:33 Sodium Chloride Flush Syringe 10 Ml IV PRN PRN LINE FLUSH
--- NOTE | 2018-12-23 15:10 | Procedure Note ---
Date of procedure: 12/23/18 Pre-op diagnosis: ascites Post-op diagnosis: same Procedure: US paracentesis Findings: large ascites Anesthesia: local Surgeon: RENE PATHAK Estimated blood loss: none Pathology: none Specimen disposition: discarded Condition: stable Disposition: floor
[2018-12-23 15:13] LABS: Total Cells Counted 100 /mm3
--- NOTE | 2018-12-23 16:53 | XRay Report ---
PROCEDURES: XR CHEST 1V AP TECHNIQUE: AP portable view of the chest. HISTORY: left hemothorax, recent thoracentesis COMPARISON: CXR 12/22/2018, 12/10/2018 FINDINGS: Lines, tubes, and devices: Right subclavian catheter terminates in the distal superior vena cava, unc hanged Lungs and pleura: Trachea is normal in position. Mild patchy infiltrates are scattered throughout the lower half of both lung zones, unchanged, likely mild atelectasis. Small left pleural effusion remai ns. No pneumothorax is seen. Cardiomediastinal silhouette: Cardiac and mediastinal silhouettes are unremarkable. Other: Bony structures demonstrate acute fractures involving the lateral left fifth and sixth ribs. IMPRESSION: Small left effusion with no pneumothorax. Underlying atelectasis in both lungs again noted. This document is electronically signed by Loretta James MD., December 23 2018 04:50:52 PM ET
[2018-12-23] MEDS ORDERED: LOVENOX SUB-Q SCH (22:00)
[2018-12-23] MEDS: LOVENOX SUB-Q SCH (22:13)
[2018-12-24] MEDS ORDERED: AMBIEN PO ONE ×2 (01:15→22:10)
[2018-12-24 06:25] LABS: Hematocrit 32.1 % (30.3-42.9); Hemoglobin 10.7 gm/dl (10.1-14.3); Mean Corpuscular HGB Conc 33 % (30-34); Mean Corpuscular Volume 88 fl (79-97); Platelet Count 286 K/mm3 (140-440); Red Blood Count 3.66 M/mm3 (3.65-5.03)
[2018-12-24 06:42] LABS: Red Cell Distribution Width 23.5 % (13.2-15.2)
[2018-12-24 06:53] LABS: BUN/Creatinine Ratio 14; Blood Urea Nitrogen 14 mg/dL (7-17); Calcium 8.7 mg/dL (8.4-10.2); Hemolysis Index 4
--- NOTE | 2018-12-24 07:18 | Hem/Onc Progress Note ---
Assessment and Plan malignant pl effusion 1. History of breast cancer, metastatic. 2. Pleural effusion, malignant. 3. The patient had received Taxotere and cyclophosphamide regimen in the past and was placed on Aromasin and Afinitor. Later, the patient was changed to Faslodex and Ibrance and as a fourth line agent, the patient was recently changed to eribulin. She has received 2 cycles of chemotherapy. 4. History of deep vein thrombosis. As per information is available, the patient has been on Eliquis for some time and we will get more information regarding this. 5. History of elevated Cancer Antigen 27-29. 6. History of diabetes. 7. History of hypertension. 8. History of chronic obstructive pulmonary disease, on oxygen. 9. Mild anemia. 10. I will follow the patient during inpatient stay and then in the clinic setting. After thoracocentesis, she will be discharged home. 12/24 - d/w dr palacios - plan for pleurex eval - Patient Problems (1) Recurrent left pleural effusion Current Visit: Yes Status: Acute Subjective Date of service: 12/24/18 Principal diagnosis: malignant pl effusion Interval history: s/p thoracentesis Objective - Constitutional Vitals: Last Vital Signs Temp 98.2 F 12/24/18 02:00 Pulse 69 12/24/18 02:00 Resp 18 12/24/18 02:00 BP 108/52 12/24/18 02:00 Pulse Ox 97 12/24/18 02:00 Pain Intensity (0-10): denies any pain General appearance: no acute distress Performance status: 2- selfcare, ambulatory - EENT Eyes: EOM intact ENT: clear oral mucosa Lymph node exam: negative cervical - Neck Neck: normal ROM - Respiratory Respiratory effort: Positive: normal Respiratory: bilateral: diminished - Cardiovascular Heart Sounds: Present: S1 & S2 Extremities: No edema - Gastrointestinal General gastrointestinal: Present: soft Rectal Exam: deferred - Genitourinary Female genitourinary: Present: deferred - Integumentary Integumentary: warm - Musculoskeletal Musculoskeletal: strength equal bilaterally - Neurologic Neurologic: moves all extremities - Psychiatric Psychiatric: appropriate mood/affect - Labs Lab Results: Laboratory Results - last 24 hr 12/22/18 12/23/18 12/23/18 Unknown 04:08 07:20 WBC RBC Hgb Hct MCV MCH MCHC RDW Plt Count Add Manual Diff Complete Total Counted 100 Seg Neuts % (Manual) 87.0 H Band Neutrophils % 0 Lymphocytes % (Manual) 13.0 L Reactive Lymphs % (Man) 0 Monocytes % (Manual) 0 Eosinophils % (Manual) 0 Basophils % (Manual) 0 Metamyelocytes % 0 Myelocytes % 0 Promyelocytes % 0 Blast Cells % 0 Nucleated RBC % Not Reportable Seg Neutrophils # Man 2.9 Band Neutrophils # 0.0 Lymphocytes # (Manual) 0.4 L Abs React Lymphs (Man) 0.0 Monocytes # (Manual) 0.0 Eosinophils # (Manual) 0.0 Basophils # (Manual) 0.0 Metamyelocytes # 0.0 Myelocytes # 0.0 Promyelocytes # 0.0 Blast Cells # 0.0 WBC Morphology Not Reportable Hypersegmented Neuts Not Reportable Hyposegmented Neuts Not Reportable Hypogranular Neuts Not Reportable Smudge Cells Not Reportable Toxic Granulation Not Reportable Toxic Vacuolation Not Reportable Dohle Bodies Not Reportable Pelger-Huet Anomaly Not Reportable Bonnie Rods Not Reportable Platelet Estimate Consistent w auto Clumped Platelets Not Reportable Plt Clumps, EDTA Not Reportable Large Platelets Not Reportable Giant Platelets Not Reportable Platelet Satelliting Not Reportable Plt Morphology Comment Not Reportable RBC Morphology Not Reportable Dimorphic RBCs Not Reportable Polychromasia Not Reportable Hypochromasia Not Reportable Poikilocytosis 1+ Anisocytosis 1+ Microcytosis Not Reportable Macrocytosis Not Reportable Spherocytes Not Reportable Pappenheimer Bodies Not Reportable Sickle Cells Not Reportable Target Cells Not Reportable Tear Drop Cells Not Reportable Ovalocytes Few Helmet Cells Not Reportable [place] Bodies Not Reportable [place] Not Reportable [place] Cells Not Reportable Bite Cells Not Reportable Crenated Cell Not Reportable Elliptocytes Rare Acanthocytes (Spur) Not Reportable Rouleaux Not Reportable Hemoglobin C Crystals Not Reportable Schistocytes Not Reportable Malaria parasites Not Reportable Maikel Bodies Not Reportable Hem Pathologist Commnt No Sodium Potassium Chloride Carbon Dioxide Anion Gap BUN Creatinine Estimated GFR BUN/Creatinine Ratio Glucose POC Glucose 110 H Calcium Fluid Type Pleural Fluid Color Bloody Fluid Appearance Bloody Fluid WBC 253 Fluid RBC [address] Fluid Seg Neutrophils 0 Fluid Lymphocytes 3.0 Fluid Reactive Lymphs 0 Fluid Monocytes 97.0 Fluid Eosinophils 0 Fluid Basophils 0 12/23/18 12/23/18 12/23/18 11:35 16:20 22:23 WBC RBC Hgb Hct MCV MCH MCHC RDW Plt Count Add Manual Diff Total Counted Seg Neuts % (Manual) Band Neutrophils % Lymphocytes % (Manual) Reactive Lymphs % (Man) Monocytes % (Manual) Eosinophils % (Manual) Basophils % (Manual) Metamyelocytes % Myelocytes % Promyelocytes % Blast Cells % Nucleated RBC % Seg Neutrophils # Man Band Neutrophils # Lymphocytes # (Manual) Abs React Lymphs (Man) Monocytes # (Manual) Eosinophils # (Manual) Basophils # (Manual) Metamyelocytes # Myelocytes # Promyelocytes # Blast Cells # WBC Morphology Hypersegmented Neuts Hyposegmented Neuts Hypogranular Neuts Smudge Cells Toxic Granulation Toxic Vacuolation Dohle Bodies Pelger-Huet Anomaly Bonnie Rods Platelet Estimate Clumped Platelets Plt Clumps, EDTA Large Platelets Giant Platelets Platelet Satelliting Plt Morphology Comment RBC Morphology Dimorphic RBCs Polychromasia Hypochromasia Poikilocytosis Anisocytosis Microcytosis Macrocytosis Spherocytes Pappenheimer Bodies Sickle Cells Target Cells Tear Drop Cells Ovalocytes Helmet Cells [place] Bodies [place] Cells Bite Cells Crenated Cell Elliptocytes Acanthocytes ([place]) Rouleaux Hemoglobin C Crystals Schistocytes Malaria parasites Maikel Bodies Hem Pathologist Commnt Sodium Potassium Chloride Carbon Dioxide Anion Gap BUN Creatinine Estimated GFR BUN/Creatinine Ratio Glucose POC Glucose 109 H 89 134 H Calcium Fluid Type Fluid Color Fluid Appearance Fluid WBC Fluid RBC Fluid Seg Neutrophils Fluid Lymphocytes Fluid Reactive Lymphs Fluid Monocytes Fluid Eosinophils Fluid Basophils 12/24/18 12/24/18 05:48 05:48 WBC 4.5 RBC 3.66 Hgb 10.7 Hct 32.1 MCV 88 MCH 29 MCHC 33 RDW 23.5 H Plt Count 286 Add Manual Diff Total Counted Seg Neuts % (Manual) Band Neutrophils % Lymphocytes % (Manual) Reactive Lymphs % (Man) Monocytes % (Manual) Eosinophils % (Manual) Basophils % (Manual) Metamyelocytes % Myelocytes % Promyelocytes % Blast Cells % Nucleated RBC % Seg Neutrophils # Man Band Neutrophils # Lymphocytes # (Manual) Abs React Lymphs (Man) Monocytes # (Manual) Eosinophils # (Manual) Basophils # (Manual) Metamyelocytes # Myelocytes # Promyelocytes # Blast Cells # WBC Morphology Hypersegmented Neuts Hyposegmented Neuts Hypogranular Neuts Smudge Cells Toxic Granulation Toxic Vacuolation Dohle Bodies Pelger-Huet Anomaly Bonnie Rods Platelet Estimate Clumped Platelets Plt Clumps, EDTA Large Platelets Giant Platelets Platelet Satelliting Plt Morphology Comment RBC Morphology Dimorphic RBCs Polychromasia Hypochromasia Poikilocytosis Anisocytosis Microcytosis Macrocytosis Spherocytes Pappenheimer Bodies Sickle Cells Target Cells Tear Drop Cells Ovalocytes Helmet Cells [place] Bodies [place] Cells Bite Cells Crenated Cell Elliptocytes Acanthocytes (Spur) Rouleaux Hemoglobin C Crystals Schistocytes Malaria parasites Maikel Bodies Hem Pathologist Commnt Sodium 145 Potassium 4.6 Chloride 100.3 Carbon Dioxide 30 D Anion Gap 19 BUN 14 Creatinine 1.0 Estimated GFR > 60 BUN/Creatinine Ratio 14 Glucose 110 H POC Glucose Calcium 8.7 Fluid Type Fluid Color Fluid Appearance Fluid WBC Fluid RBC Fluid Seg Neutrophils Fluid Lymphocytes Fluid Reactive Lymphs Fluid Monocytes Fluid Eosinophils Fluid Basophils Medications & Allergies - Medications Allergies/Adverse Reactions: Allergies benazepril Adverse Reaction (Verified 12/08/18 22:44) Angioedema Home Medications: Home Medications Medication Instructions Recorded Confirmed Last Taken Type RX: Omeprazole [PriLOSEC] 20 mg PO QDAY #30 capsule. 02/07/16 12/22/18 11/22/18 Rx 20mg RX: Apixaban [Eliquis] 5 mg PO BID 11/23/18 12/22/18 11/20/18 History 5mg RX: Furosemide [Lasix TAB] 20 mg PO BID 11/23/18 12/22/18 11/22/18 History 40mg RX: Potassium Chloride [Klor-Con 10 meq PO DAILY 11/23/18 12/22/18 11/22/18 History M10] 10meq RX: Umeclidinium Brm/Vilanterol Tr 1 puff IH DAILY 11/23/18 12/22/18 11/22/18 History [Anoro Ellipta 62.5-25 Mcg INH] 25mcg RX: Fulvestrant (Nf) [Faslodex 500 mg IM QMONTH 12/08/18 12/22/18 Unknown History (Nf)] RX: Metformin HCl [Glucophage] 1,000 mg PO BID 12/08/18 12/22/18 Unknown History RX: Palbociclib [Ibrance] 100 mg PO DAILY 12/08/18 12/22/18 Unknown History RX: dilTIAZem CD [Cardizem CD] 120 mg PO QDAY #30 capsule 12/12/18 12/22/18 Unknown Rx Active Medications: Generic Name Dose Route Start Last Admin Trade Name Freq PRN Reason Stop Dose Admin Acetaminophen 650 mg 12/22/18 17:33 Tylenol PO Q4H PRN Pain MILD(1-3)/Fever >100.5/RANDLE Albuterol/Ipratropium 1 ampul 12/22/18 20:00 12/23/18 20:00 Duoneb *Not For Prn Use* IH 1 ampul QIDRT [facility] Administration Diltiazem HCl 120 mg 12/22/18 18:00 12/23/18 10:31 Cardizem Cd PO 120 mg QDAY LOAN Administration Enoxaparin Sodium 40 mg 12/22/18 22:00 12/23/18 22:13 Lovenox SUB-Q 40 mg QDAY@2200 LOAN Administration Famotidine 20 mg 12/22/18 22:00 12/23/18 22:12 Pepcid PO 20 mg BID LOAN Administration Furosemide 20 mg 12/22/18 22:00 12/23/18 22:13 Lasix PO 20 mg BID LOAN Administration Hydromorphone HCl 0.5 mg 12/22/18 17:33 Dilaudid IV Q3H PRN Pain , Severe (7-10) Insulin Human Lispro 0 unit 12/23/18 07:30 12/23/18 22:30 Humalog SUB-Q Not Given ACHS [facility] Protocol Metformin HCl 1,000 mg 12/22/18 22:00 12/23/18 22:12 Glucophage PO 1,000 mg BID LOAN Administration Miscellaneous Medication 500 mg 12/22/18 17:45 Fulvestrant (Nf) IM QMONTH [facility] Miscellaneous Medication 100 mg 12/22/18 17:45 Palbociclib [Ibrance] PO DAILY [facility] Miscellaneous Medication 1 puff 12/22/18 17:45 Umeclidinium Brm/Vilanterol Tr [Anoro Ellipta 62.5-25 Mcg Inh] IH DAILY [facility] Ondansetron HCl 4 mg 12/22/18 17:33 Zofran IV Q8H PRN Nausea And Vomiting Oxycodone/Acetaminophen 1 tab 12/22/18 17:33 Percocet 5/325 PO Q6H PRN Pain, Moderate (4-6) Pantoprazole Sodium 20 mg 12/22/18 20:30 12/23/18 10:30 Protonix PO 20 mg QDAY LOAN Administration Potassium Chloride 10 meq 12/22/18 18:00 12/23/18 10:31 K-Dur PO 10 meq DAILY LOAN Administration Sodium Chloride 10 ml 12/22/18 22:00 12/23/18 22:13 Sodium Chloride Flush Syringe 10 Ml IV 10 ml BID LOAN Administration Sodium Chloride 10 ml 12/22/18 17:33 Sodium Chloride Flush Syringe 10 Ml IV PRN PRN LINE FLUSH
[2018-12-24] MEDS: DUONEB *Not for PRN Use IH SCH ×4 (07:24→20:08)
[2018-12-24] MEDS: HumaLOG SUB-Q SCH ×3 (07:51→18:01)
--- NOTE | 2018-12-24 08:25 | Event Note ---
Date: 12/23/18 [id number]
[2018-12-24] MEDS: LASIX PO SCH ×2 (09:06→22:07)
[2018-12-24] MEDS: CARDIZEM CD PO SCH (09:06)
[2018-12-24] MEDS: PEPCID PO SCH ×2 (09:07→22:06)
[2018-12-24] MEDS: K-DUR PO SCH (09:07)
[2018-12-24] MEDS: GLUCOPHAGE PO SCH ×2 (09:07→22:01)
[2018-12-24] MEDS: PROTONIX PO SCH (09:07)
[2018-12-24] MEDS: SODIUM CHLORIDE FLUSH SYRINGE 10 ML IV SCH ×2 (09:08→22:00)
--- NOTE | 2018-12-24 09:37 | Progress Note ---
Assessment and Plan (1) Recurrent left pleural effusion (2) COPD (chronic obstructive pulmonary disease) (3) Metastatic breast cancer (4) Lower extremity DVT (deep venous thrombosis) (5) Type 2 diabetes mellitus (6) Hypertension (7) Depression -Continue supplemental oxygen to keep O2 sats>90% -Chronic home medications -Bronchodilators -PT/OT, increase activity -Anticoagulation to resume -Discussed with hospitalist service if there in any further re-accumulation of pleural fluid, she will need an indwelling pleural drain with intermittent drainage Subjective Date of service: 12/24/18 Principal diagnosis: Left pleural effusion, Dyspnea Interval history: Patient is seen today for: Seen and examined at bedside; 24-hour events reviewed; nursing and respiratory care staff consulted; no adverse overnight events reported to me; s/p thoracentesis 1400 mL pleural fluid removed, tolerated the procedure well. She is breathing better, no fevers or chills, no chest pain, no shortness of breath Objective - Exam Narrative Exam: Lying in bed in nodistress General appearance: Present: no acute distress, well-nourished - EENT Eyes: Present: PERRL, EOM intact - Neck Neck: Present: supple, normal ROM - Respiratory Respiratory effort: normal Respiratory: bilateral: diminished (left more than right ), rhonchi, negative: rales, wheezing - Cardiovascular Rhythm: regular Heart Sounds: Present: S1 & S2 - Extremities Extremities: no ischemia, No edema - Abdominal General gastrointestinal: soft, non-tender, non-distended, normal bowel sounds - Integumentary Integumentary: Present: clear, warm - Psychiatric Psychiatric: appropriate mood/affect, cooperative - Neurologic Neurologic: CNII-XII intact, moves all extremities Vital Signs - 12hr 12/24/18 12/24/18 12/24/18 02:00 02:37 02:49 Temperature 98.2 F 98.2 F Pulse Rate 69 69 Pulse Rate [ Anterior Bilateral] Pulse Rate [ Bilateral Bases ] Respiratory 18 18 Rate Respiratory Rate [Anterior Bilateral] Respiratory Rate [Bilateral Bases] Blood Pressure 110/35 108/52 Blood Pressure 108/52 [Right] O2 Sat by Pulse 97 97 Oximetry 12/24/18 12/24/18 12/24/18 07:21 07:25 07:26 Temperature 97.9 F Pulse Rate Pulse Rate [ 84 Anterior Bilateral] Pulse Rate [ 84 Bilateral Bases ] Respiratory 20 Rate Respiratory 16 Rate [Anterior Bilateral] Respiratory 16 Rate [Bilateral Bases] Blood Pressure 103/60 Blood Pressure [Right] O2 Sat by Pulse 97 Oximetry 12/24/18 12/24/18 07:41 08:36 Temperature Pulse Rate 62 Pulse Rate [ Anterior Bilateral] Pulse Rate [ Bilateral Bases ] Respiratory 18 Rate Respiratory Rate [Anterior Bilateral] Respiratory Rate [Bilateral Bases] Blood Pressure Blood Pressure [Right] O2 Sat by Pulse 97 98 Oximetry Constitutional: no acute distress, alert Eyes: non-icteric ENT: oropharynx moist Neck: supple, no JVD Ascultation: Bilateral: diminished breath sounds (left base) Cardiovascular: regular rate and rhythm Gastrointestinal: normoactive bowel sounds, soft, non-tender Integumentary: normal Extremities: no cyanosis, no edema Neurologic: normal mental status, non-focal exam, pupils equal and round, CN II- XII normal Psychiatric: mood appropriate CBC and BMP: 12/24/18 05:48 12/24/18 05:48 ABG, PT/INR, D-dimer: PT/INR, D-dimer PT 12.9 Sec. (12.2-14.9) 12/22/18 13:23 INR 0.92 (0.87-1.13) 12/22/18 13:23 Abnormal lab findings: Abnormal Labs 12/22/18 12/22/18 12/22/18 13:23 13:23 13:59 WBC 3.0 L RBC RDW 23.5 H Seg Neuts % (Manual) 72.0 H Lymphocytes % (Manual) Lymphocytes # (Manual) 0.7 L APTT 23.9 L Glucose 117 H POC Glucose Total Protein Albumin 3.6 L 12/22/18 12/23/18 12/23/18 21:57 04:08 04:08 WBC 3.3 L RBC 3.57 L RDW 23.0 H Seg Neuts % (Manual) 87.0 H Lymphocytes % (Manual) 13.0 L Lymphocytes # (Manual) 0.4 L APTT Glucose 106 H POC Glucose 247 H Total Protein 6.0 L Albumin 3.5 L 12/23/18 12/23/18 12/23/18 07:20 11:35 22:23 WBC RBC RDW Seg Neuts % (Manual) Lymphocytes % (Manual) Lymphocytes # (Manual) APTT Glucose POC Glucose 110 H 109 H 134 H Total Protein Albumin 12/24/18 12/24/18 05:48 05:48 WBC RBC RDW 23.5 H Seg Neuts % (Manual) Lymphocytes % (Manual) Lymphocytes # (Manual) APTT Glucose 110 H POC Glucose Total Protein Albumin
--- NOTE | 2018-12-24 09:58 | XRay Report ---
AP CHEST: HISTORY: Followup thoracentesis Mild improvement in cardiomegaly and congestive changes are demonstrated since yesterday's exam. Near-complete evacuation of the left pleural fluid is demonstrated since the thoracentesis. Trace left pleural fluid persists. The lungs are generally clear otherwise. No evidence for pneumothorax. IMPRESSION: Small left pleural effusion. No pneumothorax.
--- NOTE | 2018-12-24 11:07 | Progress Note ---
Assessment and Plan Assessment and plan: Assessment and plan: (1) Recurrent left pleural effusion Current Visit: Yes Status: Acute Plan to address problem: Left pleural effusion s/p thoracentesis 1400 mL pleural fluid removed, tolerated the procedure well Pleural fluid sent for histopathology Pulmonary following (2) Metastatic breast cancer Current Visit: Yes Status: Chronic Plan to address problem: Patient on chemotherapy, oncology following (3) COPD (chronic obstructive pulmonary disease) Current Visit: Yes Status: Chronic Qualifiers: Emphysema type: unspecified Plan to address problem: Continue duo nebs and oxygen (4) Type 2 diabetes mellitus Current Visit: Yes Status: Chronic Qualifiers: Diabetes mellitus ocean transportation intermediary insulin use: without chcf use Plan to address problem: Continue coverage and check hemoglobin A1c 5.2 (5) Hypertension Current Visit: Yes Status: Chronic Qualifiers: Hypertension type: essential hypertension Qualified Code(s): I10 - Essential (primary) hypertension Plan to address problem: Continue antihypertensives (6) Depression Current Visit: Yes Status: Chronic Plan to address problem: Continue antidepressants (7) DVT (deep venous thrombosis) Current Visit: Yes Status: Chronic Qualifiers: DVT location: lower extremity Plan to address problem: We will hold the Eliquis for now (8) DVT prophylaxis Current Visit: Yes Status: Acute Plan to address problem: Lovenox initiated and GI prophylaxis History Interval history: Patient seen and examined medical records reviewed Patient feels better no new complaints Vital signs noted Hospitalist Physical - Constitutional Vitals: Temp Pulse Resp BP Pulse Ox 97.9 F 62 18 103/60 98 12/24/18 07:21 12/24/18 08:36 12/24/18 07:41 12/24/18 07:21 12/24/18 08:36 General appearance: Present: no acute distress, well-nourished - EENT Eyes: Present: PERRL, EOM intact - Neck Neck: Present: supple, normal ROM - Respiratory Respiratory effort: normal Respiratory: bilateral: diminished, rales, negative: rhonchi, wheezing - Cardiovascular Rhythm: regular Heart Sounds: Present: S1 & S2 - Extremities Extremities: no ischemia, No edema - Abdominal General gastrointestinal: soft, non-tender, non-distended, normal bowel sounds - Integumentary Integumentary: Present: clear, warm - Psychiatric Psychiatric: appropriate mood/affect, cooperative - Neurologic Neurologic: CNII-XII intact, moves all extremities Results - Labs CBC & Chem 7: 12/24/18 05:48 12/24/18 05:48 Labs: Laboratory Last Values WBC 4.5 K/mm3 (4.5-11.0) 12/24/18 05:48 RBC 3.66 M/mm3 (3.65-5.03) 12/24/18 05:48 Hgb 10.7 gm/dl (10.1-14.3) 12/24/18 05:48 Hct 32.1 % (30.3-42.9) 12/24/18 05:48 MCV 88 fl (79-97) 12/24/18 05:48 MCH 29 pg (28-32) 12/24/18 05:48 MCHC 33 % (30-34) 12/24/18 05:48 RDW 23.5 % (13.2-15.2) H 12/24/18 05:48 Plt Count 286 K/mm3 (140-440) 12/24/18 05:48 Add Manual Diff Complete 12/23/18 04:08 Total Counted 100 12/23/18 04:08 Seg Neuts % (Manual) 87.0 % (40.0-70.0) H 12/23/18 04:08 Band Neutrophils % 0 % 12/23/18 04:08 Lymphocytes % (Manual) 13.0 % (13.4-35.0) L 12/23/18 04:08 Reactive Lymphs % (Man) 0 % 12/23/18 04:08 Monocytes % (Manual) 0 % (0.0-7.3) 12/23/18 04:08 Eosinophils % (Manual) 0 % (0.0-4.3) 12/23/18 04:08 Basophils % (Manual) 0 % (0.0-1.8) 12/23/18 04:08 Metamyelocytes % 0 % 12/23/18 04:08 Myelocytes % 0 % 12/23/18 04:08 Promyelocytes % 0 % 12/23/18 04:08 Blast Cells % 0 % 12/23/18 04:08 Nucleated RBC % Not Reportable 12/23/18 04:08 Seg Neutrophils # Man 2.9 K/mm3 (1.8-7.7) 12/23/18 04:08 Band Neutrophils # 0.0 K/mm3 12/23/18 04:08 Lymphocytes # (Manual) 0.4 K/mm3 (1.2-5.4) L 12/23/18 04:08 Abs React Lymphs (Man) 0.0 K/mm3 12/23/18 04:08 Monocytes # (Manual) 0.0 K/mm3 (0.0-0.8) 12/23/18 04:08 Eosinophils # (Manual) 0.0 K/mm3 (0.0-0.4) 12/23/18 04:08 Basophils # (Manual) 0.0 K/mm3 (0.0-0.1) 12/23/18 04:08 Metamyelocytes # 0.0 K/mm3 12/23/18 04:08 Myelocytes # 0.0 K/mm3 12/23/18 04:08 Promyelocytes # 0.0 K/mm3 12/23/18 04:08 Blast Cells # 0.0 K/mm3 12/23/18 04:08 WBC Morphology Not Reportable 12/23/18 04:08 Hypersegmented Neuts Not Reportable 12/23/18 04:08 Hyposegmented Neuts Not Reportable 12/23/18 04:08 Hypogranular Neuts Not Reportable 12/23/18 04:08 Smudge Cells Not Reportable 12/23/18 04:08 Toxic Granulation Not Reportable 12/23/18 04:08 Toxic Vacuolation Not Reportable 12/23/18 04:08 Dohle Bodies Not Reportable 12/23/18 04:08 Pelger-Huet Anomaly Not Reportable 12/23/18 04:08 Bonnie Rods Not Reportable 12/23/18 04:08 Platelet Estimate Consistent w auto 12/23/18 04:08 Clumped Platelets Not Reportable 12/23/18 04:08 Plt Clumps, EDTA Not Reportable 12/23/18 04:08 Large Platelets Not Reportable 12/23/18 04:08 Giant Platelets Not Reportable 12/23/18 04:08 Platelet Satelliting Not Reportable 12/23/18 04:08 Plt Morphology Comment Not Reportable 12/23/18 04:08 RBC Morphology Not Reportable 12/23/18 04:08 Dimorphic RBCs Not Reportable 12/23/18 04:08 Polychromasia Not Reportable 12/23/18 04:08 Hypochromasia Not Reportable 12/23/18 04:08 Poikilocytosis 1+ 12/23/18 04:08 Anisocytosis 1+ 12/23/18 04:08 Microcytosis Not Reportable 12/23/18 04:08 Macrocytosis Not Reportable 12/23/18 04:08 Spherocytes Not Reportable 12/23/18 04:08 Pappenheimer Bodies Not Reportable 12/23/18 04:08 Sickle Cells Not Reportable 12/23/18 04:08 Target Cells Not Reportable 12/23/18 04:08 Tear Drop Cells Not Reportable 12/23/18 04:08 Ovalocytes Few 12/23/18 04:08 Helmet Cells Not Reportable 12/23/18 04:08 [place] Bodies Not Reportable 12/23/18 04:08 [place] Rings Not Reportable 12/23/18 04:08 Svetlana Cells Not Reportable 12/23/18 04:08 Bite Cells Not Reportable 12/23/18 04:08 Crenated Cell Not Reportable 12/23/18 04:08 Elliptocytes Rare 12/23/18 04:08 Acanthocytes (Spur) Not Reportable 12/23/18 04:08 Rouleaux Not Reportable 12/23/18 04:08 Hemoglobin C Crystals Not Reportable 12/23/18 04:08 Schistocytes Not Reportable 12/23/18 04:08 Malaria parasites Not Reportable 12/23/18 04:08 Maikel Bodies Not Reportable 12/23/18 04:08 Hem Pathologist Commnt No 12/23/18 04:08 PT 12.9 Sec. (12.2-14.9) 12/22/18 13:23 INR 0.92 (0.87-1.13) 12/22/18 13:23 APTT 23.9 Sec. (24.2-36.6) L 12/22/18 13:23 Sodium 145 mmol/L (137-145) 12/24/18 05:48 Potassium 4.6 mmol/L (3.6-5.0) 12/24/18 05:48 Chloride 100.3 mmol/L (98-107) 12/24/18 05:48 Carbon Dioxide 30 mmol/L (22-30) D 12/24/18 05:48 Anion Gap 19 mmol/L 12/24/18 05:48 BUN 14 mg/dL (7-17) 12/24/18 05:48 Creatinine 1.0 mg/dL (0.7-1.2) 12/24/18 05:48 Estimated GFR > 60 ml/min 12/24/18 05:48 BUN/Creatinine Ratio 14 % 12/24/18 05:48 Glucose 110 mg/dL (65-100) H 12/24/18 05:48 POC Glucose 93 (70-105) 12/24/18 07:17 Calcium 8.7 mg/dL (8.4-10.2) 12/24/18 05:48 Total Bilirubin 0.20 mg/dL (0.1-1.2) 12/23/18 04:08 AST 16 units/L (5-40) 12/23/18 04:08 ALT 11 units/L (7-56) 12/23/18 04:08 Alkaline Phosphatase 56 units/L (35-129) 12/23/18 04:08 NT-Pro-B Natriuret Pep 68.16 pg/mL (0-900) 12/22/18 13:59 Total Protein 6.0 g/dL (6.3-8.2) L 12/23/18 04:08 Albumin 3.5 g/dL (3.9-5) L 12/23/18 04:08 Albumin/Globulin Ratio 1.4 % 12/23/18 04:08 Fluid Type Pleural 12/22/18 Unknown Fluid Color Bloody 12/22/18 Unknown Fluid Appearance Bloody 12/22/18 Unknown Fluid WBC 253 /mm3 12/22/18 Unknown Fluid RBC 34377 /mm3 12/22/18 Unknown Fluid Seg Neutrophils 0 % 12/22/18 Unknown Fluid Lymphocytes 3.0 % 12/22/18 Unknown Fluid Reactive Lymphs 0 % 12/22/18 Unknown Fluid Monocytes 97.0 % 12/22/18 Unknown Fluid Eosinophils 0 % 12/22/18 Unknown Fluid Basophils 0 % 12/22/18 Unknown Active Medications - Current Medications Current Medications: Generic Name Dose Route Start Last Admin Trade Name Freq PRN Reason Stop Dose Admin Acetaminophen 650 mg 12/22/18 17:33 Tylenol PO Q4H PRN Pain MILD(1-3)/Fever >100.5/RANDLE Albuterol/Ipratropium 1 ampul 12/22/18 20:00 12/24/18 07:24 Duoneb *Not For Prn Use* IH 1 ampul QIDRT LOAN Administration Diltiazem HCl 120 mg 12/22/18 18:00 12/24/18 09:06 Cardizem Cd PO 120 mg QDAY LOAN Administration Enoxaparin Sodium 40 mg 12/22/18 22:00 12/23/18 22:13 Lovenox SUB-Q 40 mg QDAY@2200 LOAN Administration Famotidine 20 mg 12/22/18 22:00 12/24/18 09:07 Pepcid PO 20 mg BID LOAN Administration Furosemide 20 mg 12/22/18 22:00 12/24/18 09:06 Lasix PO 20 mg BID [facility] Administration Hydromorphone HCl 0.5 mg 12/22/18 17:33 Dilaudid IV Q3H PRN Pain , Severe (7-10) Insulin Human Lispro 0 unit 12/23/18 07:30 12/24/18 07:51 Humalog SUB-Q Not Given ACHS [facility] Protocol Metformin HCl 1,000 mg 12/22/18 22:00 12/24/18 09:07 Glucophage PO 1,000 mg BID [facility] Administration Miscellaneous Medication 500 mg 12/22/18 17:45 Fulvestrant (Nf) IM QMONTH [facility] Miscellaneous Medication 100 mg 12/22/18 17:45 Palbociclib [Ibrance] PO DAILY [facility] Miscellaneous Medication 1 puff 12/22/18 17:45 Umeclidinium Brm/Vilanterol Tr [Anoro Ellipta 62.5-25 Mcg Inh] IH DAILY [facility] Ondansetron HCl 4 mg 12/22/18 17:33 Zofran IV Q8H PRN Nausea And Vomiting Oxycodone/Acetaminophen 1 tab 12/22/18 17:33 Percocet 5/325 PO Q6H PRN Pain, Moderate (4-6) Pantoprazole Sodium 20 mg 12/22/18 20:30 12/24/18 09:07 Protonix PO 20 mg QDAY LOAN Administration Potassium Chloride 10 meq 12/22/18 18:00 12/24/18 09:07 K-Dur PO 10 meq DAILY [facility] Administration Sodium Chloride 10 ml 12/22/18 22:00 12/24/18 09:08 Sodium Chloride Flush Syringe 10 Ml IV 10 ml BID [facility] Administration Sodium Chloride 10 ml 12/22/18 17:33 Sodium Chloride Flush Syringe 10 Ml IV PRN PRN LINE FLUSH
[2018-12-24 11:13] LABS: Basophils % (Manual) 0 % (0.0-1.8); Total Cells Counted 100
[2018-12-24 11:14] LABS: Anisocytosis 1+; Eosinophils % (Manual) 0 % (0.0-4.3); Ovalocytes Rare; Platelet Estimate Consistent w Auto; Poikilocytosis 1+
--- NOTE | 2018-12-24 14:50 | Consultation ---
REASON FOR CONSULTATION: History of breast cancer stage 4 with recurrent pleural effusion. HISTORY OF PRESENT ILLNESS: I saw the patient, a 68-year-old female in the medical floor. She is known to me. She has a history of breast cancer. This was diagnosed by excisional lymph node biopsy and right pleural effusion. The breast cancer was on the left side. It was ER positive. She received 4 cycles of chemotherapy. This was in 2015. She received TC regimen. Later, she was placed on Afinitor, Aromasin. She had recurrent pleural effusion. She was placed on home oxygen. In August, the patient was changed to Faslodex and palbociclib. Due to recurrent pleural effusion, the patient was recently changed to eribulin as a fourth line agent. She received second dose of eribulin recently and was on the same day, she had appointment with pulmonary team where she went and was found to have shortness of breath, pleural effusion and she was admitted for thoracentesis. At this time, there is a plan for thoracentesis. No headache, no visual disturbances, no ear discharge. No abdominal pain, no vomiting. No hematemesis, no hematuria. No seizure or syncope or loss of consciousness. The patient has history of COPD and is oxygen. The patient has also history of DVT in the leg for which she was on anticoagulation. PAST MEDICAL HISTORY: Hypertension, congestive heart failure, deep vein thrombosis in leg, breast cancer for which she received initial chemotherapy in 02/2016. For DVT, the patient was on Eliquis twice a day. PAST SURGICAL HISTORY: Port placement, hysterectomy, left knee surgery. SOCIAL HISTORY: Nonsmoker. FAMILY HISTORY: Hypertension. HOME MEDICATIONS: Includes as per information, Eliquis. As per information in the EMR, Eliquis was stopped. ALLERGIES: BENAZEPRIL. PHYSICAL EXAMINATION: VITAL SIGNS: Temperature 97.8, pulse 78, respirations 20, BP 103/60. HEENT: No pallor. No icterus. NECK: No neck lymph nodes. Port is present. HEART: S1, S2. LUNGS: Decreased air entry in lungs. ABDOMEN: Soft. EXTREMITIES: No calf tenderness. NEUROLOGIC: Alert, awake, oriented. LABORATORY DATA: White cell is 3.3, hemoglobin 10.4, MCV 88, platelet 277, potassium 4.5, creatinine 0.9, calcium 8.7. RADIOLOGY: Chest x-ray showed pleural effusion in the left lung. ASSESSMENT AND PLAN: 1. History of breast cancer, metastatic. 2. Pleural effusion, malignant. 3. The patient had received Taxotere and cyclophosphamide regimen in the past and was placed on Aromasin and Afinitor. Later, the patient was changed to Faslodex and Ibrance and as a fourth line agent, the patient was recently changed to eribulin. She has received 2 cycles of chemotherapy. 4. History of deep vein thrombosis. As per information is available, the patient has been on Eliquis for some time and we will get more information regarding this. 5. History of elevated Cancer Antigen 27-29. 6. History of diabetes. 7. History of hypertension. 8. History of chronic obstructive pulmonary disease, on oxygen. 9. Mild anemia. 10. I will follow the patient during inpatient stay and then in the clinic setting. After thoracocentesis, she will be discharged home. JOB# [id number] NM/NTS
[2018-12-24] MEDS: LOVENOX SUB-Q SCH (22:01)
[2018-12-25] MEDS: HumaLOG SUB-Q SCH ×4 (05:01→16:48)
--- NOTE | 2018-12-25 05:18 | Hem/Onc Progress Note ---
Assessment and Plan malignant pl effusion 1. History of breast cancer, metastatic. 2. Pleural effusion, malignant. 3. The patient had received Taxotere and cyclophosphamide regimen in the past and was placed on Aromasin and Afinitor. Later, the patient was changed to Faslodex and Ibrance and as a fourth line agent, the patient was recently changed to eribulin. She has received 2 cycles of chemotherapy. 4. History of deep vein thrombosis. As per information is available, the patient has been on Eliquis for some time and we will get more information regarding this. 5. History of elevated Cancer Antigen 27-29. 6. History of diabetes. 7. History of hypertension. 8. History of chronic obstructive pulmonary disease, on oxygen. 9. Mild anemia. 10. I will follow the patient during inpatient stay and then in the clinic setting. After thoracocentesis, she will be discharged home. 12/24 - d/w dr palacios - plan for pleurex eval 12/25 - leg dvt ordered - if neg - as she is prone to recurrence due to neoplasm - eliquis 2.5 q 12 an option - Patient Problems (1) Recurrent left pleural effusion Current Visit: Yes Status: Acute Subjective Date of service: 12/25/18 Principal diagnosis: malignant pl effusion Interval history: feeling better pt says on eliquis 5 q 12 for leg dvt Objective - Constitutional Vitals: Last Vital Signs Temp 98.8 F 12/25/18 02:31 Pulse 68 12/25/18 02:31 Resp 20 12/25/18 02:31 BP 95/47 12/25/18 02:31 Pulse Ox 95 12/25/18 02:31 Pain Intensity (0-10): denies any pain General appearance: no acute distress Performance status: 2- selfcare, ambulatory - EENT Eyes: EOM intact ENT: clear oral mucosa Lymph node exam: negative cervical - Neck Neck: normal ROM - Respiratory Respiratory effort: Positive: normal Respiratory: bilateral: diminished - Cardiovascular Heart Sounds: Present: S1 & S2 Extremities: No edema - Gastrointestinal General gastrointestinal: Present: soft, non-tender Rectal Exam: deferred - Genitourinary Female genitourinary: Present: deferred - Integumentary Integumentary: warm - Musculoskeletal Musculoskeletal: strength equal bilaterally - Neurologic Neurologic: moves all extremities - Psychiatric Psychiatric: appropriate mood/affect - Labs Lab Results: Laboratory Results - last 24 hr 12/24/18 12/24/18 12/24/18 05:48 05:48 07:17 WBC 4.5 RBC 3.66 Hgb 10.7 Hct 32.1 MCV 88 MCH 29 MCHC 33 RDW 23.5 H Plt Count 286 Add Manual Diff Complete Total Counted 100 Seg Neuts % (Manual) 61.0 Band Neutrophils % 0 Lymphocytes % (Manual) 32.0 Reactive Lymphs % (Man) 0 Monocytes % (Manual) 7.0 Eosinophils % (Manual) 0 Basophils % (Manual) 0 Metamyelocytes % 0 Myelocytes % 0 Promyelocytes % 0 Blast Cells % 0 Nucleated RBC % Not Reportable Seg Neutrophils # Man 2.7 Band Neutrophils # 0.0 Lymphocytes # (Manual) 1.4 Abs React Lymphs (Man) 0.0 Monocytes # (Manual) 0.3 Eosinophils # (Manual) 0.0 Basophils # (Manual) 0.0 Metamyelocytes # 0.0 Myelocytes # 0.0 Promyelocytes # 0.0 Blast Cells # 0.0 WBC Morphology Not Reportable Hypersegmented Neuts Not Reportable Hyposegmented Neuts Not Reportable Hypogranular Neuts Not Reportable Smudge Cells Not Reportable Toxic Granulation Not Reportable Toxic Vacuolation Not Reportable Dohle Bodies Not Reportable Pelger-Huet Anomaly Not Reportable Bonnie Rods Not Reportable Platelet Estimate Consistent w auto Clumped Platelets Not Reportable Plt Clumps, EDTA Not Reportable Large Platelets Not Reportable Giant Platelets Not Reportable Platelet Satelliting Not Reportable Plt Morphology Comment Not Reportable RBC Morphology Not Reportable Dimorphic RBCs Not Reportable Polychromasia Not Reportable Hypochromasia Not Reportable Poikilocytosis 1+ Anisocytosis 1+ Microcytosis Not Reportable Macrocytosis Not Reportable Spherocytes Not Reportable Pappenheimer Bodies Not Reportable Sickle Cells Not Reportable Target Cells Not Reportable Tear Drop Cells Not Reportable Ovalocytes Rare Helmet Cells Not Reportable [place] Bodies Not Reportable [place] Rings Not Reportable Svetlana Cells Not Reportable Bite Cells Not Reportable Crenated Cell Not Reportable Elliptocytes Rare Acanthocytes (Spur) Not Reportable Rouleaux Not Reportable Hemoglobin C Crystals Not Reportable Schistocytes Not Reportable Malaria parasites Not Reportable Maikel Bodies Not Reportable Hem Pathologist Commnt No Sodium 145 Potassium 4.6 Chloride 100.3 Carbon Dioxide 30 D Anion Gap 19 BUN 14 Creatinine 1.0 Estimated GFR > 60 BUN/Creatinine Ratio 14 Glucose 110 H POC Glucose 93 Calcium 8.7 12/24/18 12/24/18 12/24/18 12:18 16:27 22:11 WBC RBC Hgb Hct MCV MCH MCHC RDW Plt Count Add Manual Diff Total Counted Seg Neuts % (Manual) Band Neutrophils % Lymphocytes % (Manual) Reactive Lymphs % (Man) Monocytes % (Manual) Eosinophils % (Manual) Basophils % (Manual) Metamyelocytes % Myelocytes % Promyelocytes % Blast Cells % Nucleated RBC % Seg Neutrophils # Man Band Neutrophils # Lymphocytes # (Manual) Abs React Lymphs (Man) Monocytes # (Manual) Eosinophils # (Manual) Basophils # (Manual) Metamyelocytes # Myelocytes # Promyelocytes # Blast Cells # WBC Morphology Hypersegmented Neuts Hyposegmented Neuts Hypogranular Neuts Smudge Cells Toxic Granulation Toxic Vacuolation Dohle Bodies Pelger-Huet Anomaly Bonnie Rods Platelet Estimate Clumped Platelets Plt Clumps, EDTA Large Platelets Giant Platelets Platelet Satelliting Plt Morphology Comment RBC Morphology Dimorphic RBCs Polychromasia Hypochromasia Poikilocytosis Anisocytosis Microcytosis Macrocytosis Spherocytes Pappenheimer Bodies Sickle Cells Target Cells Tear Drop Cells Ovalocytes Helmet Cells [place] Bodies [place] Rings Svetlana Cells Bite Cells Crenated Cell Elliptocytes Acanthocytes (Spur) Rouleaux Hemoglobin C Crystals Schistocytes Malaria parasites Maikel Bodies Hem Pathologist Commnt Sodium Potassium Chloride Carbon Dioxide Anion Gap BUN Creatinine Estimated GFR BUN/Creatinine Ratio Glucose POC Glucose 94 157 H 101 Calcium Medications & Allergies - Medications Allergies/Adverse Reactions: Allergies benazepril Adverse Reaction (Verified 12/08/18 22:44) Angioedema Home Medications: Home Medications Medication Instructions Recorded Confirmed Last Taken Type Omeprazole [PriLOSEC] 20 mg PO QDAY #30 capsule. 02/07/16 12/22/18 11/22/18 Rx 20mg Furosemide [Lasix TAB] 20 mg PO BID 11/23/18 12/22/18 11/22/18 History 40mg Potassium Chloride [Klor-Con M10] 10 meq PO DAILY 11/23/18 12/22/18 11/22/18 History 10meq Umeclidinium Brm/Vilanterol Tr 1 puff IH DAILY 11/23/18 12/22/18 11/22/18 History [Anoro Ellipta 62.5-25 Mcg INH] 25mcg Fulvestrant (Nf) [Faslodex (Nf)] 500 mg IM QMONTH 12/08/18 12/22/18 Unknown History Metformin HCl [Glucophage] 1,000 mg PO BID 12/08/18 12/22/18 Unknown History Palbociclib [Ibrance] 100 mg PO DAILY 12/08/18 12/22/18 Unknown History dilTIAZem CD [Cardizem CD] 120 mg PO QDAY #30 capsule 12/12/18 12/22/18 Unknown Rx Apixaban [Eliquis] 2.5 mg PO BID #60 tablet 12/26/18 Unknown Rx Active Medications: Generic Name Dose Route Start Last Admin Trade Name Freq PRN Reason Stop Dose Admin Acetaminophen 650 mg 12/22/18 17:33 Tylenol PO Q4H PRN Pain MILD(1-3)/Fever >100.5/RANDLE Albuterol/Ipratropium 1 ampul 12/22/18 20:00 12/24/18 20:08 Duoneb *Not For Prn Use* IH 1 ampul QIDRT LOAN Administration Diltiazem HCl 120 mg 12/22/18 18:00 12/24/18 09:06 Cardizem Cd PO 120 mg QDAY LOAN Administration Enoxaparin Sodium 40 mg 12/22/18 22:00 12/24/18 22:01 Lovenox SUB-Q 40 mg QDAY@2200 LOAN Administration Famotidine 20 mg 12/22/18 22:00 12/24/18 22:06 Pepcid PO 20 mg BID [facility] Administration Furosemide 20 mg 12/22/18 22:00 12/24/18 22:07 Lasix PO 20 mg BID [facility] Administration Hydromorphone HCl 0.5 mg 12/22/18 17:33 Dilaudid IV Q3H PRN Pain , Severe (7-10) Insulin Human Lispro 0 unit 12/23/18 07:30 12/25/18 05:01 Humalog SUB-Q Not Given ACHS [facility] Protocol Metformin HCl 1,000 mg 12/22/18 22:00 12/24/18 22:01 Glucophage PO 1,000 mg BID [facility] Administration Miscellaneous Medication 500 mg 12/22/18 17:45 Fulvestrant (Nf) IM QMONTH [facility] Miscellaneous Medication 100 mg 12/22/18 17:45 Palbociclib [Ibrance] PO DAILY [facility] Miscellaneous Medication 1 puff 12/22/18 17:45 Umeclidinium Brm/Vilanterol Tr [Anoro Ellipta 62.5-25 Mcg Inh] IH DAILY [facility] Ondansetron HCl 4 mg 12/22/18 17:33 Zofran IV Q8H PRN Nausea And Vomiting Oxycodone/Acetaminophen 1 tab 12/22/18 17:33 Percocet 5/325 PO Q6H PRN Pain, Moderate (4-6) Pantoprazole Sodium 20 mg 12/22/18 20:30 12/24/18 09:07 Protonix PO 20 mg QDAY [facility] Administration Potassium Chloride 10 meq 12/22/18 18:00 12/24/18 09:07 K-Dur PO 10 meq DAILY [facility] Administration Sodium Chloride 10 ml 12/22/18 22:00 12/24/18 22:00 Sodium Chloride Flush Syringe 10 Ml IV 10 ml BID [facility] Administration Sodium Chloride 10 ml 12/22/18 17:33 Sodium Chloride Flush Syringe 10 Ml IV PRN PRN LINE FLUSH
--- NOTE | 2018-12-25 07:56 | Ultrasound Report ---
ULTRASOUND THORACENTESIS History: Left pleural effusion Description of procedure: Informed consent was obtained. Sterile technique was utilized. 1% lidocaine for skin anesthesia. Using ultrasound guidance, a 5 Palestinian centesis needle was advanced into the left pleural space. There was spontaneous return of bloody fluid. 1.4 L of light fluid was drained. 120 cc of fluid was sent to lab for analysis no complications. Impression: Successful ultrasound-guided left thoracentesis.
[2018-12-25] MEDS: SODIUM CHLORIDE FLUSH SYRINGE 10 ML IV SCH (09:45)
[2018-12-25] MEDS: LASIX PO SCH (09:46)
[2018-12-25] MEDS: GLUCOPHAGE PO SCH ×2 (09:46→23:13)
[2018-12-25] MEDS: PEPCID PO SCH ×2 (09:47→23:15)
[2018-12-25] MEDS: K-DUR PO SCH (09:47)
[2018-12-25] MEDS: CARDIZEM CD PO SCH (09:47)
[2018-12-25] MEDS: PROTONIX PO SCH (09:47)
[2018-12-25] MEDS: DUONEB *Not for PRN Use IH SCH ×4 (09:55→20:05)
--- NOTE | 2018-12-25 10:20 | Progress Note ---
Assessment and Plan (1) Recurrent left pleural effusion (2) COPD (chronic obstructive pulmonary disease) (3) Metastatic breast cancer (4) Lower extremity DVT (deep venous thrombosis) (5) Type 2 diabetes mellitus (6) Hypertension (7) Depression -Continue supplemental oxygen to keep O2 sats>90% -Chronic home medications -Bronchodilators -PT/OT, increase activity -Anticoagulation to resume -Discussed with hospitalist service if there in any further re-accumulation of pleural fluid, she will need an indwelling pleural drain with intermittent drainage Discharge planning Oxygen safety discussed with the patient. 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 No diarrhea or vomiting Objective - Exam Narrative Exam: Lying in bed in nodistress General appearance: Present: no acute distress, well-nourished - EENT Eyes: Present: PERRL, EOM intact - Neck Neck: Present: supple, normal ROM - Respiratory Respiratory effort: normal Respiratory: bilateral: diminished (left more than right ), rhonchi, negative: rales, wheezing - Cardiovascular Rhythm: regular Heart Sounds: Present: S1 & S2 - Extremities Extremities: no ischemia, No edema - Abdominal General gastrointestinal: soft, non-tender, non-distended, normal bowel sounds - Integumentary Integumentary: Present: clear, warm - Psychiatric Psychiatric: appropriate mood/affect, cooperative - Neurologic Neurologic: CNII-XII intact, moves all extremities Vital Signs - 12hr 12/25/18 12/25/18 12/25/18 02:31 07:00 07:42 Temperature 98.8 F 98.2 F Pulse Rate 68 75 Pulse Rate [ 75 Apical] Respiratory 20 20 20 Rate Blood Pressure 95/47 72/39 Blood Pressure [Right] O2 Sat by Pulse 95 94 94 Oximetry 12/25/18 12/25/18 09:41 09:49 Temperature Pulse Rate 77 73 Pulse Rate [ Apical] Respiratory Rate Blood Pressure 82/45 Blood Pressure 115/63 [Right] O2 Sat by Pulse 96 Oximetry Constitutional: no acute distress, alert Eyes: non-icteric ENT: oropharynx moist Neck: supple, no JVD Ascultation: Bilateral: diminished breath sounds (left base) Cardiovascular: regular rate and rhythm Gastrointestinal: normoactive bowel sounds, soft, non-tender Integumentary: normal Extremities: no cyanosis, no edema Neurologic: normal mental status, non-focal exam, pupils equal and round, CN II- XII normal Psychiatric: mood appropriate CBC and BMP: 12/24/18 05:48 12/24/18 05:48 ABG, PT/INR, D-dimer: PT/INR, D-dimer PT 12.9 Sec. (12.2-14.9) 12/22/18 13:23 INR 0.92 (0.87-1.13) 12/22/18 13:23 Abnormal lab findings: Abnormal Labs 12/22/18 12/22/18 12/22/18 13:23 13:23 13:59 WBC 3.0 L RBC RDW 23.5 H Seg Neuts % (Manual) 72.0 H Lymphocytes % (Manual) Lymphocytes # (Manual) 0.7 L APTT 23.9 L Glucose 117 H POC Glucose Total Protein Albumin 3.6 L 12/22/18 12/23/18 12/23/18 21:57 04:08 04:08 WBC 3.3 L RBC 3.57 L RDW 23.0 H Seg Neuts % (Manual) 87.0 H Lymphocytes % (Manual) 13.0 L Lymphocytes # (Manual) 0.4 L APTT Glucose 106 H POC Glucose 247 H Total Protein 6.0 L Albumin 3.5 L 12/23/18 12/23/18 12/23/18 07:20 11:35 22:23 WBC RBC RDW Seg Neuts % (Manual) Lymphocytes % (Manual) Lymphocytes # (Manual) APTT Glucose POC Glucose 110 H 109 H 134 H Total Protein Albumin 12/24/18 12/24/18 12/24/18 05:48 05:48 16:27 WBC RBC RDW 23.5 H Seg Neuts % (Manual) Lymphocytes % (Manual) Lymphocytes # (Manual) APTT Glucose 110 H POC Glucose 157 H Total Protein Albumin Chest x-ray: image reviewed
--- NOTE | 2018-12-25 11:14 | Progress Note ---
Assessment and Plan Assessment and plan: (1) Recurrent left pleural effusion Current Visit: Yes Status: Acute Plan to address problem: Left pleural effusion s/p thoracentesis 1400 mL pleural fluid removed, tolerated the procedure well Pleural fluid sent for histopathology Pulmonary following (2) Metastatic breast cancer Current Visit: Yes Status: Chronic Plan to address problem: Patient on chemotherapy, oncology following (3) COPD (chronic obstructive pulmonary disease) Current Visit: Yes Status: Chronic Qualifiers: Emphysema type: unspecified Plan to address problem: Continue duo nebs and oxygen (4) Type 2 diabetes mellitus Current Visit: Yes Status: Chronic Qualifiers: Diabetes mellitus jail insulin use: without jail use Plan to address problem: Continue coverage and check hemoglobin A1c 5.2 (5) Hypertension Current Visit: Yes Status: Chronic Qualifiers: Hypertension type: essential hypertension Qualified Code(s): I10 - Essential (primary) hypertension Plan to address problem: Continue antihypertensives (6) Depression Current Visit: Yes Status: Chronic Plan to address problem: Continue antidepressants (7) DVT (deep venous thrombosis) Current Visit: Yes Status: Chronic Qualifiers: DVT location: lower extremity Plan to address problem: We will hold the Eliquis for now (8) DVT prophylaxis Current Visit: Yes Status: Acute Plan to address problem: Lovenox initiated and GI prophylaxis History Interval history: Patient seen and examined medical records reviewed No new events reported by the nursing The patient is alert awake oriented 3 Not no acute distress Vital signs noted Hospitalist Physical - Constitutional Vitals: Temp Pulse Resp BP Pulse Ox 98.2 F 75 20 115/63 94 12/25/18 07:42 12/25/18 10:00 12/25/18 10:00 12/25/18 09:49 12/25/18 10:00 General appearance: Present: no acute distress, well-nourished - EENT Eyes: Present: PERRL, EOM intact - Neck Neck: Present: supple, normal ROM - Respiratory Respiratory effort: normal Respiratory: bilateral: diminished, negative: rales, rhonchi, wheezing - Cardiovascular Rhythm: regular Heart Sounds: Present: S1 & S2 - Extremities Extremities: no ischemia, pulses intact Peripheral Pulses: within normal limits - Abdominal General gastrointestinal: soft, non-tender, non-distended, normal bowel sounds - Integumentary Integumentary: Present: clear, warm - Psychiatric Psychiatric: appropriate mood/affect, cooperative - Neurologic Neurologic: CNII-XII intact, moves all extremities Results - Labs CBC & Chem 7: 12/24/18 05:48 12/24/18 05:48 Labs: Laboratory Last Values WBC 4.5 K/mm3 (4.5-11.0) 12/24/18 05:48 RBC 3.66 M/mm3 (3.65-5.03) 12/24/18 05:48 Hgb 10.7 gm/dl (10.1-14.3) 12/24/18 05:48 Hct 32.1 % (30.3-42.9) 12/24/18 05:48 MCV 88 fl (79-97) 12/24/18 05:48 MCH 29 pg (28-32) 12/24/18 05:48 MCHC 33 % (30-34) 12/24/18 05:48 RDW 23.5 % (13.2-15.2) H 12/24/18 05:48 Plt Count 286 K/mm3 (140-440) 12/24/18 05:48 Add Manual Diff Complete 12/24/18 05:48 Total Counted 100 12/24/18 05:48 Seg Neuts % (Manual) 61.0 % (40.0-70.0) 12/24/18 05:48 Band Neutrophils % 0 % 12/24/18 05:48 Lymphocytes % (Manual) 32.0 % (13.4-35.0) 12/24/18 05:48 Reactive Lymphs % (Man) 0 % 12/24/18 05:48 Monocytes % (Manual) 7.0 % (0.0-7.3) 12/24/18 05:48 Eosinophils % (Manual) 0 % (0.0-4.3) 12/24/18 05:48 Basophils % (Manual) 0 % (0.0-1.8) 12/24/18 05:48 Metamyelocytes % 0 % 12/24/18 05:48 Myelocytes % 0 % 12/24/18 05:48 Promyelocytes % 0 % 12/24/18 05:48 Blast Cells % 0 % 12/24/18 05:48 Nucleated RBC % Not Reportable 12/24/18 05:48 Seg Neutrophils # Man 2.7 K/mm3 (1.8-7.7) 12/24/18 05:48 Band Neutrophils # 0.0 K/mm3 12/24/18 05:48 Lymphocytes # (Manual) 1.4 K/mm3 (1.2-5.4) 12/24/18 05:48 Abs React Lymphs (Man) 0.0 K/mm3 12/24/18 05:48 Monocytes # (Manual) 0.3 K/mm3 (0.0-0.8) 12/24/18 05:48 Eosinophils # (Manual) 0.0 K/mm3 (0.0-0.4) 12/24/18 05:48 Basophils # (Manual) 0.0 K/mm3 (0.0-0.1) 12/24/18 05:48 Metamyelocytes # 0.0 K/mm3 12/24/18 05:48 Myelocytes # 0.0 K/mm3 12/24/18 05:48 Promyelocytes # 0.0 K/mm3 12/24/18 05:48 Blast Cells # 0.0 K/mm3 12/24/18 05:48 WBC Morphology Not Reportable 12/24/18 05:48 Hypersegmented Neuts Not Reportable 12/24/18 05:48 Hyposegmented Neuts Not Reportable 12/24/18 05:48 Hypogranular Neuts Not Reportable 12/24/18 05:48 Smudge Cells Not Reportable 12/24/18 05:48 Toxic Granulation Not Reportable 12/24/18 05:48 Toxic Vacuolation Not Reportable 12/24/18 05:48 Dohle Bodies Not Reportable 12/24/18 05:48 Pelger-Huet Anomaly Not Reportable 12/24/18 05:48 Bonnie Rods Not Reportable 12/24/18 05:48 Platelet Estimate Consistent w auto 12/24/18 05:48 Clumped Platelets Not Reportable 12/24/18 05:48 Plt Clumps, EDTA Not Reportable 12/24/18 05:48 Large Platelets Not Reportable 12/24/18 05:48 Giant Platelets Not Reportable 12/24/18 05:48 Platelet Satelliting Not Reportable 12/24/18 05:48 Plt Morphology Comment Not Reportable 12/24/18 05:48 RBC Morphology Not Reportable 12/24/18 05:48 Dimorphic RBCs Not Reportable 12/24/18 05:48 Polychromasia Not Reportable 12/24/18 05:48 Hypochromasia Not Reportable 12/24/18 05:48 Poikilocytosis 1+ 12/24/18 05:48 Anisocytosis 1+ 12/24/18 05:48 Microcytosis Not Reportable 12/24/18 05:48 Macrocytosis Not Reportable 12/24/18 05:48 Spherocytes Not Reportable 12/24/18 05:48 Pappenheimer Bodies Not Reportable 12/24/18 05:48 Sickle Cells Not Reportable 12/24/18 05:48 Target Cells Not Reportable 12/24/18 05:48 Tear Drop Cells Not Reportable 12/24/18 05:48 Ovalocytes Rare 12/24/18 05:48 Helmet Cells Not Reportable 12/24/18 05:48 [place] Bodies Not Reportable 12/24/18 05:48 [place] Rings Not Reportable 12/24/18 05:48 Svetlana Cells Not Reportable 12/24/18 05:48 Bite Cells Not Reportable 12/24/18 05:48 Crenated Cell Not Reportable 12/24/18 05:48 Elliptocytes Rare 12/24/18 05:48 Acanthocytes (Spur) Not Reportable 12/24/18 05:48 Rouleaux Not Reportable 12/24/18 05:48 Hemoglobin C Crystals Not Reportable 12/24/18 05:48 Schistocytes Not Reportable 12/24/18 05:48 Malaria parasites Not Reportable 12/24/18 05:48 Maikel Bodies Not Reportable 12/24/18 05:48 Hem Pathologist Commnt No 12/24/18 05:48 PT 12.9 Sec. (12.2-14.9) 12/22/18 13:23 INR 0.92 (0.87-1.13) 12/22/18 13:23 APTT 23.9 Sec. (24.2-36.6) L 12/22/18 13:23 Sodium 145 mmol/L (137-145) 12/24/18 05:48 Potassium 4.6 mmol/L (3.6-5.0) 12/24/18 05:48 Chloride 100.3 mmol/L (98-107) 12/24/18 05:48 Carbon Dioxide 30 mmol/L (22-30) D 12/24/18 05:48 Anion Gap 19 mmol/L 12/24/18 05:48 BUN 14 mg/dL (7-17) 12/24/18 05:48 Creatinine 1.0 mg/dL (0.7-1.2) 12/24/18 05:48 Estimated GFR > 60 ml/min 12/24/18 05:48 BUN/Creatinine Ratio 14 % 12/24/18 05:48 Glucose 110 mg/dL (65-100) H 12/24/18 05:48 POC Glucose 81 (70-105) 12/25/18 07:26 Calcium 8.7 mg/dL (8.4-10.2) 12/24/18 05:48 Total Bilirubin 0.20 mg/dL (0.1-1.2) 12/23/18 04:08 AST 16 units/L (5-40) 12/23/18 04:08 ALT 11 units/L (7-56) 12/23/18 04:08 Alkaline Phosphatase 56 units/L (35-129) 12/23/18 04:08 NT-Pro-B Natriuret Pep 68.16 pg/mL (0-900) 12/22/18 13:59 Total Protein 6.0 g/dL (6.3-8.2) L 12/23/18 04:08 Albumin 3.5 g/dL (3.9-5) L 12/23/18 04:08 Albumin/Globulin Ratio 1.4 % 12/23/18 04:08 Fluid Type Pleural 12/22/18 Unknown Fluid Color Bloody 12/22/18 Unknown Fluid Appearance Bloody 12/22/18 Unknown Fluid WBC 253 /mm3 12/22/18 Unknown Fluid RBC 62331 /mm3 12/22/18 Unknown Fluid Seg Neutrophils 0 % 12/22/18 Unknown Fluid Lymphocytes 3.0 % 12/22/18 Unknown Fluid Reactive Lymphs 0 % 12/22/18 Unknown Fluid Monocytes 97.0 % 12/22/18 Unknown Fluid Eosinophils 0 % 12/22/18 Unknown Fluid Basophils 0 % 12/22/18 Unknown Active Medications - Current Medications Current Medications: Generic Name Dose Route Start Last Admin Trade Name Freq PRN Reason Stop Dose Admin Acetaminophen 650 mg 12/22/18 17:33 Tylenol PO Q4H PRN Pain MILD(1-3)/Fever >100.5/RANDLE Albuterol/Ipratropium 1 ampul 12/22/18 20:00 12/25/18 09:55 Duoneb *Not For Prn Use* IH 1 ampul QIDRT [facility] Administration Diltiazem HCl 120 mg 12/22/18 18:00 12/25/18 09:47 Cardizem Cd PO Not Given QDAY LOAN Enoxaparin Sodium 40 mg 12/22/18 22:00 12/24/18 22:01 Lovenox SUB-Q 40 mg QDAY@2200 LOAN Administration Famotidine 20 mg 12/22/18 22:00 12/25/18 09:47 Pepcid PO 20 mg BID LOAN Administration Furosemide 20 mg 12/22/18 22:00 12/25/18 09:46 Lasix PO 20 mg BID [facility] Administration Hydromorphone HCl 0.5 mg 12/22/18 17:33 Dilaudid IV Q3H PRN Pain , Severe (7-10) Insulin Human Lispro 0 unit 12/23/18 07:30 12/25/18 08:00 Humalog SUB-Q Not Given [facility] Protocol Metformin HCl 1,000 mg 12/22/18 22:00 12/25/18 09:46 Glucophage PO 1,000 mg BID [facility] Administration Miscellaneous Medication 500 mg 12/22/18 17:45 Fulvestrant (Nf) IM QMONTH [facility] Miscellaneous Medication 100 mg 12/22/18 17:45 Palbociclib [Ibrance] PO DAILY [facility] Miscellaneous Medication 1 puff 12/22/18 17:45 Umeclidinium Brm/Vilanterol Tr [Anoro Ellipta 62.5-25 Mcg Inh] IH DAILY [facility] Ondansetron HCl 4 mg 12/22/18 17:33 Zofran IV Q8H PRN Nausea And Vomiting Oxycodone/Acetaminophen 1 tab 12/22/18 17:33 Percocet 5/325 PO Q6H PRN Pain, Moderate (4-6) Pantoprazole Sodium 20 mg 12/22/18 20:30 12/25/18 09:47 Protonix PO 20 mg QDAY [facility] Administration Potassium Chloride 10 meq 12/22/18 18:00 12/25/18 09:47 K-Dur PO 10 meq DAILY LOAN Administration Sodium Chloride 10 ml 12/22/18 22:00 12/25/18 09:45 Sodium Chloride Flush Syringe 10 Ml IV 10 ml BID LOAN Administration Sodium Chloride 10 ml 12/22/18 17:33 Sodium Chloride Flush Syringe 10 Ml IV PRN PRN LINE FLUSH
--- NOTE | 2018-12-25 11:17 | Vascular Lab Report ---
PROCEDURE: VL VENOUS DUPLEX LE BILAT TECHNIQUE: Duplex Doppler ultrasound of the veins of the bilateral lower extremities was performed HISTORY: h/o leg dvt - pt on eliquis COMPARISONS: None. FINDINGS: The veins of the right lower extremity are patent, compressible, demonstrate normal waveforms and aug mentation. The veins of the left lower extremity are patent, compressible, demonstrate normal waveforms and augm entation. IMPRESSION: No evidence of deep venous thrombosis of the bilateral lower extremities. This document is electronically signed by Erin Perez MD., December 25 2018 11:15:50 AM ET
[2018-12-25] MEDS: LOVENOX SUB-Q SCH (23:22)
[2018-12-26] MEDS: DUONEB *Not for PRN Use IH SCH ×2 (08:06→12:41)
[2018-12-26] MEDS: GLUCOPHAGE PO SCH (09:32)
[2018-12-26] MEDS: SODIUM CHLORIDE FLUSH SYRINGE 10 ML IV SCH (09:32)
[2018-12-26] MEDS: PEPCID PO SCH (09:32)
[2018-12-26] MEDS: CARDIZEM CD PO SCH (09:32)
[2018-12-26] MEDS: LASIX PO SCH (09:32)
[2018-12-26] MEDS: PROTONIX PO SCH (09:32)
[2018-12-26] MEDS: K-DUR PO SCH (09:32)
[2018-12-26] MEDS: HumaLOG SUB-Q SCH (09:33)
[2018-12-26] MEDS ORDERED: DUONEB *Not for PRN Use IH SCH (14:00)
[2018-12-26 14:42] VITALS: BP 108/65
--- NOTE | 2018-12-26 14:47 | Discharge Summary ---
Providers - Providers Date of Admission: 12/22/18 15:56 Date of discharge: 12/26/18 Attending physician: RAINER BRUCE 12/22/18 17:33 Consult to Physician [CONS] Routine Comment: Consulting Provider: LIONEL ALFRED Physician Instructions: Reason For Exam: right pleural effusion 12/22/18 22:27 Consult to Physician [CONS] Routine Comment: Consulting Provider: SAMI GIBBONS Physician Instructions: Reason For Exam: breast cancer 12/23/18 02:39 Physical Therapy Evaluation and Treat [CONS] Routine Comment: Reason For Exam: Gait stablility per [facility] unit protocol Mode of Transport?: Cane Weight bearing status?: Full wt bearing Assistive devices?: Yes Primary care physician: BENCH INSPECTOR Hospitalization Reason for admission: worsening shortness of breath of 1 day duration Condition: Fair Pertinent studies: Chest x-ray upon admission; moderate left pleural effusion reaccumulated since 0 12/10/2018 Past paracentesis chest x-ray on 12/24/2018; small left pleural effusion and no pneumothorax Procedures: Ultrasound-guided paracentesis left; removal of 1.4 L pleural fluid Hospital course: Very pleasant 68-year-old female patient with significant past medical history of breast cancer recurrent pleural effusion with multiple paracentesis in the past was admitted through emergency room with worsening shortness of breath of one day duration, Initial evaluation was consistent with moderate to large left pleural effusion Evaluated by pulmonary, hematology oncology, Patient underwent ultrasound-guided thoracentesis and removal of 1.4 L of pleural fluid Which was clear, Patient's symptoms slowly but gradually improved, Patient is on Eliquis for her history of DVT, Venous Doppler lower extremity is negative during this admission Corn Husk Baler recommended 2.5 mg of Eliquis twice a day upon discharge The patient is hemodynamically and clinically stable for discharge Cleared by pulmonary and oncologist, Pt is stable at discharge Discharge diagnosis; -- Recurrent left pleural effusion Left pleural effusion s/p thoracentesis 1400 mL pleural fluid removed, tolerated the procedure well Pleural fluid sent for histopathology Pulmonary following -- Metastatic breast cancer Patient on chemotherapy, oncology following --COPD (chronic obstructive pulmonary disease) Continue duo nebs and oxygen --Type 2 diabetes mellitus Continue coverage and check hemoglobin A1c 5.2 --Hypertension Continue antihypertensives -- Depression Continue antidepressants -- DVT (deep venous thrombosis) Venous Doppler during this admission negative for DVT Hematology recommend 2.5 mg Eliquis bid Disposition: DC-01 TO HOME OR SELFCARE Time spent for discharge: 32 min Core Measure Documentation - Palliative Care Palliative Care/ Comfort Measures: Not Applicable - Core Measures Any of the following diagnoses?: none Exam - Constitutional Vitals: Temp Pulse Resp BP Pulse Ox 97.8 F 98 H 20 108/65 97 12/26/18 13:10 12/26/18 13:10 12/26/18 13:10 12/26/18 13:10 12/26/18 13:10 General appearance: Present: no acute distress, well-nourished - EENT Eyes: Present: PERRL, EOM intact - Neck Neck: Present: supple, normal ROM - Respiratory Respiratory effort: normal Respiratory: bilateral: diminished, negative: rales, rhonchi, wheezing - Cardiovascular Rhythm: regular Heart Sounds: Present: S1 & S2 - Extremities Extremities: no ischemia, No edema - Abdominal General gastrointestinal: Present: soft, non-tender, non-distended, normal bowel sounds - Integumentary Integumentary: Present: clear, warm - Musculoskeletal Musculoskeletal: strength equal bilaterally - Psychiatric Psychiatric: appropriate mood/affect, cooperative - Neurologic Neurologic: CNII-XII intact, moves all extremities Plan Activity: advance as tolerated, fall precautions Diet: other (cardiac diet) Additional Instructions: Continue home oxygen as needed Follow up with: PRIMARY CARE, [Primary Care Provider] - 3-5 Days SAMI GIBBONS MD [Staff Physician] - 7 Days LIONEL ALFRED MD [Staff Physician] - 7 Days Prescriptions: Apixaban [Eliquis] 2.5 mg PO BID #60 tablet
== END 2018-12-26 15:45 | disposition home health service (06) | DRG 598 ==
LOC: ED 13:04 → 2B-ACE 15:56
PROVIDERS: ADMIT Internal Medicine; ATTEND Internal Medicine
PROC: 0W9B3ZZ Drainage of Left Pleural Cavity, Percutaneous Approach (ICD-10-PCS; principal; 2018-12-22)
DX: C50.912 Malignant neoplasm of unspecified site of left female breast (principal); J91.0 Malignant pleural effusion; J44.9 Chronic obstructive pulmonary disease, unspecified; F32.9 Major depressive disorder, single episode, unspecified; E11.9 Type 2 diabetes mellitus without complications; D64.9 Anemia, unspecified; I11.0 Hypertensive heart disease with heart failure; I50.9 Heart failure, unspecified; K21.9 Gastro-esophageal reflux disease without esophagitis; Z90.710 Acquired absence of both cervix and uterus; Z90.49 Acquired absence of other specified parts of digestive tract; Z86.718 Personal history of other venous thrombosis and embolism; Z79.01 Long term (current) use of anticoagulants; Z82.49 Family history of ischemic heart disease and other diseases of the circulatory system
CPT/HCPCS: 32555; 36415; 71045; 71046; 80048; 80053; 82962; 83880; 85007; 85025; 85610; 85730; 87116; 88112; 88305; 89051; 93005; 93010; 93970; 94640; 94760; G0378; J1650

== ENCOUNTER 2019-05-05 11:54 | Inpatient (IN) | payer MEDICARE ==
--- NOTE | 2019-05-05 12:13 | Emergency Department Report ---
Blank Doc - Documentation Documentation: This is a 68-year-old female that presents with SOB. HX of lung cancer. Fabi ent is on 3L of oxygen. This initial assessment/diagnostic orders/clinical plan/treatment(s) is/are subject to change based on patient's health status, clinical progression and re- assessment by fellow clinical providers in the ED. Further treatment and workup at subsequent clinical providers discretion. Patient/guardians urged not to elope from the ED as their condition may be serious if not clinically assessed and managed. Initial orders include: 1- Patient sent to MAIN ED for further evaluation and treatment 2- labs 3- EKG
--- NOTE | 2019-05-05 12:45 | XRay Report ---
CHEST 1 VIEW INDICATION: Dyspnea. COMPARISON: AP chest report dated 01/16/2019 FINDINGS: Support devices: Right subclavian [id number] tubing terminates in the right atrium. Heart: Mild cardiomegaly. Lungs/Pleura: Mild pulmonary venous congestion. Moderate left pleural effusion which compresses the l eft lung base. No pneumothorax. There appears to be a left chest tube terminating just below the left hilum within the left pleural fluid collection. Additional findings: None. IMPRESSION: Mild CHF. Signer Name: Edmar Reid Jr, MD Signed: 05/05/2019 12:41 PM Workstation Name: [id number]
[2019-05-05 13:01] LABS: Hemoglobin 8.7 gm/dl (10.1-14.3); Mean Corpuscular HGB Conc 31 % (30-34); Mean Corpuscular Volume 78 fl (79-97); Platelet Count 336 K/mm3 (140-440); Red Blood Count 3.58 M/mm3 (3.65-5.03)
[2019-05-05 13:04] LABS: Red Cell Distribution Width 27.7 % (13.2-15.2)
[2019-05-05 13:12] LABS: INR 1.27 (0.87-1.13)
[2019-05-05 13:13] LABS: Partial Thromboplastin Time 26.4 Sec. (24.2-36.6)
--- NOTE | 2019-05-05 14:37 | Emergency Department Report ---
ED General Adult HPI - General Chief complaint: Dyspnea/Respdistress Stated complaint: BP LOW/CANCER PATIENT/FAST BREATHING Time Seen by Provider: 05/05/19 12:09 Source: patient Mode of arrival: Ambulatory Limitations: No Limitations - History of Present Illness Initial comments: She presents to the emergency department with a chief complaint of increased bilateral leg swelling and shortness of breath. Patient states that she has a history of congestive heart failure and currently takes Lasix. She was seen by the home health care nurse this morning and the patient has had a 10 pound weight gain in the last 2-3 days. Proventil disorder the patient is only taking the Lasix once a day. Patient states she also has a port for draining of fluid from around her lungs that she does every Friday. -: Gradual Severity scale (0 -10): 0 Consistency: constant Improves with: none Worsens with: none Associated Symptoms: denies other symptoms Treatments Prior to Arrival: none - Related Data Home Medications Medication Instructions Recorded Confirmed Last Taken Furosemide [Lasix TAB] 20 mg PO BID 11/23/18 01/12/19 11/22/18 40mg Potassium Chloride [Klor-Con M10] 10 meq PO DAILY 11/23/18 01/12/19 11/22/18 10meq Metformin HCl [Glucophage] 1,000 mg PO BID 12/08/18 01/12/19 Unknown Apixaban [Eliquis] 2.5 mg PO BID 05/05/19 05/05/19 Unknown Ergocalciferol [Vitamin D2] 1 cap PO QWEEK 05/05/19 05/05/19 Unknown Loratadine [Allergy Relief] 10 mg PO QDAY 05/05/19 05/05/19 Unknown Meclizine [Antivert] 25 mg PO TID PRN 05/05/19 05/05/19 Unknown Omeprazole 20 mg PO QDAC 05/05/19 05/05/19 Unknown Allergies Allergy/AdvReac Type Severity Reaction Status Date / Time benazepril AdvReac Angioedema Verified 05/05/19 11:58 ED Review of Systems ROS: Stated complaint: BP LOW/CANCER PATIENT/FAST BREATHING Other details as noted in HPI Constitutional: denies: chills, fever Eyes: denies: eye pain, eye discharge, vision change ENT: denies: ear pain, throat pain Respiratory: shortness of breath. denies: cough, wheezing Cardiovascular: denies: chest pain, palpitations Endocrine: no symptoms reported Gastrointestinal: denies: abdominal pain, nausea, diarrhea Genitourinary: denies: urgency, dysuria, discharge Musculoskeletal: denies: back pain, joint swelling, arthralgia Skin: denies: rash, lesions Neurological: denies: headache, weakness, paresthesias Psychiatric: denies: anxiety, depression Hematological/Lymphatic: denies: easy bleeding, easy bruising ED Past Medical Hx - Past Medical History Previous Medical History?: Yes Hx Hypertension: Yes Hx Heart Attack/AMI: No Hx Congestive Heart Failure: Yes Hx Diabetes: Yes Hx Deep Vein Thrombosis: Yes (R leg) Hx GERD: Yes Hx Liver Disease: No Hx Arthritis: Yes Hx Seizures: No Hx Psychiatric Treatment: Yes (depression) Hx Asthma: Yes Hx COPD: Yes (O2 @ home PRN) Hx HIV: No Additional medical history: Breast Cancer- Received chemo on 03/05/16. anemia. high cholesterol. DVT - Surgical History Past Surgical History?: Yes Hx Appendectomy: Yes Additional Surgical History: Port Placement to right chest. Hyst. Left knee surgery. sinus surgery. tonsillectomy - Social History Smoking Status: Never Smoker Substance Use Type: None - Medications Home Medications: Home Medications Medication Instructions Recorded Confirmed Last Taken Type Furosemide [Lasix TAB] 20 mg PO BID 11/23/18 01/12/19 11/22/18 History 40mg Potassium Chloride [Klor-Con M10] 10 meq PO DAILY 11/23/18 01/12/19 11/22/18 History 10meq Metformin HCl [Glucophage] 1,000 mg PO BID 12/08/18 01/12/19 Unknown History Apixaban [Eliquis] 2.5 mg PO BID 05/05/19 05/05/19 Unknown History Ergocalciferol [Vitamin D2] 1 cap PO QWEEK 05/05/19 05/05/19 Unknown History Loratadine [Allergy Relief] 10 mg PO QDAY 05/05/19 05/05/19 Unknown History Meclizine [Antivert] 25 mg PO TID PRN 05/05/19 05/05/19 Unknown History Omeprazole 20 mg PO QDAC 05/05/19 05/05/19 Unknown History ED Physical Exam - General Limitations: No Limitations General appearance: alert, in no apparent distress - Head Head exam: Present: atraumatic, normocephalic - Eye Eye exam: Present: normal appearance, PERRL, EOMI - ENT ENT exam: Present: mucous membranes moist - Neck Neck exam: Present: normal inspection - Respiratory Respiratory exam: Present: rales, other (is a pigtail catheter in place of the left chest wall). Absent: respiratory distress - Cardiovascular Cardiovascular Exam: Present: regular rate, normal rhythm. Absent: systolic murmur, diastolic murmur, rubs, gallop - GI/Abdominal GI/Abdominal exam: Present: soft, normal bowel sounds. Absent: distended, tenderness - Extremities Exam Extremities exam: Present: other (B/L pitting edema) - Back Exam Back exam: Present: normal inspection - Neurological Exam Neurological exam: Present: alert, oriented X3, CN II-XII intact. Absent: motor sensory deficit - Psychiatric Psychiatric exam: Present: normal affect, normal mood - Skin Skin exam: Present: warm, dry, intact, normal color. Absent: rash ED Course Vital Signs 05/05/19 05/05/19 05/05/19 12:10 12:32 12:33 Temperature 97.9 F Pulse Rate 89 87 Respiratory 22 21 21 Rate Blood Pressure 124/84 O2 Sat by Pulse 97 98 98 Oximetry ED Medical Decision Making - Lab Data Result diagrams: 05/05/19 12:45 05/05/19 12:45 Lab Results 05/05/19 05/05/19 05/05/19 Range/Units 12:45 12:45 12:45 WBC 13.4 H (4.5-11.0) K/mm3 RBC 3.58 L (3.65-5.03) M/mm3 Hgb 8.7 L (10.1-14.3) gm/dl Hct 28.0 L (30.3-42.9) % MCV 78 L (79-97) fl MCH 24 L (28-32) pg MCHC 31 (30-34) % RDW 27.7 H (13.2-15.2) % Plt Count 336 (140-440) K/mm3 Add Manual Diff Complete Total Counted 100 Seg Neuts % (Manual) 94.0 H (40.0-70.0) % Band Neutrophils % 0 % Lymphocytes % (Manual) 4.0 L (13.4-35.0) % Reactive Lymphs % (Man) 0 % Monocytes % (Manual) 1.0 (0.0-7.3) % Eosinophils % (Manual) 0 (0.0-4.3) % Basophils % (Manual) 0 (0.0-1.8) % Metamyelocytes % 1.0 % Myelocytes % 0 % Promyelocytes % 0 % Blast Cells % 0 % Nucleated RBC % Not Reportable Seg Neutrophils # Man 12.6 H (1.8-7.7) K/mm3 Band Neutrophils # 0.0 K/mm3 Lymphocytes # (Manual) 0.5 L (1.2-5.4) K/mm3 Abs React Lymphs (Man) 0.0 K/mm3 Monocytes # (Manual) 0.1 (0.0-0.8) K/mm3 Eosinophils # (Manual) 0.0 (0.0-0.4) K/mm3 Basophils # (Manual) 0.0 (0.0-0.1) K/mm3 Metamyelocytes # 0.1 K/mm3 Myelocytes # 0.0 K/mm3 Promyelocytes # 0.0 K/mm3 Blast Cells # 0.0 K/mm3 WBC Morphology Not Reportable Hypersegmented Neuts Not Reportable Hyposegmented Neuts Not Reportable Hypogranular Neuts Not Reportable Smudge Cells Not Reportable Toxic Granulation Not Reportable Toxic Vacuolation Not Reportable Dohle Bodies Not Reportable Pelger-Huet Anomaly Not Reportable Bonnie Rods Not Reportable Platelet Estimate Consistent w auto Clumped Platelets Not Reportable Plt Clumps, EDTA Not Reportable Large Platelets Not Reportable Giant Platelets Not Reportable Platelet Satelliting Not Reportable Plt Morphology Comment Not Reportable RBC Morphology Not Reportable Dimorphic RBCs Not Reportable Polychromasia Few Hypochromasia Not Reportable Poikilocytosis Not Reportable Anisocytosis 3+ Microcytosis 1+ Macrocytosis Not Reportable Spherocytes Not Reportable Pappenheimer Bodies Not Reportable Sickle Cells Not Reportable Target Cells Not Reportable Tear Drop Cells Not Reportable Ovalocytes Few Helmet Cells Not Reportable [place] Bodies Not Reportable [place] Rings Not Reportable Golden Cells Not Reportable Bite Cells Not Reportable Crenated Cell Not Reportable Elliptocytes Not Reportable Acanthocytes (Spur) Not Reportable Rouleaux Not Reportable Hemoglobin C Crystals Not Reportable Schistocytes Not Reportable Malaria parasites Not Reportable Maikel Bodies Not Reportable Hem Pathologist Commnt No PT 15.6 H (12.2-14.9) Sec. INR 1.27 H (0.87-1.13) APTT 26.4 (24.2-36.6) Sec. Sodium 144 (137-145) mmol/L Potassium 5.0 (3.6-5.0) mmol/L Chloride 104.5 (98-107) mmol/L Carbon Dioxide 25 (22-30) mmol/L Anion Gap 20 mmol/L BUN 20 H (7-17) mg/dL Creatinine 0.9 (0.7-1.2) mg/dL Estimated GFR > 60 ml/min BUN/Creatinine Ratio 22 % Glucose 94 (65-100) mg/dL Calcium 9.2 (8.4-10.2) mg/dL Total Bilirubin 0.20 (0.1-1.2) mg/dL AST 34 (5-40) units/L ALT 27 (7-56) units/L Alkaline Phosphatase 76 (35-129) units/L Troponin T < 0.010 (0.00-0.029) ng/mL NT-Pro-B Natriuret Pep (0-900) pg/mL Total Protein 6.6 (6.3-8.2) g/dL Albumin 3.5 L (3.9-5) g/dL Albumin/Globulin Ratio 1.1 % 05/05/19 Range/Units 12:45 WBC (4.5-11.0) K/mm3 RBC (3.65-5.03) M/mm3 Hgb (10.1-14.3) gm/dl Hct (30.3-42.9) % MCV (79-97) fl MCH (28-32) pg MCHC (30-34) % RDW (13.2-15.2) % Plt Count (140-440) K/mm3 Add Manual Diff Total Counted Seg Neuts % (Manual) (40.0-70.0) % Band Neutrophils % % Lymphocytes % (Manual) (13.4-35.0) % Reactive Lymphs % (Man) % Monocytes % (Manual) (0.0-7.3) % Eosinophils % (Manual) (0.0-4.3) % Basophils % (Manual) (0.0-1.8) % Metamyelocytes % % Myelocytes % % Promyelocytes % % Blast Cells % % Nucleated RBC % Seg Neutrophils # Man (1.8-7.7) K/mm3 Band Neutrophils # K/mm3 Lymphocytes # (Manual) (1.2-5.4) K/mm3 Abs React Lymphs (Man) K/mm3 Monocytes # (Manual) (0.0-0.8) K/mm3 Eosinophils # (Manual) (0.0-0.4) K/mm3 Basophils # (Manual) (0.0-0.1) K/mm3 Metamyelocytes # K/mm3 Myelocytes # K/mm3 Promyelocytes # K/mm3 Blast Cells # K/mm3 WBC Morphology Hypersegmented Neuts Hyposegmented Neuts Hypogranular Neuts Smudge Cells Toxic Granulation Toxic Vacuolation Dohle Bodies Pelger-Huet Anomaly Bonnie Rods Platelet Estimate Clumped Platelets Plt Clumps, EDTA Large Platelets Giant Platelets Platelet Satelliting Plt Morphology Comment RBC Morphology Dimorphic RBCs Polychromasia Hypochromasia Poikilocytosis Anisocytosis Microcytosis Macrocytosis Spherocytes Pappenheimer Bodies Sickle Cells Target Cells Tear Drop Cells Ovalocytes Helmet Cells [place] Bodies [place] Rings Golden Cells Bite Cells Crenated Cell Elliptocytes Acanthocytes (Spur) Rouleaux Hemoglobin C Crystals Schistocytes Malaria parasites Maikel Bodies Hem Pathologist Commnt PT (12.2-14.9) Sec. INR (0.87-1.13) APTT (24.2-36.6) Sec. Sodium (137-145) mmol/L Potassium (3.6-5.0) mmol/L Chloride (98-107) mmol/L Carbon Dioxide (22-30) mmol/L Anion Gap mmol/L BUN (7-17) mg/dL Creatinine (0.7-1.2) mg/dL Estimated GFR ml/min BUN/Creatinine Ratio % Glucose (65-100) mg/dL Calcium (8.4-10.2) mg/dL Total Bilirubin (0.1-1.2) mg/dL AST (5-40) units/L ALT (7-56) units/L Alkaline Phosphatase (35-129) units/L Troponin T (0.00-0.029) ng/mL NT-Pro-B Natriuret Pep 268.9 (0-900) pg/mL Total Protein (6.3-8.2) g/dL Albumin (3.9-5) g/dL Albumin/Globulin Ratio % - EKG Data -: EKG Interpreted by Me EKG shows normal: sinus rhythm Rate: normal - Radiology Data Radiology results: report reviewed - Medical Decision Making Lasix given discussed results with patient Critical Care Time: Yes Critical care time in (mins) excluding proc time.: 35 Critical care attestation.: If time is entered above; I have spent that time in minutes in the direct care of this critically ill patient, excluding procedure time. ED Disposition Clinical Impression: Pulmonary edema Disposition: OP ADMIT IP TO THIS HOSP Is pt being admited?: Yes Does the pt Need Aspirin: Yes Condition: Fair Instructions: Pulmonary Edema (ED)
[2019-05-05 15:13] LABS: Alanine Aminotransferase 27 units/L (7-56); Albumin 3.5 g/dL (3.9-5); BUN/Creatinine Ratio 22; Blood Urea Nitrogen 20 mg/dL (7-17); Calcium 9.2 mg/dL (8.4-10.2); Hemolysis Index 0
[2019-05-05 16:01] LABS: Total Cells Counted 100
[2019-05-05] MEDS ORDERED: LASIX IV ONE (16:01)
[2019-05-05 16:02] LABS: Anisocytosis 3+; Basophils % (Manual) 0 % (0.0-1.8); Eosinophils % (Manual) 0 % (0.0-4.3); Ovalocytes Few; Platelet Estimate Consistent w Auto
[2019-05-05] MEDS ORDERED: LASIX ONE (16:26)
[2019-05-05] MEDS ORDERED: MAXIPIME/NS 2 GM/100 ML 2 GM/100 ML BAG IV ONE (16:29)
[2019-05-05] MEDS ORDERED: LASIX PO ONE (16:34)
--- NOTE | 2019-05-05 16:36 | History and Physical Report ---
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 Pt states that she has experienced shortness of breath over the past 1 week, with worsening symptoms over the past 3 days. Pt acknowledges e greyson to her legs as well as 10lbs weight gain over the past 3 days. Pt acknowledges noncompliance with her recommended dose of lasix due to frequent urination. Pt denies fever, chills, CP, Palpitations, NVD, Productive cough, hemoptysis, skin rash, syncope, trauma, or recent ill contacts. Pt transported to [facility] via private vehicle. Pt seen and evaluated and found to have Acute on Chronic Hypoxemic Respiratory Failure secondary to Pneumonia, SIRS, and Anemia. Pt admitted to [facility] and initiated on Pneumonia protocol. Pt also treated with diuresis, supplemental oxygen, and nebulizer therapy with improvement in symptoms. Prior admission on 01/12/19 reviewed. All listed medication reconciled at time of admission. 30 Minutes Advanced care planning conducted. Pt acknowledge understanding and agreement with care plan. Past History Past Medical History: cancer, COPD, diabetes, DVT, GERD, heart failure, hypertension, other (Depression) Past Surgical History: appendectomy, hysterectomy, total knee replacement, Other (Port placement) Social history: . denies: smoking, alcohol abuse, prescription drug abuse Family history: diabetes, hypertension Medications and Allergies Allergies Allergy/AdvReac Type Severity Reaction Status Date / Time benazepril AdvReac Angioedema Verified 05/05/19 11:58 Home Medications Medication Instructions Recorded Confirmed Last Taken Type Furosemide [Lasix TAB] 20 mg PO BID 11/23/18 05/05/19 11/22/18 History 40mg Potassium Chloride [Klor-Con M10] 10 meq PO DAILY 11/23/18 05/05/19 11/22/18 History 10meq Metformin HCl [Glucophage] 1,000 mg PO QAM&QHS 12/08/18 05/05/19 Unknown History Apixaban [Eliquis] 2.5 mg PO BID 05/05/19 05/05/19 Unknown History Ergocalciferol [Vitamin D2] 1 cap PO QWEEK 05/05/19 05/05/19 Unknown History Loratadine [Allergy Relief] 10 mg PO QDAY 05/05/19 05/05/19 Unknown History Meclizine [Antivert] 25 mg PO TID PRN 05/05/19 05/05/19 Unknown History Omeprazole 20 mg PO QDAC 05/05/19 05/05/19 Unknown History Active Meds: Active Medications Cefepime HCl (Maxipime/Ns 2 Gm/100 Ml) 2 gm in 100 mls @ 200 mls/hr IV ONCE ONE; Protocol Stop: 05/05/19 16:58 Review of Systems Constitutional: weight gain, no weight loss, no fever, no chills, no sweats Ears, nose, mouth and throat: no ear pain, no ear discharge, no tinnitis, no nose pain, no nasal congestion, no nasal discharge, no sinus pressure Breasts: no change in shape, no swelling, no mass Cardiovascular: shortness of breath, no chest pain Gastrointestinal: no abdominal pain, no nausea, no vomiting, no diarrhea Genitourinary Female: no pelvic pain, no flank pain, no menorrhagia, no dysuria Rectal: no pain, no incontinence, no bleeding Musculoskeletal: no neck stiffness, no neck pain, no shooting arm pain, no low back pain Integumentary: no rash, no pruritis, no redness, no sores, no wounds Neurological: no paralysis, no weakness, no parathesias, no numbness, no tingling Psychiatric: no anxiety, no memory loss, no change in sleep habits, no sleep disturbances, no insomnia, no hypersomnia Endocrine: no cold intolerance, no heat intolerance, no polyphagia, no excessive thirst, no polydipsia, no polyuria, no nocturia Hematologic/Lymphatic: no easy bruising, no easy bleeding, no lymphadenopathy, no lymphedema Allergic/Immunologic: no urticaria, no allergic rhinitis, no persistent infections, no anaphylaxis Exam - Constitutional Vitals: Temp Pulse Resp BP Pulse Ox 97.9 F 87 21 124/84 98 05/05/19 12:10 05/05/19 12:32 05/05/19 12:33 05/05/19 12:10 05/05/19 12:33 General appearance: Present: mild distress, obese - EENT Eyes: Present: PERRL ENT: hearing intact, clear oral mucosa - Neck Neck: Present: supple, normal ROM - Respiratory Respiratory effort: labored Respiratory: bilateral: diminished - Cardiovascular Heart Sounds: Present: S1 & S2. Absent: rub, click - Extremities Extremities: pulses symmetrical Extremity abnormal: edema Peripheral Pulses: within normal limits - Abdominal General gastrointestinal: Present: soft, non-tender, non-distended, normal bowel sounds Female genitourinary: Present: normal - Integumentary Integumentary: Present: clear, warm, dry - Musculoskeletal Musculoskeletal: gait normal, strength equal bilaterally - Psychiatric Psychiatric: appropriate mood/affect, intact judgment & insight - Neurologic Neurologic: CNII-XII intact, moves all extremities Results - Labs CBC & Chem 7: 05/05/19 12:45 05/05/19 12:45 Labs: Abnormal lab results 05/05/19 05/05/19 05/05/19 Range/Units 12:45 12:45 12:45 WBC 13.4 H (4.5-11.0) K/mm3 RBC 3.58 L (3.65-5.03) M/mm3 Hgb 8.7 L (10.1-14.3) gm/dl Hct 28.0 L (30.3-42.9) % MCV 78 L (79-97) fl MCH 24 L (28-32) pg RDW 27.7 H (13.2-15.2) % Seg Neuts % (Manual) 94.0 H (40.0-70.0) % Lymphocytes % (Manual) 4.0 L (13.4-35.0) % Seg Neutrophils # Man 12.6 H (1.8-7.7) K/mm3 Lymphocytes # (Manual) 0.5 L (1.2-5.4) K/mm3 PT 15.6 H (12.2-14.9) Sec. INR 1.27 H (0.87-1.13) BUN 20 H (7-17) mg/dL Albumin 3.5 L (3.9-5) g/dL Assessment and Plan - Patient Problems (1) Acute and chronic respiratory failure Current Visit: Yes Status: Acute Qualifiers: Respiratory failure complication: hypoxia Qualified Code(s): J96.21 - Acute and chronic respiratory failure with hypoxia Plan to address problem: Supplemental oxygen, chest x ray, nebulizer therapy, NIPPV as clinically indicated, (2) Pneumonia Current Visit: Yes Status: Acute Qualifiers: Laterality: left Lung location: lower lobe of lung Plan to address problem: Pneumonia Protocol: IV antibiotic therapy, supplemental oxygen, nebulizer therapy, blood cultures, urinalysis, CBC, CMP,chest x ray. (3) SIRS (systemic inflammatory response syndrome) Current Visit: Yes Status: Acute Plan to address problem: IV antibiotic therapy, CBC, CMP, Chest x ray, urinalysis, (4) Breast cancer Current Visit: Yes Status: Acute Qualifiers: Laterality: unspecified laterality Plan to address problem: supportive care, S/P Chemotherapy, supportive care, outpatient oncology F/U care. (5) Recurrent pleural effusion on left Current Visit: Yes Status: Acute Plan to address problem: Left chest tube in place, supportive care. (6) CHF (congestive heart failure) Current Visit: No Status: Acute Qualifiers: Heart failure type: diastolic Heart failure chronicity: chronic Qualified Code(s): I50.32 - Chronic diastolic (congestive) heart failure Plan to address problem: Strict I/O, daily weight, diuresis, afterload reduction, pulse oximetry, supplemental oxygen, monitor uop q shift, monitor daily fluid balance. (7) DVT prophylaxis Current Visit: Yes Status: Acute Plan to address problem: SCD to BLE while in bed, continue therapeutic anticoagulation.
[2019-05-05] MEDS ORDERED: SODIUM CHLORIDE FLUSH SYRINGE 10 ML IV PRN (16:38)
[2019-05-05] MEDS ORDERED: ZOFRAN IV PRN (16:38)
[2019-05-05] MEDS ORDERED: TYLENOL PO PRN (16:38)
[2019-05-05] MEDS ORDERED: PROVENTIL IH PRN (16:38)
[2019-05-05] MEDS ORDERED: ANTIVERT PO PRN (16:41)
[2019-05-05] MEDS: ELIQUIS PO SCH (21:26)
[2019-05-05] MEDS: SODIUM CHLORIDE FLUSH SYRINGE 10 ML IV SCH (21:27)
[2019-05-06 06:09] LABS: Hematocrit 27.3 % (30.3-42.9); Hemoglobin 8.4 gm/dl (10.1-14.3); Mean Corpuscular HGB Conc 31 % (30-34); Mean Corpuscular Volume 77 fl (79-97); Platelet Count 322 K/mm3 (140-440); Red Blood Count 3.54 M/mm3 (3.65-5.03)
[2019-05-06 06:21] LABS: Red Cell Distribution Width 27.6 % (13.2-15.2)
[2019-05-06] MEDS: LASIX IV SCH ×2 (06:33→17:43)
[2019-05-06] MEDS: PROTONIX PO SCH (06:34)
[2019-05-06 06:40] LABS: Alanine Aminotransferase 29 units/L (7-56); Albumin 3.4 g/dL (3.9-5); BUN/Creatinine Ratio 25; Blood Urea Nitrogen 20 mg/dL (7-17); Calcium 8.6 mg/dL (8.4-10.2); Hemolysis Index 1
[2019-05-06 07:39] LABS: Anisocytosis 1+; Basophils % (Manual) 0 % (0.0-1.8); Eosinophils % (Manual) 0 % (0.0-4.3); Platelet Estimate Consistent w Auto; Total Cells Counted 100
[2019-05-06] MEDS ORDERED: NON-FORMULARY (Omeprazole [Omeprazole] 20 MG) PO SCH (08:00)
[2019-05-06] MEDS: ROCEPHIN/NS 2 GM/100 ML 2 GM/100 ML BAG IV SCH (10:15)
[2019-05-06] MEDS: CLARITIN PO SCH (10:15)
[2019-05-06] MEDS: ELIQUIS PO SCH ×2 (10:15→21:31)
[2019-05-06] MEDS: K-DUR PO SCH (10:15)
[2019-05-06] MEDS: SODIUM CHLORIDE FLUSH SYRINGE 10 ML IV SCH ×2 (10:16→21:34)
--- NOTE | 2019-05-06 15:26 | Progress Note ---
Assessment and Plan Assessment and plan: 68 YO Female with Metastatic Breast Cancer, Recurrent Malignant Pleural Effusion S/P Therapeutic Thoracentesis, DM, COPD, Chronic Respiratory Failure on 2L Home Oxygen, GERD, CHF, HLD, Anemia, DVT on Therapeutic Anticoagulation presents to ED for evaluation. Pt states that she has experienced shortness of breath over the past 1 week, with worsening symptoms over the past 3 days. Pt acknowledges edema to her legs as well as 10lbs weight gain over the past 3 days. Pt acknowledges noncompliance with her recommended dose of lasix due to frequent urination. Pt denies fever, chills, CP, Palpitations, NVD, Productive cough, hemoptysis, skin rash, syncope, trauma, or recent ill contacts. Pt transported t o [facility] via private vehicle. Pt seen and evaluated and found to have Acute on Chronic Hypoxemic Respiratory Failure secondary to Pneumonia, SIRS, and Anemia. Pt admitted to [facility] and initiated on Pneumonia protocol. Pt also treated with diuresis, supplemental oxygen, and nebulizer therapy with improvement in symptoms. Prior admission on 01/12/19 reviewed. CXR: Mild CHF. Moderate left pleural effusion which compresses the left lung base. No pneumothorax. There appears to be a left chest tube terminating just below the (1) Acute and chronic respiratory failure * Supplemental oxygen, chest x ray, nebulizer therapy, NIPPV as clinically indicated, * Resolving (2) Pneumonia- Ruled out (3) SIRS (systemic inflammatory response syndrome) * Will stop IV abx in 24 hrs if no fever (4) Breast cancer * Continue supportive care supportive care, S/P Chemotherapy, supportive care, outpatient oncology F/U care. (5) Recurrent pleural effusion on left * Left chest tube in place, supportive care. Does not appear it needs to repositioned (6) CHF (congestive heart failure) Current Visit: No Status: Acute Qualifiers: Heart failure type: diastolic Heart failure chronicity: chronic Qualified Code(s): I50.32 - Chronic diastolic (congestive) heart failure Plan to address problem: Strict I/O, daily weight, diuresis, afterload reduction, pulse oximetry, supplemental oxygen, monitor uop q shift, monitor daily fluid balance. (7) Anemia of chronic disease Monitor (8)DVT prophylaxis Current Visit: Yes Status: Acute Plan to address problem: SCD to BLE while in bed, continue therapeutic anticoagulation. Anticipate discharge in AM. History Interval history: Admitted for shortness of breath Patient is examined today in no acute distress, resting comfortably. She reports improvement in symptoms. Hospitalist Physical - Physical exam Narrative exam: VITAL SIGNS: Reviewed. GENERAL: The patient appears normally developed, Vital signs as documented. HEAD: No signs of head trauma. EYES: Pupils are equal. Extraocular motions intact. EARS: Hearing grossly intact. MOUTH: Oropharynx is normal. NECK: No adenopathy, no JVD. CHEST: Chest with clear breath sounds bilaterally. No wheezes, rales, or rhonchi. CARDIAC: Regular rate and rhythm. S1 and S2, without murmurs, gallops, or rubs. VASCULAR: No Edema. Peripheral pulses normal and equal in all extremities. ABDOMEN: Soft, non tender and non distended. No rebound or guarding, and no masses palpated. Bowel Sounds normal. MUSCULOSKELETAL: Good range of motion of all major joints. Extremities without clubbing, cyanosis or edema. NEUROLOGIC EXAM: Alert and oriented x 3 No focal sensory or strength deficits. Speech normal. Follows commands. PSYCHIATRIC: Mood normal. SKIN: detial exam as documented in skin assessment - Constitutional Vitals: Temp Pulse Resp BP Pulse Ox 99.0 F 85 18 103/53 97 05/06/19 13:17 05/06/19 13:17 05/06/19 13:17 05/06/19 13:17 05/06/19 13:17 General appearance: Present: mild distress, obese Results - Labs CBC & Chem 7: 05/06/19 05:42 05/06/19 05:42 Labs: Laboratory Last Values WBC 8.2 K/mm3 (4.5-11.0) 05/06/19 05:42 RBC 3.54 M/mm3 (3.65-5.03) L 05/06/19 05:42 Hgb 8.4 gm/dl (10.1-14.3) L 05/06/19 05:42 Hct 27.3 % (30.3-42.9) L 05/06/19 05:42 MCV 77 fl (79-97) L 05/06/19 05:42 MCH 24 pg (28-32) L 05/06/19 05:42 MCHC 31 % (30-34) 05/06/19 05:42 RDW 27.6 % (13.2-15.2) H 05/06/19 05:42 Plt Count 322 K/mm3 (140-440) 05/06/19 05:42 Add Manual Diff Complete 05/06/19 05:42 Total Counted 100 05/06/19 05:42 Seg Neuts % (Manual) 76.0 % (40.0-70.0) H 05/06/19 05:42 0 % 05/06/19 05:42 18.0 % (13.4-35.0) 05/06/19 05:42 Reactive Lymphs % (Man) 0 % 05/06/19 05:42 6.0 % (0.0-7.3) 05/06/19 05:42 0 % (0.0-4.3) 05/06/19 05:42 0 % (0.0-1.8) 05/06/19 05:42 0 % 05/06/19 05:42 0 % 05/06/19 05:42 0 % 05/06/19 05:42 0 % 05/06/19 05:42 Nucleated RBC % Not Reportable 05/06/19 05:42 Seg Neutrophils # Man 6.2 K/mm3 (1.8-7.7) 05/06/19 05:42 Band Neutrophils # 0.0 K/mm3 05/06/19 05:42 1.5 K/mm3 (1.2-5.4) 05/06/19 05:42 Abs React Lymphs (Man) 0.0 K/mm3 05/06/19 05:42 0.5 K/mm3 (0.0-0.8) 05/06/19 05:42 0.0 K/mm3 (0.0-0.4) 05/06/19 05:42 0.0 K/mm3 (0.0-0.1) 05/06/19 05:42 0.0 K/mm3 05/06/19 05:42 0.0 K/mm3 05/06/19 05:42 0.0 K/mm3 05/06/19 05:42 Blast Cells # 0.0 K/mm3 05/06/19 05:42 WBC Morphology Not Reportable 05/06/19 05:42 Hypersegmented Neuts Not Reportable 05/06/19 05:42 Hyposegmented Neuts Not Reportable 05/06/19 05:42 Hypogranular Neuts Not Reportable 05/06/19 05:42 Not Reportable 05/06/19 05:42 Not Reportable 05/06/19 05:42 Not Reportable 05/06/19 05:42 Not Reportable 05/06/19 05:42 Not Reportable 05/06/19 05:42 Not Reportable 05/06/19 05:42 Consistent w auto 05/06/19 05:42 Not Reportable 05/06/19 05:42 Plt Clumps, EDTA Not Reportable 05/06/19 05:42 Not Reportable 05/06/19 05:42 Not Reportable 05/06/19 05:42 Not Reportable 05/06/19 05:42 Plt Morphology Comment Not Reportable 05/06/19 05:42 RBC Morphology Not Reportable 05/06/19 05:42 Dimorphic RBCs Not Reportable 05/06/19 05:42 Not Reportable 05/06/19 05:42 Not Reportable 05/06/19 05:42 Not Reportable 05/06/19 05:42 1+ 05/06/19 05:42 Not Reportable 05/06/19 05:42 Not Reportable 05/06/19 05:42 Not Reportable 05/06/19 05:42 Not Reportable 05/06/19 05:42 Not Reportable 05/06/19 05:42 Not Reportable 05/06/19 05:42 Not Reportable 05/06/19 05:42 Not Reportable 05/06/19 05:42 Not Reportable 05/06/19 05:42 Not Reportable 05/06/19 05:42 Not Reportable 05/06/19 05:42 Not Reportable 05/06/19 05:42 Not Reportable 05/06/19 05:42 Not Reportable 05/06/19 05:42 1+ 05/06/19 05:42 Acanthocytes (Spur) Not Reportable 05/06/19 05:42 Rouleaux Not Reportable 05/06/19 05:42 Not Reportable 05/06/19 05:42 Not Reportable 05/06/19 05:42 Not Reportable 05/06/19 05:42 Not Reportable 05/06/19 05:42 Hem Pathologist Commnt No 05/06/19 05:42 PT 15.6 Sec. (12.2-14.9) H 05/05/19 12:45 INR 1.27 (0.87-1.13) H 05/05/19 12:45 APTT 26.4 Sec. (24.2-36.6) 05/05/19 12:45 Sodium 143 mmol/L (137-145) 05/06/19 05:42 Potassium 4.2 mmol/L (3.6-5.0) 05/06/19 05:42 Chloride 100.5 mmol/L (98-107) 05/06/19 05:42 Carbon Dioxide 30 mmol/L (22-30) 05/06/19 05:42 17 mmol/L 05/06/19 05:42 BUN 20 mg/dL (7-17) H 05/06/19 05:42 0.8 mg/dL (0.7-1.2) 05/06/19 05:42 Estimated GFR > 60 ml/min 05/06/19 05:42 25 % 05/06/19 05:42 Glucose 89 mg/dL (65-100) 05/06/19 05:42 Lactic Acid 1.80 mmol/L (0.7-2.0) 05/06/19 07:21 Calcium 8.6 mg/dL (8.4-10.2) 05/06/19 05:42 0.30 mg/dL (0.1-1.2) 05/06/19 05:42 AST 50 units/L (5-40) H 05/06/19 05:42 ALT 29 units/L (7-56) 05/06/19 05:42 69 units/L (35-129) 05/06/19 05:42 < 0.010 ng/mL (0.00-0.029) 05/05/19 12:45 NT-Pro-B Natriuret Pep 268.9 pg/mL (0-900) 05/05/19 12:45 6.2 g/dL (6.3-8.2) L 05/06/19 05:42 3.4 g/dL (3.9-5) L 05/06/19 05:42 1.2 % 05/06/19 05:42 Active Medications - Current Medications Current Medications: Generic Name Dose Route Start Last Admin Trade Name Freq PRN Reason Stop Dose Admin Acetaminophen 650 mg 05/05/19 16:38 Tylenol PO Q4H PRN Pain MILD(1-3)/Fever >100.5/RANDLE Albuterol 2.5 mg 05/05/19 16:38 Proventil IH Q4HRT PRN Shortness Of Breath Apixaban 2.5 mg 05/05/19 22:00 05/06/19 10:15 Eliquis PO 2.5 mg BID LOAN Administration Protocol Ergocalciferol 50,000 unit 05/12/19 10:00 Vitamin D2 PO We LOAN Furosemide 20 mg 05/06/19 06:00 05/06/19 06:33 Lasix IV 20 mg 0600,1800 LOAN Administration Ceftriaxone Sodium 2 gm in 100 mls @ 200 mls/hr 05/06/19 10:00 05/06/19 10:15 Rocephin/Ns 2 Gm/100 Ml IV 200 mls/hr Q24HR LOAN Administration Protocol Azithromycin 500 mg/ Sodium 250 mls @ 250 mls/hr 05/06/19 18:00 Chloride IV 05/10/19 10:59 Q24HR LOAN Protocol Loratadine 10 mg 05/06/19 10:00 05/06/19 10:15 Claritin PO 10 mg QDAY LOAN Administration Meclizine HCl 25 mg 05/05/19 16:41 Antivert PO TID PRN Vertigo Ondansetron HCl 4 mg 05/05/19 16:38 Zofran IV Q8H PRN Nausea And Vomiting Pantoprazole Sodium 20 mg 05/06/19 07:30 05/06/19 06:34 Protonix PO 20 mg QDAY@0730 LOAN Administration Potassium Chloride 10 meq 05/06/19 10:00 05/06/19 10:15 K-Dur PO 10 meq DAILY LOAN Administration Sodium Chloride 10 ml 05/05/19 22:00 05/06/19 10:16 Sodium Chloride Flush Syringe 10 Ml IV 10 ml BID LOAN Administration Sodium Chloride 10 ml 05/05/19 16:38 Sodium Chloride Flush Syringe 10 Ml IV PRN PRN LINE FLUSH
[2019-05-06] MEDS: ZITHROMAX 500 MG in NACL 0.9% 250ML 250 ML IV SCH (17:43)
[2019-05-07] MEDS: LASIX IV SCH (06:10)
[2019-05-07] MEDS: K-DUR PO SCH (09:07)
[2019-05-07] MEDS: PROTONIX PO SCH (09:07)
[2019-05-07] MEDS: ELIQUIS PO SCH (09:07)
[2019-05-07] MEDS: CLARITIN PO SCH (09:07)
[2019-05-07] MEDS: ROCEPHIN/NS 2 GM/100 ML 2 GM/100 ML BAG IV SCH (09:07)
[2019-05-07] MEDS: ZITHROMAX 500 MG in NACL 0.9% 250ML 250 ML IV SCH (09:08)
[2019-05-07] MEDS: SODIUM CHLORIDE FLUSH SYRINGE 10 ML IV SCH (09:08)
--- NOTE | 2019-05-07 10:57 | Discharge Summary ---
Providers - Providers Date of Admission: 05/05/19 16:38 Attending physician: GLENYS OBRIEN MD 05/07/19 08:19 Physical Therapy Evaluation and Treat [CONS] Routine Comment: Reason For Exam: Weakness [facility] Reason for admission: SHORTNESS OF BREATH Condition: Stable Hospital course: 68 YO Female with Metastatic Breast Cancer, Recurrent Malignant Pleural Effusion S/P Therapeutic Thoracentesis, DM, COPD, Chronic Respiratory Failure on 2L Home Oxygen, GERD, CHF, HLD, Anemia, DVT on Therapeutic Anticoagulation presents to ED for evaluation. Pt states that she has experienced shortness of breath over the past 1 week, with worsening symptoms over the past 3 days. Pt acknowledges edema to her legs as well as 10lbs weight gain over the past 3 days. Pt acknowledges noncompliance with her recommended dose of lasix due to frequent urination. Pt denies fever, chills, CP, Palpitations, NVD, Productive cough, hemoptysis, skin rash, syncope, trauma, or recent ill contacts. Pt transported to [facility] via private vehicle. Pt seen and evaluated and found to have Acute on Chronic Hypoxemic Respiratory Failure secondary to Pneumonia, SIRS, and Anemia. Pt admitted to [facility] and initiated on Pneumonia protocol. Pt also treated with diuresis, supplemental oxygen, and nebulizer therapy with improvement in symptoms. Prior admission on 01/12/19 reviewed. CXR: Mild CHF. Moderate left pleural effusion which compresses the left lung base. No pneumothorax. There appears to be a left chest tube terminating just below the (1) Acute and chronic respiratory failure * Improved with nebs and lasix and treated for acute bronchitis (2) Pneumonia- Ruled out (3) SIRS (systemic inflammatory response syndrome)without organ dysfunction-POA secondary to CHF (4) Breast cancer * Continue supportive care supportive care, S/P Chemotherapy, supportive care, outpatient oncology F/U care. (5) Recurrent pleural effusion on left * Left chest tube in place, supportive care. Does not appear it needs to repositioned. BUt patient will follow with Pulmonary outpatient (6) Diastolic CHF (congestive heart failure) acute exacerbation Strict I/O, daily weight, diuresis, afterload reduction, pulse oximetry, supplemental oxygen, monitor uop q shift, monitor daily fluid balance. (7) Anemia of chronic disease Monitor Disposition: DC/TX-06 HOME [facility] Time spent for discharge: 35 mins Core Measure Documentation - Palliative Care Palliative Care/ Comfort Measures: Not Applicable - Core Measures Any of the following diagnoses?: none Exam - Physical Exam Narrative exam: VITAL SIGNS: Reviewed. GENERAL: The patient appears normally developed, Vital signs as documented. HEAD: No signs of head trauma. EYES: Pupils are equal. Extraocular motions intact. EARS: Hearing grossly intact. MOUTH: Oropharynx is normal. NECK: No adenopathy, no JVD. CHEST: Chest with clear breath sounds bilaterally. No wheezes, rales, or rhonchi. CARDIAC: Regular rate and rhythm. S1 and S2, without murmurs, gallops, or rubs. VASCULAR: No Edema. Peripheral pulses normal and equal in all extremities. ABDOMEN: Soft, non tender and non distended. No rebound or guarding, and no masses palpated. Bowel Sounds normal. MUSCULOSKELETAL: Good range of motion of all major joints. Extremities without clubbing, cyanosis or edema. NEUROLOGIC EXAM: Alert and oriented x 3 No focal sensory or strength deficits. Speech normal. Follows commands. PSYCHIATRIC: Mood normal. SKIN: detial exam as documented in skin assessment - Constitutional Vitals: Temp Pulse Resp BP Pulse Ox 99.0 F 83 18 96/54 98 05/07/19 07:45 05/07/19 07:45 05/07/19 07:45 05/07/19 07:45 05/07/19 09:40 Plan Activity: advance as tolerated, fall precautions Diet: low fat Special Instructions: record daily weights, record daily BP diary Follow up with: [facility] MD SABINA [Primary Care Provider] - 3-5 Days SAMI GIBBONS MD [Staff Physician] - 7 Days LIONEL ALFRED MD [Staff Physician] - 7 Days ROMULO BECKER MD [Staff Physician] - 7 Days Prescriptions: Azithromycin [Zithromax TAB] 250 mg PO QDAY #3 tablet
[2019-05-07 14:11] VITALS: BP 103/55
[2019-05-12] MEDS ORDERED: VITAMIN D2 PO SCH (10:00)
== END 2019-05-07 15:25 | disposition home health service (06) | DRG 189 ==
LOC: ED 11:54 → 2B-ACE 16:38
PROVIDERS: ADMIT Internal Medicine; ATTEND Internal Medicine
PROC: 5A09357 Assistance with Respiratory Ventilation, Less than 24 Consecutive Hours, Continuous Positive Airway Pressure (ICD-10-PCS; principal; 2019-05-06)
DX: J96.21 Acute and chronic respiratory failure with hypoxia (principal); I50.33 Acute on chronic diastolic (congestive) heart failure; R65.10 Systemic inflammatory response syndrome (SIRS) of non-infectious origin without acute organ dysfunction; C50.919 Malignant neoplasm of unspecified site of unspecified female breast; E11.9 Type 2 diabetes mellitus without complications; D63.1 Anemia in chronic kidney disease; I11.0 Hypertensive heart disease with heart failure; K21.9 Gastro-esophageal reflux disease without esophagitis; F32.9 Major depressive disorder, single episode, unspecified; Z96.659 Presence of unspecified artificial knee joint; M19.90 Unspecified osteoarthritis, unspecified site; J44.9 Chronic obstructive pulmonary disease, unspecified; Z99.81 Dependence on supplemental oxygen; Z86.718 Personal history of other venous thrombosis and embolism; Z79.01 Long term (current) use of anticoagulants; Z90.49 Acquired absence of other specified parts of digestive tract; Z90.710 Acquired absence of both cervix and uterus; Z82.49 Family history of ischemic heart disease and other diseases of the circulatory system; Z83.3 Family history of diabetes mellitus; Z79.899 Other long term (current) drug therapy
CPT/HCPCS: 36415; 71045; 80053; 82140; 82962; 83880; 84484; 85007; 85025; 85610; 85730; 87040; 87116; 93005; 93010; 94660; 94760; 96365; G0378; J0456; J0692; J0696; J1940; J2405; J7050

== ENCOUNTER 2019-09-09 07:04 | Day surgery (SDC) | payer MEDICARE ==
[2019-09-09] MEDS ORDERED: SODIUM CHLORIDE 0.9% 500 ML 500 ML IV SCH (08:00)
[2019-09-09 08:10] LABS: Hematocrit 34.6 % (30.3-42.9); Hemoglobin 10.8 gm/dl (10.1-14.3); Mean Corpuscular HGB Conc 31 % (30-34); Mean Corpuscular Volume 87 fl (79-97); Platelet Count 222 K/mm3 (140-440); Red Blood Count 3.97 M/mm3 (3.65-5.03)
[2019-09-09 08:11] LABS: Red Cell Distribution Width 29.4 % (13.2-15.2)
[2019-09-09 08:12] LABS: INR 1.08 (0.87-1.13)
[2019-09-09 08:13] LABS: Partial Thromboplastin Time 24.7 Sec. (24.2-36.6)
--- NOTE | 2019-09-09 08:14 | Short Stay Summary ---
Short Stay Documentation Date of service: 09/09/19 - History Principal diagnosis: Malignant pleural effusion Past Medical History: cancer Past Surgical History: Other (pleuryx catheter placement) Social history: no significant social history - Allergies and Medications Current Medications: Allergies benazepril Adverse Reaction (Verified 05/05/19 11:58) Angioedema Home Medications Medication Instructions Recorded Confirmed Last Taken Type Potassium Chloride [Klor-Con M10] 10 meq PO DAILY 11/23/18 09/09/19 09/08/19 History 10 meq Apixaban [Eliquis] 2.5 mg PO BID 05/05/19 09/09/19 09/08/19 History 2.5mg Ergocalciferol [Vitamin D2] 1 cap PO QWEEK 05/05/19 09/09/19 09/04/19 History 1 cap Loratadine [Allergy Relief] 10 mg PO QDAY 05/05/19 09/09/19 09/08/19 History 10 mg Capecitabine [Xeloda] 1,500 mg PO BID 06/16/19 09/09/19 09/08/19 History 1500 mg Acetaminophen [Acetaminophen TAB] 650 mg PO Q4H PRN tablet 06/18/19 09/09/19 07/03/19 Rx 650 mg Furosemide [Lasix TAB] 20 mg PO BID #60 tablet 06/18/19 09/09/19 09/08/19 Rx 20 mg Metformin HCl [Glucophage] 1,000 mg PO QAM&QHS #60 tablet 06/18/19 09/09/19 09/08/19 Rx 1000 mg Omeprazole 20 mg PO QDAC #30 capsule. 06/18/19 09/09/19 09/08/19 Rx 20 mg Meclizine [Antivert] 25 mg PO Q48H PRN 09/09/19 09/09/19 09/08/19 History 25 mg Active Medications Sodium Chloride (Nacl 0.9% 500 Ml) 500 mls @ 50 mls/hr IV DIRECT LOAN Last Admin: 09/09/19 08:02 Dose: 50 mls/hr Documented by: - Physical exam General appearance: no acute distress, obese Integumentary: no rash HEENT: Atraumatic Lungs: Normal air movement Breasts: deferred Heart: Regular rate Gastrointestinal: normal Female Genitourinary: deferred Rectal Exam: deferred Neurological: Normal speech - Brief post op/procedure progress note Date of procedure: 09/09/19 Pre-op diagnosis: Left pleural effusion now resolved Post-op diagnosis: same Procedure: Left tunneled chest tube removal Anesthesia: local Surgeon: YAEL HUERTA Estimated blood loss: minimal Pathology: none Condition: stable - Disposition Condition at discharge: Good Disposition: DC-01 TO HOME OR SELFCARE Short Stay Discharge Plan Activity: advance as tolerated Weight Bearing Status: Weight Bear as Tolerated Diet: regular Wound: keep clean and dry, per your surgeon's advice Follow up with: ANJU CASTRO MD [Primary Care Provider] - 7 Days
[2019-09-09 08:15] LABS: BUN/Creatinine Ratio 17; Blood Urea Nitrogen 15 mg/dL (7-17); Calcium 9.2 mg/dL (8.4-10.2); Hemolysis Index 0
[2019-09-09] MEDS ORDERED: fentaNYL 100 MCG/2 ML INJ ONE (08:54)
[2019-09-09] MEDS ORDERED: SODIUM CHLORIDE IRRI 500 ML 500 ML IR ONE (08:54)
[2019-09-09] MEDS ORDERED: MIDAZOLAM 2 MG/2 ML INJ ONE (08:54)
[2019-09-09] MEDS: LIDOCAINE (2%) 20 MG/1 ML VIAL 20 ML MDV INFILTRATI ONE ×2 (09:10→09:16)
--- NOTE | 2019-09-09 09:54 | Operative Report ---
Operative Report Operative Report: Exam: Left tunneled chest tube removal Clinical indication: Patient with a history of metastatic breast cancer and malignant pleural effusion which is now resolved following placement of a tunneled chest tube in December. Date: 09/09/2019 Procedure: Following an explanation of the risks, benefits and alternatives; written informed consent was obtained. The patient was brought to the angiographic suite and placed in supine position on the examination table. Initial fluoroscopic images of the left hemithorax demonstrated appropriate positioning of the patient's indwelling chest tube. No large pleural effusion was identified. The patient's left chest wall and indwelling catheter were prepped and draped in the usual sterile fashion. 1% lidocaine was used at the catheter exit site along the tunnel tract. The catheter was then dissected free and the catheter removed intact. Hemostasis was achieved using manual compression and a sterile occlusive dressing was applied. A compression dressing was then applied. Post-removal imaging demonstrated no retained fragments. The patient tolerated the procedure well. There were no immediate post procedure complications. Conscious sedation was performed under the guidance of radiologic nursing. Continuous cardiopulmonary monitoring was utilized. A post removal chest x-ray was ordered 2 hours after the procedure. Impression: Left tunneled chest tube removal.
--- NOTE | 2019-09-09 10:23 | XRay Report ---
CHEST 1 VIEW 1001 hours INDICATION / CLINICAL INFORMATION: left chest tube removal. COMPARISON: 06/15/2019 FINDINGS: SUPPORT DEVICES: Right subclavian venous catheter is unchanged. Left chest tube has been removed. HEART / MEDIASTINUM: Stable mild cardiomegaly. LUNGS / PLEURA: Decreased pulmonary venous congestion. Left pleural effusion has essentially resolved . There is trace left pleural fluid or thickening. No evidence for infiltrate or pneumothorax. ADDITIONAL FINDINGS: No significant additional findings. IMPRESSION: Left chest tube removal with trace left pleural fluid or chronic pleural thickening remaining. Signer Name: Edmar Reid Jr, MD Signed: 09/09/2019 10:19 AM Workstation Name: [id number]
[2019-09-09 12:00] VITALS: BP 120/66
--- NOTE | 2019-09-09 12:40 | XRay Report ---
CHEST - 1 VIEW 1139 hours INDICATION: s/p left chest tube removal COMPARISON: 09/09/2019 at 1001 hours FINDINGS: Support devices: Stable right venous catheter tubing. Heart: Stable heart size. Lungs/pleura: Stable trace left pleural fluid or left pleural thickening. The lungs are generally cl ear otherwise. No pneumothorax. Additional findings: None. IMPRESSION: No change since earlier today at 1001 hours. Signer Name: Edmar Reid Jr, MD Signed: 09/09/2019 12:35 PM Workstation Name: [id number]
== END 2019-09-09 12:20 | disposition home or self-care (01) ==
LOC: CATHLABREC 07:04
PROVIDERS: ATTEND Radiology Diagnostic Radiology
DX: C50.919 Malignant neoplasm of unspecified site of unspecified female breast (principal); J91.0 Malignant pleural effusion; J92.9 Pleural plaque without asbestos; I11.0 Hypertensive heart disease with heart failure; E11.9 Type 2 diabetes mellitus without complications; I50.9 Heart failure, unspecified; K21.9 Gastro-esophageal reflux disease without esophagitis; J96.10 Chronic respiratory failure, unspecified whether with hypoxia or hypercapnia; D72.829 Elevated white blood cell count, unspecified; F32.9 Major depressive disorder, single episode, unspecified; E66.2 Morbid (severe) obesity with alveolar hypoventilation; J44.9 Chronic obstructive pulmonary disease, unspecified; M19.90 Unspecified osteoarthritis, unspecified site; Z90.710 Acquired absence of both cervix and uterus; Z98.890 Other specified postprocedural states; Z68.41 Body mass index [BMI] 40.0-44.9, adult; Z79.899 Other long term (current) drug therapy; Z79.84 Long term (current) use of oral hypoglycemic drugs; Z86.718 Personal history of other venous thrombosis and embolism; Z88.8 Allergy status to other drugs, medicaments and biological substances
CPT/HCPCS: 32552; 36415; 71045; 80048; 85027; 85610; 85730; 99156; J2250; J3010; J7040

== ENCOUNTER 2019-12-09 09:32 | Outpatient (CLI) | payer MEDICARE ==
[2019-12-09 10:46] LABS: Blood Urea Nitrogen 15 mg/dL (7-17)
--- NOTE | 2019-12-09 13:36 | Cat Scan Report ---
CT CHEST, ABDOMEN, PELVIS WITH CONTRAST HISTORY: MALIGNANT NEOPLASM OF UPPER -OUTER QUADRANT OF LEFT FEMALE BR. COMPARISON: 09/09/2019 TECHNIQUE: CT images of the chest, abdomen, and pelvis were obtained following administration of intr avenous contrast. All CT scans at this location are performed using CT dose reduction for PADMINIRA by yanet fitzpatrick of automated exposure control. CONTRAST: 100 ml of intravenous contrast administered. FINDINGS: CHEST: There is a 1.2 cm soft tissue mass in the left upper outer posterior breast. Additionally, there is a 4.9 x 1.3 cm soft tissue density with overlying skin retraction near the left inframammary fold. A s uspected metallic marker is noted and this may represent the site of prior biopsy or postsurgical ralf nge. The lungs demonstrate numerous bilateral pleural-based soft tissue nodules. There is a 1 cm intrapare nchymal nodule within the left lower lobe. The heart is within normal limits in terms of size. No pericardial effusion. Borderline enlarged medi astinal lymphadenopathy is noted with 1.3 x 1 cm left paratracheal lymph node just superior to the ca zoraida. Pulmonary vasculature is unremarkable without filling defect to suggest the presence of pulmonary emb olism or acute aortic injury. No pleural effusion or pneumothorax. ABDOMEN/PELVIS: There is diffuse hypodense appearance of liver consistent with steatosis. There is a 1.2 cm left adrenal nodule. There is a 2.3 x 1.7 cm hyperdense irregular structure within the gallbladder fundus. The spleen, pancreas, and kidneys are unremarkable. Fat-containing periumbilical hernia is present. G astrointestinal tract shows no evidence of focal bowel wall thickening or distention to suggest the p resence of obstruction. The urinary bladder is unremarkable. Irregular appearance is noted in the perianal region. Question whether there is a perianal mass. Ther e is a 1.2 cm soft tissue nodule within the inferior left deep pelvis, possibly enlarged lymph node. Multiple lytic lesions are noted and are consistent with sites of osseous metastases. These include a 2.9 x 2.1 cm lytic lesion within the posterior right aspect of T9 vertebral body, 3 x 1.3 cm lytic l esion within the anterior aspect of right sixth rib, 1 x 0.8 cm lucent lesion within the left sacrum, 1.8 x 1.6 cm lucent lesion within the right femoral head. Additional smaller lesions are also presen t. IMPRESSION: 1. There is a 4.9 x 1.3 cm soft tissue density with overlying skin retraction in the left inferior br east, near the inframammary fold. A biopsy marker versus surgical clip is noted in this region it is unclear if this is the site of breast malignancy or postsurgical change. Recommend correlation with p courtney's clinical history. There is also a 1.2 cm soft tissue mass in left upper outer posterior [address]. 2. Numerous bilateral pleural-based soft tissue nodules with 1 cm intraparenchymal nodule in the left lower lobe. The finding are concerning for metastatic disease. 3. Findings concerning for multiple sites of osseous metastases including T9 vertebral body, right si xth rib, left sacrum, and right femoral head, as described above. 4.There is a 2.3 x 1.7 cm hyperdense irregular structure within the gallbladder fundus. Unclear if th is is a soft tissue mass or focal area of tumefactive cholelithiasis or sludge. Recommend targeted ri ght upper quadrant ultrasound for further evaluation. 5. There is irregular ill-defined appearance in the perianal region. This is poorly evaluated on CT, however the presence of an adjacent 1.2 cm soft tissue nodule within the deep left pelvis, possibly e nlarged lymph node is suspicious. Recommend clinical correlation with direct visualization with consi deration for colonoscopy if one has not recently been performed. 6. Indeterminate 1.2 cm left adrenal nodule. Signer Name: Bartolome Mckenna MD Signed: 12/09/2019 1:32 PM Workstation Name: [id number]
== END 2019-12-09 09:33 | disposition home or self-care (01) ==
LOC: CT 09:32
PROVIDERS: ATTEND Internal Medicine Hematology & Oncology
DX: R91.1 Solitary pulmonary nodule (principal); C50.412 Malignant neoplasm of upper-outer quadrant of left female breast; D63.0 Anemia in neoplastic disease
CPT/HCPCS: 36415; 71260; 74177; 82565; 84520; Q9967

== ENCOUNTER 2021-03-15 07:43 | Emergency (ER) | payer MEDICARE ==
[2021-03-15 07:50] VITALS: BP 143/102
--- NOTE | 2021-03-15 09:24 | Event Note ---
Face to Face: For this encounter I have reviewed the PA/IMPLEMENTATION DIRECTOR documentation, treatment plan, medical decision making, and I had face to face time with this patient. I evaluated patient. I was unable to appreciate a significant lesion. Patient did have tenderness at the inferior lateral thigh. Differential diagnosis includes contusion, lipoma, early abscess which is not likely. Recommended heat pain medication follow-up with her primary care physician. She is compliant with lifetime Eliquis.
--- NOTE | 2021-03-15 09:26 | Emergency Department Report ---
ED General Adult HPI - General Chief complaint: Extremity Injury, Lower Stated complaint: LT LEG Time Seen by Provider: 03/15/21 08:57 Source: patient Mode of arrival: Wheelchair Limitations: No Limitations - History of Present Illness Initial comments: 70-year-old -[place] female patient presents with complaints of dog bite to the knees bilaterally today. Patient states she believes she was bitten when she was trying to stop a dog at the park from attacking her dog. Patient states she is familiar with the dog that bit her, however she is unsure of the dog's vaccine status. She denies any purulent drainage or fever or difficulty moving her legs. Patient states her last tetanus vaccine was within the last 5 years. -: Sudden - Related Data Home Medications Medication Instructions Recorded Confirmed Last Taken Potassium Chloride [Klor-Con M10] 10 meq PO DAILY 11/23/18 09/09/19 09/08/19 10 meq Apixaban [Eliquis] 2.5 mg PO BID 05/05/19 09/09/19 09/08/19 2.5mg Ergocalciferol [Vitamin D2] 1 cap PO QWEEK 05/05/19 09/09/19 09/04/19 1 cap Loratadine [Allergy Relief] 10 mg PO QDAY 05/05/19 09/09/19 09/08/19 10 mg Capecitabine [Xeloda] 1,500 mg PO BID 06/16/19 09/09/19 09/08/19 1500 mg Meclizine [Antivert] 25 mg PO Q48H PRN 09/09/19 09/09/19 09/08/19 25 mg Previous Rx's Medication Instructions Recorded Last Taken Type Acetaminophen [Acetaminophen TAB] 650 mg PO Q4H PRN tablet 06/18/19 07/03/19 Rx 650 mg Furosemide [Lasix TAB] 20 mg PO BID #60 tablet 06/18/19 09/08/19 Rx 20 mg Metformin HCl [Glucophage] 1,000 mg PO QAM&QHS #60 tablet 06/18/19 09/08/19 Rx 1000 mg Omeprazole 20 mg PO QDAC #30 capsule. 06/18/19 09/08/19 Rx 20 mg traMADoL [Ultram 50 MG tab] 50 mg PO Q8HR PRN #10 tablet 03/15/21 Unknown Rx Allergies Allergy/AdvReac Type Severity Reaction Status Date / Time benazepril AdvReac Angioedema Verified 03/15/21 07:46 ED Review of Systems ROS: Stated complaint: LT LEG Other details as noted in HPI Constitutional: denies: fever, malaise Musculoskeletal: denies: joint swelling, arthralgia Skin: denies: change in color, pruritus Neurological: denies: numbness, paresthesias ED Past Medical Hx - Past Medical History Hx Hypertension: Yes Hx Heart Attack/AMI: No Hx Congestive Heart Failure: Yes Hx Diabetes: Yes Hx Deep Vein Thrombosis: Yes (R leg) Hx GERD: Yes Hx Liver Disease: No Hx Arthritis: Yes Hx Headaches / Migraines: No Hx Seizures: No Hx Psychiatric Treatment: Yes (depression) Hx Asthma: Yes Hx COPD: Yes (O2 @ home PRN) Hx HIV: No Additional medical history: Breast Cancer- Received chemo on 03/05/16. anemia. high cholesterol. DVT - Surgical History Hx Appendectomy: No Additional Surgical History: Port Placement to right chest. Hyst. Left knee surgery. sinus surgery. tonsillectomy - Social History Smoking Status: Current Some Day Smoker - Medications Home Medications: Home Medications Medication Instructions Recorded Confirmed Last Taken Type Potassium Chloride [Klor-Con M10] 10 meq PO DAILY 11/23/18 09/09/19 09/08/19 History 10 meq Apixaban [Eliquis] 2.5 mg PO BID 05/05/19 09/09/19 09/08/19 History 2.5mg Ergocalciferol [Vitamin D2] 1 cap PO QWEEK 05/05/19 09/09/19 09/04/19 History 1 cap Loratadine [Allergy Relief] 10 mg PO QDAY 05/05/19 09/09/19 09/08/19 History 10 mg Capecitabine [Xeloda] 1,500 mg PO BID 06/16/19 09/09/19 09/08/19 History 1500 mg Acetaminophen [Acetaminophen TAB] 650 mg PO Q4H PRN tablet 06/18/19 09/09/19 1 Rx 650 mg Furosemide [Lasix TAB] 20 mg PO BID #60 tablet 06/18/19 09/09/19 09/08/19 Rx 20 mg Metformin HCl [Glucophage] 1,000 mg PO QAM&QHS #60 tablet 06/18/19 09/09/19 09/08/19 Rx 1000 mg Omeprazole 20 mg PO QDAC #30 capsule. 06/18/19 09/09/19 09/08/19 Rx 20 mg Meclizine [Antivert] 25 mg PO Q48H PRN 09/09/19 09/09/19 09/08/19 History 25 mg traMADoL [Ultram 50 MG tab] 50 mg PO Q8HR PRN #10 tablet 03/15/21 Unknown Rx ED Physical Exam - General Limitations: No Limitations General appearance: alert, in no apparent distress - Head Head exam: Present: atraumatic, normocephalic - Eye Eye exam: Present: normal appearance - Respiratory Respiratory exam: Absent: respiratory distress - Cardiovascular Cardiovascular Exam: Present: regular rate - Neurological Exam Neurological exam: Present: alert, oriented X3 - Psychiatric Psychiatric exam: Present: normal affect, normal mood - Skin Skin exam: Present: warm, dry, intact (2 very small puncture wounds noted to right anterior knee with a single puncture wound noted to the left knee anteriorly minimal active bleeding noted no obvious foreign bodies or erythema no;;), normal color, abrasion (Noted bilaterally to knees). Absent: rash ED Course Vital Signs 03/15/21 07:48 Temperature 97.7 F Pulse Rate 97 H Respiratory 20 Rate Blood Pressure 143/102 O2 Sat by Pulse 99 Oximetry ED Medical Decision Making - Medical Decision Making 70-year-old -[place] female patient presents with complaints of dog bite to the knees bilaterally today. Patient states she believes she was bitten when she was trying to stop a dog at the park from attacking her dog. Patient states she is familiar with the dog that bit her, however she is unsure of the dog's vaccine status. She denies any purulent drainage or fever or difficulty moving her legs. Patient states her last tetanus vaccine was within the last 5 years. Wounds irrigated with saline and dressed in Neosporin and a sterile bandage. Patient given rabies immunoglobulin and vaccination. Patient informed to follow-up with the health department in 3 days for her second rabies vaccination. Discussed wound care and signs and symptoms that should prompt immediate return to the emergency department in detail with patient who verbalized understanding. Patient also provided with a prescription for Augmentin and mupirocin. Critical care attestation.: If time is entered above; I have spent that time in minutes in the direct care of this critically ill patient, excluding procedure time. ED Disposition Clinical Impression: Localized swelling of lower extremity Disposition: DC-01 TO HOME OR SELFCARE Is pt being admited?: No Condition: Stable Instructions: [place] Prescriptions: traMADoL [Ultram 50 MG tab] 50 mg PO Q8HR PRN #10 tablet PRN Reason: Pain Referrals: [facility] [Provider Group] - 3-5 Days
== END 2021-03-15 09:48 | disposition home or self-care (01) ==
LOC: ED 07:43
DX: M79.89 Other specified soft tissue disorders (principal); I11.0 Hypertensive heart disease with heart failure; I50.9 Heart failure, unspecified; E11.9 Type 2 diabetes mellitus without complications; K21.9 Gastro-esophageal reflux disease without esophagitis; M19.91 Primary osteoarthritis, unspecified site; F32.9 Major depressive disorder, single episode, unspecified; J44.9 Chronic obstructive pulmonary disease, unspecified; F17.200 Nicotine dependence, unspecified, uncomplicated; Z98.890 Other specified postprocedural states; Z79.899 Other long term (current) drug therapy; Z88.8 Allergy status to other drugs, medicaments and biological substances
CPT/HCPCS: 99282

== ENCOUNTER 2021-07-31 19:57 | Emergency (ER) | payer MEDICARE ==
--- NOTE | 2021-07-31 21:36 | Emergency Department Report ---
ED Shortness of Breath HPI - General Chief Complaint: Dyspnea/Respdistress Stated Complaint: JEN,COPD,CHF Time Seen by Provider: 07/31/21 21:14 Source: patient, EMS Mode of arrival: Stretcher Limitations: No Limitations - History of Present Illness Initial Comments: Patient is 71 years old female with history of COPD, congestive heart failure and breast cancer currently on chemotherapy. Patient presented to the ER complaining of shortness of breath on and off for more than 1/2 months now. Patient stated that she is on oxygen. She denied any fever or chills. No chest pain. Cough or vomiting. No abdominal pain. MD Complaint: shortness of breath -: month(s) - Related Data Home Medications Medication Instructions Recorded Confirmed Last Taken Potassium Chloride [Klor-Con M10] 10 meq PO DAILY 11/23/18 09/09/19 09/08/19 10 meq Apixaban [Eliquis] 2.5 mg PO BID 05/05/19 09/09/19 09/08/19 2.5mg Ergocalciferol [Vitamin D2] 1 cap PO QWEEK 05/05/19 09/09/19 09/04/19 1 cap Loratadine [Allergy Relief] 10 mg PO QDAY 05/05/19 09/09/19 09/08/19 10 mg Capecitabine [Xeloda] 1,500 mg PO BID 06/16/19 09/09/19 09/08/19 1500 mg Meclizine [Antivert] 25 mg PO Q48H PRN 09/09/19 09/09/19 09/08/19 25 mg Previous Rx's Medication Instructions Recorded Last Taken Type Acetaminophen [Acetaminophen TAB] 650 mg PO Q4H PRN tablet 06/18/19 07/03/19 Rx 650 mg Furosemide [Lasix TAB] 20 mg PO BID #60 tablet 06/18/19 09/08/19 Rx 20 mg Metformin HCl [Glucophage] 1,000 mg PO QAM&QHS #60 tablet 06/18/19 09/08/19 Rx 1000 mg Omeprazole 20 mg PO QDAC #30 capsule. 06/18/19 09/08/19 Rx 20 mg traMADoL [Ultram 50 MG tab] 50 mg PO Q8HR PRN #10 tablet 03/15/21 Unknown Rx Allergies Allergy/AdvReac Type Severity Reaction Status Date / Time benazepril AdvReac Angioedema Verified 03/15/21 07:46 ED Review of Systems ROS: Stated complaint: JEN,COPD,CHF Other details as noted in HPI Comment: All other systems reviewed and negative Constitutional: denies: chills, fever Respiratory: shortness of breath, SOB with exertion. denies: wheezing Cardiovascular: denies: chest pain, palpitations Gastrointestinal: denies: abdominal pain, nausea, vomiting Musculoskeletal: denies: back pain ED Past Medical Hx - Past Medical History Hx Hypertension: Yes Hx Heart Attack/AMI: No Hx Congestive Heart Failure: Yes Hx Diabetes: Yes Hx Deep Vein Thrombosis: Yes (R leg) Hx GERD: Yes Hx Liver Disease: No Hx Arthritis: Yes Hx Headaches / Migraines: No Hx Seizures: No Hx Psychiatric Treatment: Yes (depression) Hx Asthma: Yes Hx COPD: Yes (O2 @ home PRN) Hx HIV: No Additional medical history: Breast Cancer- Received chemo on 03/05/16. anemia. high cholesterol. DVT - Surgical History Hx Appendectomy: No Additional Surgical History: Port Placement to right chest. Hyst. Left knee surgery. sinus surgery. tonsillectomy - Social History Smoking Status: Current Some Day Smoker - Medications Home Medications: Home Medications Medication Instructions Recorded Confirmed Last Taken Type Potassium Chloride [Klor-Con M10] 10 meq PO DAILY 11/23/18 09/09/19 09/08/19 History 10 meq Apixaban [Eliquis] 2.5 mg PO BID 05/05/19 09/09/19 09/08/19 History 2.5mg Ergocalciferol [Vitamin D2] 1 cap PO QWEEK 05/05/19 09/09/19 09/04/19 History 1 cap Loratadine [Allergy Relief] 10 mg PO QDAY 05/05/19 09/09/19 09/08/19 History 10 mg Capecitabine [Xeloda] 1,500 mg PO BID 06/16/19 09/09/19 09/08/19 History 1500 mg Acetaminophen [Acetaminophen TAB] 650 mg PO Q4H PRN tablet 06/18/19 09/09/19 07/03/19 Rx 650 mg Furosemide [Lasix TAB] 20 mg PO BID #60 tablet 06/18/19 09/09/19 09/08/19 Rx 20 mg Metformin HCl [Glucophage] 1,000 mg PO QAM&QHS #60 tablet 06/18/19 09/09/19 09/08/19 Rx 1000 mg Omeprazole 20 mg PO QDAC #30 capsule. 06/18/19 09/09/19 09/08/19 Rx 20 mg Meclizine [Antivert] 25 mg PO Q48H PRN 09/09/19 09/09/19 09/08/19 History 25 mg traMADoL [Ultram 50 MG tab] 50 mg PO Q8HR PRN #10 tablet 03/15/21 Unknown Rx ED Physical Exam - General Limitations: No Limitations General appearance: alert, in no apparent distress - Head Head exam: Present: atraumatic, normocephalic, normal inspection - Eye Eye exam: Present: normal appearance - ENT ENT exam: Present: normal exam, normal orophraynx, mucous membranes moist - Neck Neck exam: Present: normal inspection, full ROM. Absent: tenderness, meningismus - Respiratory Respiratory exam: Present: normal lung sounds bilaterally, decreased breath sounds. Absent: respiratory distress, wheezes, rales, rhonchi, accessory muscle use, prolonged expiratory - Cardiovascular Cardiovascular Exam: Present: tachycardia - GI/Abdominal GI/Abdominal exam: Present: soft, normal bowel sounds. Absent: distended, te nderness, guarding, rebound, rigid, organomegaly, mass, bruit, pulsatile mass, hernia - Extremities Exam Extremities exam: Present: pedal edema - Back Exam Back exam: Present: normal inspection, full ROM. Absent: CVA tenderness (R), CVA tenderness (L) - Neurological Exam Neurological exam: Present: alert, oriented X3 - Psychiatric Psychiatric exam: Present: normal mood - Skin Skin exam: Present: warm, intact, normal color ED Course Vital Signs 07/31/21 07/31/21 07/31/21 21:02 21:15 21:31 Pulse Rate 117 H 67 68 Respiratory 13 13 15 Rate Blood Pressure 97/55 98/62 Blood Pressure [Right] O2 Sat by Pulse 100 100 100 Oximetry 07/31/21 07/31/21 07/31/21 22:01 22:06 22:20 Pulse Rate 70 71 72 Respiratory 10 L 13 Rate Blood Pressure 107/67 Blood Pressure 109/74 [Right] O2 Sat by Pulse 100 Oximetry 07/31/21 07/31/21 07/31/21 22:31 22:46 23:01 Pulse Rate 72 70 74 Respiratory 16 17 21 Rate Blood Pressure 109/74 109/74 109/74 Blood Pressure [Right] O2 Sat by Pulse 100 100 100 Oximetry 07/31/21 08/01/21 08/01/21 23:31 00:01 00:10 Pulse Rate 80 73 76 Respiratory 17 14 12 Rate Blood Pressure 119/81 110/78 110/78 Blood Pressure [Right] O2 Sat by Pulse 100 100 100 Oximetry 08/01/21 08/01/21 08/01/21 00:12 00:14 00:16 Pulse Rate 73 72 74 Respiratory 14 17 10 L Rate Blood Pressure 110/78 110/78 110/78 Blood Pressure [Right] O2 Sat by Pulse 100 100 100 Oximetry 08/01/21 08/01/21 08/01/21 00:31 00:37 00:39 Pulse Rate 76 75 74 Respiratory 22 12 16 Rate Blood Pressure 97/61 97/61 97/61 Blood Pressure [Right] O2 Sat by Pulse 100 97 97 Oximetry 08/01/21 08/01/21 08/01/21 00:41 00:43 00:44 Pulse Rate 73 82 88 Respiratory 15 12 17 Rate Blood Pressure 97/61 97/61 97/61 Blood Pressure [Right] O2 Sat by Pulse 98 96 Oximetry 08/01/21 08/01/21 08/01/21 00:45 00:46 00:49 Pulse Rate 78 81 Respiratory 18 14 Rate Blood Pressure 97/61 97/61 97/61 Blood Pressure [Right] O2 Sat by Pulse 96 98 100 Oximetry 08/01/21 08/01/21 08/01/21 00:51 00:53 00:55 Pulse Rate Respiratory Rate Blood Pressure 97/61 97/59 97/59 Blood Pressure [Right] O2 Sat by Pulse 94 96 96 Oximetry 08/01/21 08/01/21 08/01/21 01:02 01:03 01:23 Pulse Rate 93 H Respiratory 17 Rate Blood Pressure 112/77 112/77 97/61 Blood Pressure [Right] O2 Sat by Pulse 97 97 100 Oximetry ED Medical Decision Making - Lab Data Result diagrams: 08/01/21 00:02 08/01/21 00:02 - EKG Data -: EKG Interpreted by Mi EKG shows normal: sinus rhythm Rate: normal - EKG Data Interpretation: no acute changes - Radiology Data Radiology results: report reviewed - Medical Decision Making Patient is 71 years old female with history of COPD, congestive heart failure and breast cancer currently on chemotherapy. Patient presented to the ER complaining of shortness of breath on and off for more than 1/2 months now. Patient stated that she is on oxygen. She denied any fever or chills. No chest pain. Cough or vomiting. No abdominal pain. Patient remained stable in the ER with a stable vital sign and oxygen saturation of 100%. Chest x-ray is unremarkable. EKG is negative for acute finding. Labs reviewed and is unremarkable including a BNP of 125. Patient symptoms is most likely related to her COPD. Patient given prescription for prednisone and advised to follow-up with her primary doctor in the next 2 to 3 days and to return to the ER if she develop any new symptoms. Critical care attestation.: If time is entered above; I have spent that time in minutes in the direct care of this critically ill patient, excluding procedure time. ED Disposition Clinical Impression: Shortness of breath, COPD exacerbation Disposition: 01 HOME / SELF CARE / HOMELESS Is pt being admited?: No Condition: Stable Instructions: Chronic Obstructive Pulmonary Disease (ED), Chronic Obstructive Pulmonary Disease Referrals: ANJU CASTRO MD [Primary Care Provider] - 3-5 Days
--- NOTE | 2021-07-31 22:00 | XRay Report ---
CHEST 1 VIEW INDICATION / CLINICAL INFORMATION: Dyspnea. COMPARISON: Chest radiograph 03/03/2021 FINDINGS: SUPPORT DEVICES: Right-sided Port-A-Cath noted with tip in the right atrium. HEART / MEDIASTINUM: No significant abnormality. LUNGS / PLEURA: No significant pulmonary or pleural abnormality. No pneumothorax. ADDITIONAL FINDINGS: No significant additional findings. IMPRESSION: 1. No acute findings. Signer Name: Diogenes Johnson MD Signed: 07/31/2021 9:55 PM Workstation Name: [id number]
[2021-08-01 01:00] LABS: Hemoglobin 11.4 gm/dl (10.1-14.3); Mean Corpuscular HGB Conc 32 % (30-34); Mean Corpuscular Volume 88 fl (79-97); Platelet Count 292 K/mm3 (140-440)
[2021-08-01 01:17] LABS: INR 1.01 (0.87-1.13)
[2021-08-01 01:18] LABS: Blood Urea Nitrogen 13 mg/dL (7-17); Calcium 9.1 mg/dL (8.4-10.2); Hemolysis Index 1; Partial Thromboplastin Time 31.1 Sec. (24.2-36.6)
[2021-08-01 01:22] LABS: Alanine Aminotransferase 11 units/L (7-56); Albumin 3.8 g/dL (3.9-5)
[2021-08-01 01:23] LABS: BUN/Creatinine Ratio 19; Bilirubin,Direct < 0.2 mg/dL (0-0.2)
[2021-08-01 02:02] VITALS: BP 105/64
[2021-08-01 02:03] LABS: Total Cells Counted 100
[2021-08-01 02:05] LABS: Macrocytosis 1+
[2021-08-01 02:06] LABS: Large Platelets Few; Platelet Estimate Consistent w Auto
--- NOTE | 2021-08-01 08:41 | Electrocardiograph Report ---
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
== END 2021-08-01 02:14 | disposition home or self-care (01) ==
LOC: ED 19:57
DX: J44.9 Chronic obstructive pulmonary disease, unspecified (principal); F17.200 Nicotine dependence, unspecified, uncomplicated; J45.909 Unspecified asthma, uncomplicated; I10 Essential (primary) hypertension; Z88.5 Allergy status to narcotic agent; E11.8 Type 2 diabetes mellitus with unspecified complications
CPT/HCPCS: 36415; 71045; 80048; 80076; 83880; 84484; 85007; 85025; 85610; 85730; 87040; 93005; 99284